=== PATIENT | male | born 1935 | race Caucasian/White ===

== ENCOUNTER 2016-11-14 22:14 | Emergency (ER) | payer BC, MEDICARE ==
[~2016-11-14] VITALS: Ht 172.7 cm; Wt 88.6 kg
[~2016-11-14 22:14] MED LIST: ACET-704 PO; AMLO5TAB2 PO; AMOX1TAB61 PO; ASCO-72 PO; ASCO10002 PO; ASPI-482 PO; CALC-157 PO; CALC600T4 PO; DIGO0.12 PO; FENO145T2 PO; FENO145T32 PO; FLAX100017 PO; FURO20TA3 PO; LISI10TA2 PO; LORA10TA3 PO; METF500T4 PO; METO200T3 PO; NIAC1000 PO; OMEG1CAP54 PO; POTA10CA PO; POTA15TA2 PO; PRED-220 PO; SILO8CAP PO; SPIR25TA3 PO; VALS320T2 PO; VIT1TABL2 PO; VITA150T PO; VITA400C37 PO; WARF1TAB7 PO; WARF2TAB7 PO
--- NOTE | 2016-11-14 22:46 | PHYS DOC ---
General Chief Complaint: MECHANICAL FALL Stated Complaint: head injury Time Seen by MD: 22:16 Source: patient, family, old records Exam Limitations: no limitations Problems: History of Present Illness Initial Comments Patient is an 81-year-old male who comes in the ED with his spouse with complaint of fall with head injury. Patient states that earlier this evening he was walking at home and stumbled/ rolled his right foot causing him to fall forward. He states that he landed on his right shoulder and forehead. Denies headache loss of consciousness photophobia and phonophobia and nausea vomiting focal weakness or neck pain. Patient takes Coumadin checked his INR at home prior to coming into the ED which resulted 2.6. Spouse states that after the patient fell she tried to get him up but he seemed more frustrated and exasperated that he has in the past with other falls. He initially complained of right shoulder pain but as I interview him he refuses evaluation stating that his shoulder no longer hurts. Pt states other than the abrasion on his forehead he is fine. Denies new or progressive symptoms. Spouse concerned for bleed due to coumadin, says they have been advised to come to ED with any fall that includes head trauma. Occurred: just prior to arrival Severity: moderate Injuries/Pain Location: head Context: tripped Loss of Consciousness: no loss of consciousness Modifying Factors: improves with other Associated Symptoms: denies symptoms Allergies: Coded Allergies: adhesive tape (Verified Allergy, Severe, Rash, 08/23/15) Past Medical History Medical History: other (CHF, hypertension, atrial fibrillation, hyperlipidemia , BPH, osteoarthritis, diabetes) Surgical History: other (cataracts, hernia, right ankle fusion, right elbow fracture) Social History Smoker: non-smoker Alcohol: none Drugs: none Review of Systems Constitutional: denies chills, denies diaphoresis, denies fever, denies malaise Eyes: denies blindness, denies blurred vision, denies photophobia Ears, Nose, Mouth, Throat: denies ear pain, denies ear discharge, denies nose pain, denies nose discharge, denies epistaxis, denies mouth pain, denies loose teeth, denies throat pain Respiratory: denies cough, denies shortness of breath, denies wheezing Cardiovascular: denies chest pain, denies palpitations, denies syncope Gastrointestinal: denies abdominal pain, denies diarrhea, denies nausea, denies vomiting Musculoskeletal: see HPI Skin: see HPI Psychiatric/Neurological: see HPI Physical Exam General Appearance: WD/WN, no apparent distress Head: no evidence of injury (small area of abrasion at the crown no swelling or palpable bony deformity. Otherwise head is normocephalic atraumatic negative Lees sign and negative raccoon eyes) Eyes: bilateral eye normal inspection, bilateral eye EOMI Ears, Nose, Mouth, Throat: hearing grossly normal, no evidence of ENT injury ( no ear or nose discharge no fluid behind TMs bilaterally), no dental injury Neck: non-tender, full range of motion, normal alignment Cardiovascular/Respiratory: normal peripheral pulses, no respiratory distress Back: no CVA tenderness, no vertebral tenderness Extremities: no evidence of injury, non-tender, pelvis stable Neurologic/Psychiatric: credit administration officer II-XII nml as tested, no motor/sensory deficits, alert, normal mood/affect, oriented x 3 Skin: normal color, warm/dry (small abrasion superior to forehead no bleeding/ fb) Milli Coma Score Best Eye Response: (4) open spontaneously Best Verbal Response: (5) oriented Best Motor Response: (6) obeys commands Milli Total: 15 Orders, Labs, Meds 0034: Time in Department [address] is pending patient will have prolonged ED course due to radiology delays. PATIENT: ALFREDO SHAH ACCOUNT: [id number] : 1935 LOCATION: ER AGE: 81 SEX: M EXAM STATUS: REG ER ORD. PHYSICIAN: DUSTIN GODOY DO REASON: fall/head trauma/coumadin PROCEDURE: CT HEAD AND CERVICAL SPINE WO Examination: CT head and cervical spine without contrast HISTORY: History of fall on Coumadin COMPARISON: None TECHNIQUE: Axial CT images of the head was performed without contrast. Axial images of the cervical spine was performed without contrast. Coronal and sagittal reformats were performed. Exposure: One or more of the following individualized dose reduction techniques were utilized for this examination: 1. Automated exposure control 2. Adjustment of the mA and/or kV according to patient size 3. Use of iterative reconstruction technique FINDINGS: There is no evidence of midline shift. There is no acute intracranial bleed or extra-axial fluid collection identified. The perez-white matter differentiation is maintained. Moderate bilateral periventricular white matter hypodensities likely chronic small vessel ischemic disease. The visualized lateral ventricles, third ventricle, fourth ventricle appropriate for age. The basal cisterns aren't effaced. Severe degenerative changes identified in the cervical spine throughout. Vertebral body heights are maintained. There is anterior cervical bony fusion at C4-C7 vertebral levels. The bilateral facets are well aligned. IMPRESSION: 1. No acute intracranial findings. 2. No acute fracture in cervical spine. Correlate clinically. 3. Severe degenerative changes cervical spine. There is bony fusion from C4 to C5 vertebral levels anteriorly with straightening of cervical lordosis. Electronically signed by: Jonah Garcia MD (11/15/2016 12:42 AM) DICTATED AND SIGNED BY: JONAH GARCIA MD DATE: 11/15/1637 CC: JESSICA BARILLAS MD; DUSTIN GODOY DO ~ I discussed findings with the patient he denies new or progressive symptoms. Patient becoming impatient requesting discharge. I discussed the treatment plan and follow-up patient and spouse expressed agreement and understanding. Departure Time of Disposition: 00:49 Disposition: HOME, SELF-CARE Diagnosis: fall, head injury, abrasion, chronic anticoagulati Condition: STABLE Patient Instructions: Fall Prevention and Home Safety, [id number], Head Injury, Adult, [id number] Additional Instructions: No strenuous activity or exercise until cleared by your doctor. Ice to painful areas 10-15 minutes 4-6 times daily as needed. [id number] Tylenol as needed for discomfort. Continue current medications. Take your time, request assistance or use assistive device as needed when standing and walking if feeling unstable. Follow-up with your doctor on Wednesday for recheck. Return to the ED with new or changing symptoms. DUSTIN GODOY DO Nov 14, 2016 22:46
--- NOTE | 2016-11-15 00:46 | RAD ---
Examination: CT head and cervical spine without contrast HISTORY: History of fall on Coumadin COMPARISON: None TECHNIQUE: Axial CT images of the head was performed without contrast. Axial images of the cervical spine was performed without contrast. Coronal and sagittal reformats were performed. Exposure: One or more of the following individualized dose reduction techniques were utilized for this examination: 1. Automated exposure control 2. Adjustment of the mA and/or kV according to patient size 3. Use of iterative reconstruction technique FINDINGS: There is no evidence of midline shift. There is no acute intracranial bleed or extra-axial fluid collection identified. The perez-white matter differentiation is maintained. Moderate bilateral periventricular white matter hypodensities likely chronic small vessel ischemic disease. The visualized lateral ventricles, third ventricle, fourth ventricle appropriate for age. The basal cisterns aren't effaced. Severe degenerative changes identified in the cervical spine throughout. Vertebral body heights are maintained. There is anterior cervical bony fusion at C4-C7 vertebral levels. The bilateral facets are well aligned. IMPRESSION: 1. No acute intracranial findings. 2. No acute fracture in cervical spine. Correlate clinically. 3. Severe degenerative changes cervical spine. There is bony fusion from C4 to C5 vertebral levels anteriorly with straightening of cervical lordosis. Electronically signed by: Jonah Garcia MD (11/15/2016 12:42 AM)
[2016-11-15 01:00] VITALS: BP 116/75
== END 2016-11-15 01:00 | disposition home or self-care (01) ==
LOC: ER 22:14
DX: S00.81XA Abrasion of other part of head, initial encounter (principal); S09.90XA Unspecified injury of head, initial encounter; I11.0 Hypertensive heart disease with heart failure; I50.9 Heart failure, unspecified; E78.5 Hyperlipidemia, unspecified; I48.91 Unspecified atrial fibrillation; N40.0 Benign prostatic hyperplasia without lower urinary tract symptoms; M19.90 Unspecified osteoarthritis, unspecified site; E11.36 Type 2 diabetes mellitus with diabetic cataract; Z88.8 Allergy status to other drugs, medicaments and biological substances; W19.XXXA Unspecified fall, initial encounter; Y92.89 Other specified places as the place of occurrence of the external cause; Y99.8 Other external cause status; Y93.01 Activity, walking, marching and hiking
CPT/HCPCS: 70450; 72125; 99284-25

== ENCOUNTER 2017-02-21 12:39 | Emergency (ER) | payer BC, MEDICARE ==
[~2017-02-21] VITALS: Ht 172.7 cm; Wt 88.6 kg
[~2017-02-21 12:39] MED LIST changes: -METO200T3 PO; +METO200T5 PO
[2017-02-21] MEDS ORDERED: cefTRIAXone IM 1 GM VIAL IM ONE (14:10)
--- NOTE | 2017-02-21 15:28 | RAD ---
CT orbits without contrast 02/21/2017 at 1348 hours Indication: Status post abscess removal of the inferior left eye. Comparison: CT orbits 11/14/2016 Technique: Multiple axial CT images of the orbits were obtained without intravenous contrast. Coronal and sagittal reformats are provided. Findings: There is low-attenuation in the periventricular white matter compatible with chronic small vessel ischemic changes. Mild prominence the ventricles, sulci and basal cisterns is compatible with mild generalized cerebral volume loss. Paranasal sinuses are well aerated. Bilateral lens replacement noted. There is left orbital preseptal soft tissue thickening. No post septal fat stranding is identified. Intraconal and extra coronal fat is preserved. Extraocular muscles are intact. Optic nerves appear normal. Impression: Findings are compatible with left preseptal cellulitis without orbital extension. No subperiosteal abscess. PQRS Compliance Statement: One or more of the following individualized dose reduction techniques were utilized for this examination: 1. Automated exposure control 2. Adjustment of the mA and/or kV according to patient size 3. Use of iterative reconstruction technique
[2017-02-21] MEDS ORDERED: CLIN300C8 PO (15:35)
--- NOTE | 2017-02-21 15:35 | PHYS DOC ---
General Chief Complaint: SKIN PROBLEM Stated Complaint: SKIN PROBLEM Time Seen by MD: 13:31 Source: patient Exam Limitations: no limitations Problems: History of Present Illness Initial Comments Patient is an 82-year-old male sent to the ED by his stock unloader for antibiotic prescription. Patient states that he had an abscess removed from his left eyelid earlier this week with Dr. Carrasco. The past 2 days she's had increased swelling and tenderness at the inferolateral and supraorbital regions. He denies any vision change and states he has discomfort rated 3 out of 10 sharp and throbbing. He has warmth at the red and tender areas on his face and has painless extraocular movements. He called Dr. Carrasco earlier today called in cephalexin to the pharmacy. The pharmacist states that the prescription recording was cut off and he was unable to fill any prescriptions. The patient tried to contact Dr. Carrasco again who was unable to reach pharmacist and directed the patient to come to the ED for a cephalexin prescription. Dr. Carrasco has not seen the patient since he developed a swelling patient is afebrile and no tachycardia on ED arrival. I discussed needed with the patient to check a CT to rule out orbital involvement he and his spouse are agreeable. Timing/Duration: last week Severity: moderate Location: eye (L) Prearrival Treatment: over the counter meds Modifying Factors: improves with other Associated Symptoms: other Allergies: Coded Allergies: adhesive tape (Verified Allergy, Severe, Rash, 08/23/15) amiodarone (Verified Allergy, Mild, 02/22/17) HAIR FALLS OUT Past Medical History Medical History: other (atrial fibrillation, arthritis, hyperlipidemia, hypertension) Surgical History: noncontributory Social History Smoker: non-smoker Alcohol: rarely Drugs: none Constitutional: denies chills, denies diaphoresis, denies fever, denies malaise Eyes: see HPI, denies blindness, denies blurred vision, denies drainage, denies decreased acuity Ears: denies dizziness, denies pain, denies tinnitus Nose: denies clots, denies congestion, denies epistaxis Throat: denies pain, denies swelling, denies neck stiffness, denies painful swallowing Respiratory: denies cough, denies shortness of breath Cardiovascular: denies chest pain, denies palpitations Gastrointestinal: denies nausea, denies vomiting Skin: see HPI Neurological: denies headache, denies numbness, denies paresthesia Physical Exam General Appearance: WD/WN, no apparent distress Eyes: left eye other (erythema and tenderness and warmth noted at the supra and infraorbital regions of the left face. No fluctuance or purulence no eye drainage), bilateral eye normal inspection, bilateral eye PERRL, bilateral eye EOMI Nose: normal inspection Mouth/Throat: normal mouth inspection, pharynx normal Neck: non-tender, supple Cardiovascular/Respiratory: normal peripheral pulses, normal breath sounds, no respiratory distress Neurologic/Psychiatric: failure analysis engineer II-XII nml as tested, no motor/sensory deficits, alert, normal mood/affect, oriented x 3 Skin: warm/dry (left face as above) Orders, Labs, Meds PATIENT: ALFREDO SHAH ACCOUNT: [id number] : 1935 LOCATION: ER AGE: 82 SEX: M EXAM STATUS: REG ER ORD. PHYSICIAN: DUSTIN GODOY DO REASON: s/p abscess removal inferior left eye, r/o orbital cellulitis PROCEDURE: CT ORBITS WO CONTRAST CT orbits without contrast 02/21/2017 at 1348 hours Indication: Status post abscess removal of the inferior left eye. Comparison: CT orbits 11/14/2016 Technique: Multiple axial CT images of the orbits were obtained without intravenous contrast. Coronal and sagittal reformats are provided. Findings: There is low-attenuation in the periventricular white matter compatible with chronic small vessel ischemic changes. Mild prominence the ventricles, sulci and basal cisterns is compatible with mild generalized cerebral volume loss. Paranasal sinuses are well aerated. Bilateral lens replacement noted. There is left orbital preseptal soft tissue thickening. No post septal fat stranding is identified. Intraconal and extra coronal fat is preserved. Extraocular muscles are intact. Optic nerves appear normal. Impression: Findings are compatible with left preseptal cellulitis without orbital extension. No subperiosteal abscess. PQRS Compliance Statement: One or more of the following individualized dose reduction techniques were utilized for this examination: 1. Automated exposure control 2. Adjustment of the mA and/or kV according to patient size 3. Use of iterative reconstruction technique DICTATED AND SIGNED BY: ALLISON VERMA MD DATE: 02/21/17 1523 CC: JESSICA BARILLAS MD; DUSTIN GODOY DO ~ I discussed prescription medications and prescribed clindamycin for MRSA coverage and no interactions with Coumadin. I discussed signs and symptoms to monitor and indications to return the patient will follow-up closely with Dr. Carrasco. Departure Time of Disposition: 15:33 Disposition: 01 HOME, SELF-CARE Diagnosis: postoperative left facial cellulitis Condition: GOOD Patient Instructions: Cellulitis, Ylsu-sj-Tyor Additional Instructions: Pufx-pou-yaoenyp Tylenol as needed for discomfort. Prescription: Clindamycin, take as directed (no interaction with Coumadin and will cover MRSA) Follow-up with Dr. Carrasco in 1-2 days for recheck. Return to ED with new or changing symptoms. DUSTIN GODOY DO Feb 21, 2017 15:35
[2017-02-21 15:52] VITALS: BP 126/65
[2017-02-22] MEDS ORDERED: WARF1TAB74 PO (15:14)
[2017-02-25] MEDS ORDERED: AMOX1TAB61 PO (07:32)
== END 2017-02-21 15:53 | disposition home or self-care (01) ==
LOC: ER 12:39
DX: L76.82 Other postprocedural complications of skin and subcutaneous tissue (principal); L03.211 Cellulitis of face; I48.91 Unspecified atrial fibrillation; I10 Essential (primary) hypertension; E78.5 Hyperlipidemia, unspecified; Z88.8 Allergy status to other drugs, medicaments and biological substances; Z91.048 Other nonmedicinal substance allergy status; Y83.8 Other surgical procedures as the cause of abnormal reaction of the patient, or of later complication, without mention of misadventure at the time of the procedure; Y92.89 Other specified places as the place of occurrence of the external cause
CPT/HCPCS: 70480; 96372; 99284; J0696

== ENCOUNTER 2017-02-22 13:36 | Inpatient (IN) | payer BC, MEDICARE ==
[~2017-02-22] VITALS: Ht 172.7 cm; Wt 83.1 kg
[~2017-02-22 13:36] MED LIST changes: +CLIN300C8 PO
[2017-02-22 13:50] VITALS: BP 121/68
[2017-02-22 14:11] VITALS: BP 121/68
[2017-02-22] MEDS ORDERED: HYDROcodone/APAP 5/325MG 1 TAB TABLET PO PRN (14:30)
[2017-02-22] MEDS ORDERED: ONDANSETRON ODT 4 MG TAB.RAPDIS PO PRN (14:30)
[2017-02-22] MEDS ORDERED: ACETAMINOPHEN 325 MG TABLET PO PRN (14:30)
[2017-02-22 14:46] LABS: COLOR,URINE YELLOW
[2017-02-22 14:47] LABS: BACTERIA,URINE FEW /HPF (0-FEW); BILIRUBIN,URINE NEG (NEG); CLARITY,URINE CLEAR; GLUCOSE,URINE NEG (NEG); HYALINE CASTS, URINE FEW /HPF; NITRITE,URINE NEG (NEG); SQUAMOUS EPITHELIAL CELL,UR OCC /LPF; UROBILINOGEN,URINE 0.2 mg/dL (0.2 mg/dL)
[2017-02-22] MEDS ORDERED: VANCOMYCIN 2 GM in IV NORMAL SALINE 500ML 500 ML IV ONE (15:00)
[2017-02-22 15:14] LABS: BASO # 0.1 x10^3/uL (0.0-0.2); BASO % 1 % (0-3); EOS # 0.3 x10^3/uL (0.0-0.7); EOS % 7 % (0-3); HEMATOCRIT 38.9 % (39.0-53.0); HEMOGLOBIN 13.3 g/dL (13.0-17.5); LYMPH # 1.1 x10^3/uL (1.0-4.8); LYMPH % 24 % (24-48); MEAN CORPUSCULAR HEMOGLOBIN 33 pg (25-35); MEAN CORPUSCULAR HGB CONC 34 g/dL (31-37); MEAN CORPUSCULAR VOLUME 95 fL (79-100); MONO # 0.6 x10^3/uL (0.0-1.1); MONO % 14 % (0-9); NEUT # 2.4 x10^3uL (1.8-7.7); NEUT % 54 % (31-73); PLATELET COUNT 150 x10^3/uL (140-400); RED BLOOD COUNT 4.08 x10^6/uL (4.30-5.70); WHITE BLOOD COUNT 4.4 x10^3/uL (4.0-11.0)
[2017-02-22] MEDS ORDERED: WARF1TAB74 PO (15:14)
[2017-02-22 15:24] LABS: ALBUMIN/GLOBULIN RATIO 0.9 (1.0-1.7); CALCIUM 9.1 mg/dL (8.5-10.1); CREATININE 1.4 mg/dL (0.7-1.3); GFR 48.6; MAGNESIUM 1.8 mg/dL (1.8-2.4); POTASSIUM 3.8 mmol/L (3.5-5.1); TOTAL BILIRUBIN 0.8 mg/dL (0.2-1.0); TOTAL PROTEIN 6.4 g/dL (6.4-8.2)
[2017-02-22] MEDS ORDERED: IV NORMAL SALINE 250ML 250 ML ONE (16:32)
[2017-02-22] MEDS: WARFARIN 1 MG TABLET. PO SCH (16:57)
[2017-02-22] MEDS: VANCOMYCIN PER PHARMACY MC PRN (17:15)
--- NOTE | 2017-02-22 17:16 | NUR ---
Pharmacy Vancomycin Dosing Note S:Consulted to monitor and dose vancomycin started 02/22/17. O:ALFREDO SHAH is a 82 year old M with Cellulitis . Height: 5 feet, 8 inches Weight: 87.865389 kg [place] Body Weight: Adjusted Body Weight: Dosing Weight: Actual Other Antibiotics: ZOSYN 4.5GRAM Q8HRS LABS: Last BUN: 30 Last Creatinine: 1.4 Creatinine Clearance: Last WBC: 4.4 Last Platelets: 150 Tmax (past 24 hours): Microbiology: I/O: Drug Levels: Last level: on at Last dose given 02/22/17 at 1658 Vancomycin Dosing: Loading Dose: 2000 mg x1 Dosing Weight: Actual Target Trough: 10-20 A: Based on: P: 1. Start Vancomycin 1500 mg IV q24h 2. Follow up Trough level on 02/24/17 at 1630 3. Pharmacy will continue to monitor, follow and adjust therapy as needed. CATY MEYER [facility], 02/22/17 2700
--- NOTE | 2017-02-22 18:47 | NUR ---
NSG NOTE; ADMISSION DIRECT ADMIT FROM DR GUZMAN OFFICE VIA W/C ACCOMP BY PT C/O CELLULITIS LEFT FACE DEVELOPING SINCE CYST REMOVAL ON 02-08-17.
[2017-02-22 19:00] VITALS: BP 144/86
--- NOTE | 2017-02-22 19:14 | NUR ---
Wound Care Wound care consult for cellulitis in L face and wraps on legs. Pt has dark red area from left eye to chin but has no open areas for wound care. He stated it was draining yesterday but it had stopped. Told pt if it started again he can let us know and we will reassess. Pt had unna boots on BLE that were placed last Wednesday by HHRN. Removed them, cleansed legs and rewrapped with calazime, medigrip-G, kerlix and coban. Pt stated if they are not wrapped they will swell and blister. Pt BLE have no open areas or edema at this time. Educated pt that these wraps will work as replacement until he can have HH rewrap them. Discussed circaid wraps with pt and , they will discuss with HH how to obtain these wraps so he can remove them to shower, etc. Pt is known to [facility] from previous BLE wounds, he will follow up outpatient if he develops any new wounds in the future. Will continue to monitor cellulitis and legs while inpatient. Next visit will be 03/02 if still here.
[2017-02-22] MEDS: PIPERACILLIN/TAZOBACTAM 4.5 GM in IV NORMAL SALINE 50ML 50 ML IV SCH (19:26)
--- NOTE | 2017-02-22 20:27 | HP ---
ADMIT DATE: 02/22/2017 REASON FOR ADMISSION: Cellulitis of the face. HISTORY OF PRESENT ILLNESS: This is an 82-year-old gentleman who had a skin lesion removed under his left eye on Wednesday02/16/2017. The left side of his face became progressively swollen and red and he went to the Emergency Room on 02/21/2017. A CAT scan was done in the Emergency Room, which showed the cellulitis, but not involving the orbits. No blood work at that time, but he did receive a shot of Rocephin and clindamycin prescription for 300 mg 3 times a day. PAST MEDICAL HISTORY: Atrial fibrillation, hypertension, BPH, chronic pain and diet-controlled type 2 diabetes. Also he has chronic lower extremity swelling and is under treatment with Wound Care for weeping and swelling in the lower extremities and he has weakly wrapping and treatment of the legs by Wound Care at home. ALLERGIES: ADHESIVE TAPE AND AMIODARONE. MEDICATIONS: Reviewed and verified with the patient. PAST SURGICAL HISTORY: Cataract removal, hernia repair, recent small lesion removed under his left eye. Right ankle fusion. Growth removed from left thigh. FAMILY HISTORY: Hyperlipidemia in his mother, dementia in his father. HABITS: Never smoked. Does drink caffeine. Occasional alcohol. IMMUNIZATIONS: Pneumococcal PCV13 on 09/07/2016. Flu shot 2014, and vari-zoster immunization February 2016. REVIEW OF SYSTEMS: As per HPI. OBJECTIVE: VITAL SIGNS: Blood pressure 121/68, pulse 65, respirations 18, temperature 97.7, pulse ox is 93% on room air. Height 68 inches, weight 192.13 pounds. GENERAL: An 82-year-old in no acute distress. HEENT: Ear canals are normal. Face is swollen and erythematous. No drainage from the nose. He has swelling on the left side of his face. Suture line is intact. There is 1 running suture outside of the skin. There is some mild drainage. The eye is open, it is not injected. Vision is normal. His throat was clear. NECK: Supple. LUNGS: Clear to auscultation. CARDIOVASCULAR: Regular rhythm and rate. ABDOMEN: Soft, nontender. EXTREMITIES: Were wrapped and did not appear to have edema. LABORATORY DATA: White count is 4.4, hemoglobin 13.3, hematocrit 38.9. Chemistry: CO2 is 36, BUN is 30, creatinine is 1.4, albumin 3.0. INR is 1.8. Urinalysis has 1-4 white cells and a few red cells. ASSESSMENT: 1. Periorbital cellulitis. 2. Facial cellulitis with extension to the right cheek. 3. Chronic lower extremity swelling and weeping. 4. Chronic kidney disease stage 3. 5. Mild protein calorie malnutrition. 6. Long-term use of anticoagulants. Coumadin just slightly below therapeutic range. PLAN: IV antibiotics. Wound consult also for the lower extremities. She is due for a change tomorrow. Consult to Dr. Ti Martini. DOMINGO REDMAN DO DR: KRISHNA/rodolfo JOB#: [id number] / [id number] JESSICA Larose MD
--- NOTE | 2017-02-22 20:55 | NUR ---
Post void bladder scan 153ml.
[2017-02-22] MEDS ORDERED: Influenza vaccine per PROTOCOL. MC PRN (21:00)
[2017-02-22] MEDS: ASPIRIN ENTERIC COATED 81 MG TABLET.DR. PO SCH (21:24)
[2017-02-22] MEDS: FENOFIBRATE NANOCRYSTALLIZED 145 MG TABLET PO SCH (21:25)
[2017-02-22] MEDS: TAMSULOSIN 0.4 MG CAP.ER.24H. PO SCH (21:25)
[2017-02-22 23:00] VITALS: BP 97/52
[2017-02-23] MEDS: PIPERACILLIN/TAZOBACTAM 4.5 GM in IV NORMAL SALINE 50ML 50 ML IV SCH ×4 (00:25→22:54)
[2017-02-23 03:00] VITALS: BP 118/64
[2017-02-23 05:47] VITALS: BP 130/75
[2017-02-23 06:29] LABS: BASO % 1 % (0-3); EOS # 0.4 x10^3/uL (0.0-0.7); EOS % 8 % (0-3); HEMATOCRIT 39.9 % (39.0-53.0); HEMOGLOBIN 13.9 g/dL (13.0-17.5); LYMPH # 1.4 x10^3/uL (1.0-4.8); LYMPH % 29 % (24-48); MEAN CORPUSCULAR HEMOGLOBIN 33 pg (25-35); MEAN CORPUSCULAR HGB CONC 35 g/dL (31-37); MEAN CORPUSCULAR VOLUME 95 fL (79-100); MONO # 0.5 x10^3/uL (0.0-1.1); MONO % 11 % (0-9); NEUT # 2.4 x10^3uL (1.8-7.7); NEUT % 50 % (31-73); PLATELET COUNT 144 x10^3/uL (140-400); RED CELL DISTRIBUTION WIDTH 15.7 % (11.5-14.5); WHITE BLOOD COUNT 4.8 x10^3/uL (4.0-11.0)
[2017-02-23 06:42] LABS: ALBUMIN/GLOBULIN RATIO 0.9 (1.0-1.7); CREATININE 1.4 mg/dL (0.7-1.3); GFR 48.6; MAGNESIUM 1.8 mg/dL (1.8-2.4); TOTAL BILIRUBIN 1.1 mg/dL (0.2-1.0); TOTAL PROTEIN 6.5 g/dL (6.4-8.2)
--- NOTE | 2017-02-23 06:59 | CONS ---
DATE OF CONSULTATION: 02/22/2017 TIME: 17:30 hours. PHYSICIAN REQUESTING CONSULTATION: Dixie Longo DO. CHIEF COMPLAINT: Swollen left side of face. HISTORY OF PRESENT ILLNESS: This 82-year-old male underwent an excisional biopsy of the lesion involving the left lower lid and upper cheek 1 week ago. This weekend, 3 days ago, the patient's called me via answering service complaining of some swelling on the side of the face around the site of the incision. She states her has frequent cellulitis and she was concerned about this. A prescription for Keflex 500 mg b.i.d. was called into the pharmacy, but by the next day, the patient called and stated that they did not get the medication as the pharmacy did not have it. At this point, she said the swelling was worse, therefore, she was instructed to go to the Emergency Room for treatment. The patient was then placed on clindamycin and sent home. This morning, the patient's felt that he was worse, therefore, he was taken into Dr. Luna's office. Dr. Luna discussed the case with me by phone. He felt that the skin looked bad enough that he should be admitted for IV therapy. The patient states that since this morning, the swelling has gotten significantly better. He denies pain or change in vision. He does state he had a slightly discolored discharge from the wound yesterday. The patient has had a CT scan and per Dr. Luna, all the swelling was preseptal. The patient is now on Zosyn and vancomycin IV. ALLERGIES: INCLUDE ADHESIVE TAPE AND AMIODARONE. PAST MEDICAL HISTORY: Includes recurrent cellulitis of the leg, pneumonia, atrial fibrillation, congestive heart failure, myocardial infarction, increased cholesterol, sleep apnea. PAST SURGICAL HISTORY: Includes an open reduction and fixation of the right ankle, hernia repair. FAMILY HISTORY: Significant for hypertension, diabetes, cardiovascular disease. SOCIAL HISTORY: The patient lives at home with his . REVIEW OF SYSTEMS: Please see admitting physician history and physical. MEDICATIONS: Please see . PHYSICAL EXAMINATION: Done at bedside. GENERAL: He is a well-developed, well-nourished male in no acute distress. He is alert and oriented x 3. External evaluation reveals significant erythema and ecchymosis involving the upper lid, infraorbital cheek and to the mandible over to the nose on the left side. It is nontender to touch. There is no discharge and there is no tenderness to palpation. No swelling is actually noted at the present time. The conjunctiva is quiet. Pupils are equal, round, reactive to light. The globe was intact. There is no evidence of restricted motility and the surgical wound is intact. No discharge. The wound edges were opposed well. IMPRESSION: 1. Preseptal cellulitis, apparently resolving, responding well to intravenous antibiotics. 2. Ecchymosis secondary to anticoagulation. PLAN: Agree with present treatment. I will see the patient in the office to remove his sutures later this week. Thank you for consulting me in this case. Please let me know if there is more that I can do. JANE ROME DO DR: José Miguel JOB#: [id number] / [id number]
[2017-02-23] MEDS ORDERED: NON FORMULARY ITEM (Flaxseed Oil (Flax Seed Oil) 1,000 MG) PO SCH (09:00)
[2017-02-23] MEDS: VITAMIN E. 400 UNIT CAPSULE. PO SCH (09:04)
[2017-02-23] MEDS: OMEGA-3 FATTY ACIDS/FISH OIL 1,000 MG CAPSULE. PO SCH (09:05)
[2017-02-23] MEDS: LOSARTAN 50 MG TABLET. PO SCH (09:06)
[2017-02-23] MEDS: CETIRIZINE HCL 10 MG TABLET PO SCH (09:06)
[2017-02-23] MEDS: CALCIUM CARB/VIT D3 500/200 TABLET PO SCH (09:06)
[2017-02-23] MEDS: FUROSEMIDE 40 MG TABLET PO SCH (09:06)
[2017-02-23] MEDS: METOPROLOL SUCC 24HR ER 50 MG TAB.ER.24H. PO SCH (09:06)
[2017-02-23] MEDS: POTASSIUM CHLORIDE 10 MEQ TABLET.ER. PO SCH (09:07)
[2017-02-23 11:26] VITALS: BP 133/69
--- NOTE | 2017-02-23 14:17 | NUR ---
Pharmacy Warfarin Dosing Note S:Pharmacy consulted to assist with anticoagulation therapy started 02/22/17 with target INR: 2 -3 O:ALFREDO SHAH is a 82 year old M with Atrial Fibrillation LABS: Last INR: 1.9 Last HGB: 13.9 Last HCT: 39.9 Last PLT: 144 Last dose of 1 mg given on 02/22/17 at 1600 Previous Regimen: 1MG/ 1.5MG DAILY ALTERNATING Vitamin K given: N Drug Interaction Changes: Same Interacting Drug Ongoing Drug Interactions: A:INR Below desired Range. Target Range for this patient is: 2 -3 P: Warfarin dose: 1.5MG HOME DOSE Today at 1600 Bridge Therapy: None Next INR due 02/24/17 @ 0600 Pharmacy anticoagulation service will continue to follow. CATY MEYER [facility], 02/23/17 6912
[2017-02-23 15:00] VITALS: BP 135/73
[2017-02-23] MEDS ORDERED: WARFARIN 1 MG TABLET. PO SCH (16:00)
[2017-02-23] MEDS: VANCOMYCIN 1.5 GM in IV NORMAL SALINE 500ML 500 ML IV SCH (17:05)
[2017-02-23 19:00] VITALS: BP 154/95
[2017-02-23] MEDS: ASPIRIN ENTERIC COATED 81 MG TABLET.DR. PO SCH (20:56)
[2017-02-23] MEDS: FENOFIBRATE NANOCRYSTALLIZED 145 MG TABLET PO SCH (20:56)
[2017-02-23] MEDS: TAMSULOSIN 0.4 MG CAP.ER.24H. PO SCH (20:56)
[2017-02-23 23:00] VITALS: BP 148/89
--- NOTE | 2017-02-24 01:51 | PN ---
DATE: PROBLEMS: 1. Periorbital cellulitis. 2. Facial cellulitis. 3. Status post lesion removal of the left lower lid and cheek. 4. Chronic kidney disease, stage III. 5. Chronic lower extremity swelling and weeping. 6. Long-term use of anticoagulants, INR 1.9. 7. Mild protein malnutrition. SUBJECTIVE: He is doing a little bit better this morning. Facial swelling has decreased. He is sitting up, eating his breakfast. He was seen by Dr. Carrasco, network operations center engineer, yesterday in consultation. He is afebrile. OBJECTIVE: VITAL SIGNS: Blood pressure 130/75, pulse 80, respirations 18, pulse ox 94% on room air, temperature 97.6, alert and oriented. HEENT: Tongue was moist. NECK: Supple. LUNGS: Clear. CARDIOVASCULAR: Slightly irregular rhythm and rate. ABDOMEN: Soft, nontender. EXTREMITIES: Without edema as they are wrapped. His face swelling and erythema has decreased considerably, but still has erythema, no drainage noted. LABORATORY DATA: Today, BUN is 28 and creatinine is 1.4. Alkaline phosphatase 157, decreased from 182. Albumin is 3. INR is 1.9. PLAN: Continue IV antibiotics. He also has mild protein malnutrition with an albumin of 3.0. We will go ahead and in Boost daily. DOMINGO REDMAN DO DR: KRISHNA/rodolfo JOB#: [id number] / [id number]
[2017-02-24 03:59] VITALS: BP 133/85
[2017-02-24] MEDS: PIPERACILLIN/TAZOBACTAM 4.5 GM in IV NORMAL SALINE 50ML 50 ML IV SCH ×3 (05:45→22:26)
[2017-02-24 06:22] LABS: BASO # 0.1 x10^3/uL (0.0-0.2); BASO % 1 % (0-3); EOS # 0.4 x10^3/uL (0.0-0.7); EOS % 7 % (0-3); HEMATOCRIT 38.7 % (39.0-53.0); HEMOGLOBIN 13.4 g/dL (13.0-17.5); LYMPH % 20 % (24-48); MEAN CORPUSCULAR HEMOGLOBIN 33 pg (25-35); MEAN CORPUSCULAR HGB CONC 35 g/dL (31-37); MEAN CORPUSCULAR VOLUME 95 fL (79-100); MONO # 0.5 x10^3/uL (0.0-1.1); MONO % 10 % (0-9); NEUT # 3.1 x10^3uL (1.8-7.7); NEUT % 62 % (31-73); PLATELET COUNT 133 x10^3/uL (140-400); RED BLOOD COUNT 4.07 x10^6/uL (4.30-5.70); RED CELL DISTRIBUTION WIDTH 15.3 % (11.5-14.5); WHITE BLOOD COUNT 5.1 x10^3/uL (4.0-11.0)
[2017-02-24 06:30] LABS: ALBUMIN 2.9 g/dL (3.4-5.0); ALBUMIN/GLOBULIN RATIO 0.8 (1.0-1.7); CALCIUM 8.7 mg/dL (8.5-10.1); CREATININE 1.4 mg/dL (0.7-1.3); GFR 48.6; MAGNESIUM 1.8 mg/dL (1.8-2.4); POTASSIUM 3.7 mmol/L (3.5-5.1); TOTAL BILIRUBIN 1.1 mg/dL (0.2-1.0); TOTAL PROTEIN 6.6 g/dL (6.4-8.2)
[2017-02-24 08:20] VITALS: BP 153/53
[2017-02-24] MEDS: CETIRIZINE HCL 10 MG TABLET PO SCH (08:22)
[2017-02-24] MEDS: FUROSEMIDE 40 MG TABLET PO SCH (08:23)
[2017-02-24] MEDS: LOSARTAN 50 MG TABLET. PO SCH (08:23)
[2017-02-24] MEDS: VITAMIN E. 400 UNIT CAPSULE. PO SCH (08:23)
[2017-02-24] MEDS: POTASSIUM CHLORIDE 10 MEQ TABLET.ER. PO SCH (08:24)
[2017-02-24] MEDS: CALCIUM CARB/VIT D3 500/200 TABLET PO SCH (08:24)
[2017-02-24] MEDS: OMEGA-3 FATTY ACIDS/FISH OIL 1,000 MG CAPSULE. PO SCH (08:24)
[2017-02-24] MEDS: METOPROLOL SUCC 24HR ER 50 MG TAB.ER.24H. PO SCH (08:25)
--- NOTE | 2017-02-24 08:43 | NUR ---
Pt is sitting up on bedside, just finished with breakfast, ate well. Has O2 on at 2L/NC as pt has increasingly became SOA through the night. SpO2 had dropped to 87%, with O2 on he was at 98% so decreased to 1L at this time. Pt denies any pain. IV site in LAC flushed and capped. Urinal emptied 100cc of clear yellow urine. Assessment completed. Pt A/O x4/. Bilateral lower extremities have uniboots on. Denies further needs at this time, call light within reach.
[2017-02-24] MEDS ORDERED: Influenza vaccine per PROTOCOL. MC PRN (09:00)
[2017-02-24] MEDS ORDERED: FLU VACC QS2017-18 (36MOS+)/PF 0.5 ML SYRINGE. VAX IM ONE (09:00)
--- NOTE | 2017-02-24 09:04 | RAD ---
Indication shortness of air. A single view of the chest was obtained and is compared to an examination 07/29/2016. There are chronic pleural-parenchymal changes. Heart and pulmonary vessels are similar. A significant change in the appearance of the chest is not seen. There is no significant pleural fluid. There is no pneumothorax. IMPRESSION: Chronic changes. No definite acute finding or significant change relative to the previous exam is seen
[2017-02-24 10:50] VITALS: BP 111/62
--- NOTE | 2017-02-24 13:34 | NUR ---
Pharmacy Warfarin Dosing Note S:Pharmacy consulted to assist with anticoagulation therapy started 02/22/17 with target INR: 2 -3 O:ALFREDO SHAH is a 82 year old M with Atrial Fibrillation LABS: Last INR: 2.2 Last HGB: 13.4 Last HCT: 38.7 Last PLT: 133 Last dose of 1.5MG given on 02/23/17 at 1600 Previous Regimen: 1MG/ 1.5MG DAILY ALTERNATING Vitamin K given: N Drug Interaction Changes: Same Interacting Drug A:INR is within the desired range. Target range for this patient is: 2 -3 P: Warfarin dose: Coumadin 1mg po today at 1600 Bridge Therapy: None Next INR due 02/25/17. Pharmacy anticoagulation service will continue to follow. MARISA DALAL [facility] 02/24/17 [id number]
--- NOTE | 2017-02-24 14:20 | CARD ---
APPROVED REPORT EXAM: Two-dimensional and M-mode echocardiogram with Doppler and color Doppler. Other Information Quality : Fair Rhythm : Atrial Flutter INDICATION Elevated BNP, hypoxia 2D DIMENSIONS RVDd3.3 (2.9-3.5cm)Left Atrium(2D)3.3 (1.6-4.0cm) IVSd1.1 (0.7-1.1cm)Aortic Root(2D)2.9 (2.0-3.7cm) LVDd4.4 (3.9-5.9cm)LVOT Diameter2.2 (1.8-2.4cm) PWd1.1 (0.7-1.1cm)LVDs2.7 (2.5-4.0cm) FS (%) 30.1 %SV58.2 ml LVEF(%)60.3 (>50%) Aortic Valve AoV Peak Arnaldo.203.4cm/sAoV VTI40.3cm AO Peak GR.16.5mmHgLVOT Peak Arnaldo.80.2cm/s LVOT VTI 16.09cmAO Mean GR.9mmHg KEN (VMAX)1.68zx1WML (VTI)1.49cm2 Mitral Valve MV E Zgpcowvi349.4cm/sMV E Peak Gr.4mmHg MV DECEL HAIZ192iwDE A Velocity0.4cm/s MV E Mean Gr.2mmHgMV LNI45mc E/A Mvbph596.5MVA (PHT)4.51cm2 Tricuspid Valve TR P. Ewrsexap162jt/sRAP VDLBWEPJ1bwZh TR Peak Gr.47ghCpPIEF39kxPb LEFT VENTRICLE The left ventricle is normal size. There is normal left ventricular wall thickness. Left ventricle sy stolic function is normal. The Ejection Fraction is 55-60%. There is normal LV segmental wall motion. There is no ventricular septal defect visualized. RIGHT VENTRICLE The right ventricle is normal size. The right ventricular systolic function is normal. ATRIA The left atrium size is normal. The right atrium size is normal. The interatrial septum is intact wit h no evidence for an atrial septal defect or patent foramen ovale as noted on 2-D or Doppler imaging. AORTIC VALVE The aortic valve is moderately calcified. The aortic valve is trileaflet. Doppler and Color Flow reve aled no significant aortic regurgitation. Mild aortic stenosis with a calculated aortic valve area is 1.5 cm2 with maximum pressure gradient of 17 mmHg and mean pressure gradient of 9 mmHg. MITRAL VALVE Mitral annular calcification is borderline. There is no mitral valve stenosis. Doppler and Color Flow revealed mild mitral regurgitation. TRICUSPID VALVE The tricuspid valve is normal in structure and function. Doppler and Color Flow revealed mild tricusp id regurgitation. The PA pressure was estimated at 50 mmHg. There is no tricuspid valve stenosis. PULMONIC VALVE The pulmonic valve is not well visualized. Doppler and Color Flow revealed no pulmonic valvular regur gitation. There is no pulmonic valvular stenosis. GREAT VESSELS The aortic root is normal in size. Due to poor image quality, the IVC could not be assessed. PERICARDIAL EFFUSION There is no evidence of significant pericardial effusion. Critical Notification Critical Value: No <Conclusion> The left ventricle is normal size. Left ventricle systolic function is normal. The Ejection Fraction is 55-60%. Mild aortic stenosis with a calculated aortic valve area is 1.5 cm2 with maximum pressure gradient of 17 mmHg and mean pressure gradient of 9 mmHg. Doppler and Color Flow revealed no significant aortic regurgitation. Doppler and Color Flow revealed mild mitral regurgitation. Doppler and Color Flow revealed mild tricuspid regurgitation. The PA pressure was estimated at 50 mmHg.
[2017-02-24 15:39] VITALS: BP 102/64
[2017-02-24] MEDS: WARFARIN 1 MG TABLET. PO SCH (16:19)
[2017-02-24 17:29] LABS: VANC TR 16.3 mcg/mL (10.0-20.0)
[2017-02-24] MEDS: VANCOMYCIN 1.5 GM in IV NORMAL SALINE 500ML 500 ML IV SCH (18:18)
[2017-02-24 18:46] VITALS: BP 117/69
[2017-02-24] MEDS: TAMSULOSIN 0.4 MG CAP.ER.24H. PO SCH (20:28)
[2017-02-24] MEDS: ASPIRIN ENTERIC COATED 81 MG TABLET.DR. PO SCH (20:28)
[2017-02-24] MEDS: FENOFIBRATE NANOCRYSTALLIZED 145 MG TABLET PO SCH (20:28)
[2017-02-24 23:00] VITALS: BP 126/72
--- NOTE | 2017-02-25 00:09 | PN ---
DATE: 02/24/2017 CURRENT PROBLEMS: 1. Periorbital cellulitis. 2. Facial cellulitis. 3. Status post lesion removal of left lower lid. 4. Chronic kidney disease stage 3. 5. Chronic lower extremity swelling and weeping. 6. Long-term use of anticoagulants. 7. Mild protein malnutrition. 8. Mild hypoxia. SUBJECTIVE: Noted, the patient is requiring a little bit of oxygen, he is not on oxygen at home. He has received a lot of IV fluids and IV antibiotics, and this may be more fluid than he used to be getting. He himself has no particular complaints and is feeling reasonably well. OBJECTIVE: VITAL SIGNS: Blood pressure 111/62, pulse 63, respirations 20, temperature 97.6, pulse ox is 92% on 1 liter. HEENT: Facial cellulitis is improved significantly with diminished swelling and diminished erythema, diminished tenderness. Tongue is moist. NECK: Supple. LUNGS: Clear with a few scattered crackles. CARDIOVASCULAR: Irregular rhythm and rate. EXTREMITIES: Without edema. DIAGNOSTIC DATA: Chest x-ray done last night showed chronic changes, no evidence of CHF. LABORATORY DATA: However, his BNP is 4890, creatinine is 1.4 and his BUN has normalized. Urine culture is negative and blood cultures negative. PLAN: Get an echocardiogram and give him a small dose of Lasix and will check his weight. DOMINGO REDMAN DO DR: KRISHNA/rodolfo JOB#: [id number] / [id number]
[2017-02-25 05:09] VITALS: BP 112/68
[2017-02-25] MEDS: PIPERACILLIN/TAZOBACTAM 4.5 GM in IV NORMAL SALINE 50ML 50 ML IV SCH (05:59)
[2017-02-25 06:44] LABS: BASO # 0.1 x10^3/uL (0.0-0.2); BASO % 1 % (0-3); EOS # 0.3 x10^3/uL (0.0-0.7); EOS % 7 % (0-3); HEMATOCRIT 38.5 % (39.0-53.0); HEMOGLOBIN 13.1 g/dL (13.0-17.5); LYMPH # 1.2 x10^3/uL (1.0-4.8); LYMPH % 25 % (24-48); MEAN CORPUSCULAR HEMOGLOBIN 33 pg (25-35); MEAN CORPUSCULAR HGB CONC 34 g/dL (31-37); MEAN CORPUSCULAR VOLUME 96 fL (79-100); MONO # 0.5 x10^3/uL (0.0-1.1); MONO % 11 % (0-9); NEUT # 2.8 x10^3uL (1.8-7.7); NEUT % 57 % (31-73); PLATELET COUNT 138 x10^3/uL (140-400); RED BLOOD COUNT 4.02 x10^6/uL (4.30-5.70); RED CELL DISTRIBUTION WIDTH 15.9 % (11.5-14.5)
[2017-02-25 06:53] LABS: ALBUMIN 2.9 g/dL (3.4-5.0); ALBUMIN/GLOBULIN RATIO 0.9 (1.0-1.7); CALCIUM 8.7 mg/dL (8.5-10.1); CREATININE 1.2 mg/dL (0.7-1.3); GFR 58.1; MAGNESIUM 1.8 mg/dL (1.8-2.4); POTASSIUM 3.9 mmol/L (3.5-5.1); TOTAL BILIRUBIN 0.8 mg/dL (0.2-1.0); TOTAL PROTEIN 6.2 g/dL (6.4-8.2)
[2017-02-25] MEDS: VANCOMYCIN PER PHARMACY MC PRN (07:17)
--- NOTE | 2017-02-25 07:17 | NUR ---
Pharmacy Vancomycin Dosing Note S:Consulted to monitor and dose vancomycin started 02/22/17. O:ALFREDO SHAH is a 82 year old M with Cellulitis . Height: 5 feet, 8 inches Weight: 83.486076 kg [place] Body Weight: 68.40 Adjusted Body Weight: 74.32 Dosing Weight: Actual Other Antibiotics: ZOSYN 4.5GRAM Q8HRS LABS: Last BUN: 24 Last Creatinine: 1.2 Creatinine Clearance: 50.7 Last WBC: 5.0 Last Platelets: 138 Drug Levels: Last Trough level: 16.3 on 02/24/17 at 1700 Last dose given 02/23/17 at 1700 Vancomycin Dosing: Loading Dose: 2000 mg x1 Dosing Weight: Actual Target Trough: 10-20 A: Based on yesterday's trough of 16.3, we will continue the same dosage. P: 1. Continue Vancomycin 1500 mg IV q24h 2. Follow up Trough level in 5-7 days. 3. Pharmacy will continue to monitor, follow and adjust therapy as needed. MARISA DALAL [facility] 02/25/17 0735
[2017-02-25] MEDS ORDERED: FUROSEMIDE 20 MG/2 ML VIAL IVP ONE (07:30)
[2017-02-25] MEDS ORDERED: AMOX1TAB61 PO (07:32)
[2017-02-25] MEDS: CETIRIZINE HCL 10 MG TABLET PO SCH (08:30)
[2017-02-25] MEDS: FUROSEMIDE 40 MG TABLET PO SCH (08:31)
[2017-02-25] MEDS: VITAMIN E. 400 UNIT CAPSULE. PO SCH (08:31)
[2017-02-25] MEDS: POTASSIUM CHLORIDE 10 MEQ TABLET.ER. PO SCH (08:32)
[2017-02-25] MEDS: OMEGA-3 FATTY ACIDS/FISH OIL 1,000 MG CAPSULE. PO SCH (08:33)
[2017-02-25] MEDS: CALCIUM CARB/VIT D3 500/200 TABLET PO SCH (08:34)
[2017-02-25] MEDS: METOPROLOL SUCC 24HR ER 50 MG TAB.ER.24H. PO SCH (08:35)
[2017-02-25 08:58] VITALS: BP 137/80
--- NOTE | 2017-02-25 10:03 | NUR ---
Pharmacy Warfarin Dosing Note S:Pharmacy consulted to assist with anticoagulation therapy started 02/22/17 with target INR: 2 -3 O:ALFREDO SHAH is a 82 year old M with Atrial Fibrillation LABS: Last INR: 2.3 Last HGB: 13.1 Last HCT: 38.5 Last PLT: 138 Last dose of 1 mg given on 02/23/17 at 1600 Previous Regimen: 1MG/ 1.5MG DAILY ALTERNATING Vitamin K given: N Drug Interaction Changes: Same Interacting Drug Ongoing Drug Interactions: A:INR Within desired Range. Continue patient's home dose of 1mg alt w/1.5mg. P: Warfarin dose: Continue home dose of warfarin 1.5mg alternating with 1mg daily. Bridge Therapy: None Next INR due as directed. Pharmacy anticoagulation service will continue to follow. MARISA DALAL [facility] 02/25/17 [id number]
[2017-02-25 11:15] VITALS: BP 110/67
--- NOTE | 2017-02-25 11:47 | NUR ---
Discharge: Teaching verbal and written. Patient and patients verbalized understanding. Reviewed medication, follow-up, diet, weight, wound care, ect. Prescription sent to [facility] by physician. Portable oxygen tank provided by sleep care sent home with patient. IV removed without compilations, catheter tip in-tact. Patient assisted off of unit via wheelchair accompanied by and nurse. All belongings with patient.
--- NOTE | 2017-02-25 12:28 | PDOC3 ---
Discharge Summary Visit Information Date of Admission: Feb 22, 2017 Date of Discharge: Feb 25, 2017 Final Diagnosis : 02/24/2017 CURRENT PROBLEMS: 1. Periorbital cellulitis. 2. Facial cellulitis. 3. Status post lesion removal of left lower lid. 4. Chronic kidney disease stage 3. 5. Chronic lower extremity swelling and weeping. 6. Long-term use of anticoagulants. 7. Mild protein malnutrition. 8. Mild hypoxia.-PULMONARY HYPERTENSION Problems: Brief Hospital Course Allergies Allergies Coded Allergies Type Severity Reaction Last Updated Verified adhesive tape Allergy Severe Rash 08/23/15 Yes amiodarone Allergy Mild 02/22/17 Yes Vital Signs Vital Signs Date Time Temp Pulse Resp B/P (MAP) Pulse Ox O2 Delivery O2 Flow Rate FiO2 02/25/17 11:15 97.8 61 14 110/67 (81) 97 Nasal Cannula 1.0 Lab Results Laboratory Tests Test 02/24/17 05:45 02/24/17 17:05 02/25/17 06:27 White Blood Count 5.1 x10^3/uL (4.0-11.0) 5.0 x10^3/uL (4.0-11.0) Red Blood Count 4.07 x10^6/uL (4.30-5.70) 4.02 x10^6/uL (4.30-5.70) Hemoglobin 13.4 g/dL (13.0-17.5) 13.1 g/dL (13.0-17.5) Hematocrit 38.7 % (39.0-53.0) 38.5 % (39.0-53.0) Mean Corpuscular Volume 95 fL (79-100) 96 fL (79-100) Mean Corpuscular Hemoglobin 33 pg (25-35) 33 pg (25-35) Mean Corpuscular Hemoglobin Concent 35 g/dL (31-37) 34 g/dL (31-37) Red Cell Distribution Width 15.3 % (11.5-14.5) 15.9 % (11.5-14.5) Platelet Count 133 x10^3/uL (140-400) 138 x10^3/uL (140-400) Neutrophils (%) (Auto) 62 % (31-73) 57 % (31-73) Lymphocytes (%) (Auto) 20 % (24-48) 25 % (24-48) Monocytes (%) (Auto) 10 % (0-9) 11 % (0-9) Eosinophils (%) (Auto) 7 % (0-3) 7 % (0-3) Basophils (%) (Auto) 1 % (0-3) 1 % (0-3) Neutrophils # (Auto) 3.1 x10^3uL (1.8-7.7) 2.8 x10^3uL (1.8-7.7) Lymphocytes # (Auto) 1.0 x10^3/uL (1.0-4.8) 1.2 x10^3/uL (1.0-4.8) Monocytes # (Auto) 0.5 x10^3/uL (0.0-1.1) 0.5 x10^3/uL (0.0-1.1) Eosinophils # (Auto) 0.4 x10^3/uL (0.0-0.7) 0.3 x10^3/uL (0.0-0.7) Basophils # (Auto) 0.1 x10^3/uL (0.0-0.2) 0.1 x10^3/uL (0.0-0.2) Prothrombin Time 22.0 SEC (9.4-11.4) 23.3 SEC (9.4-11.4) Prothromb Time International Ratio 2.2 (0.9-1.1) 2.3 (0.9-1.1) Sodium Level 140 mmol/L (136-145) 141 mmol/L (136-145) Potassium Level 3.7 mmol/L (3.5-5.1) 3.9 mmol/L (3.5-5.1) Chloride Level 105 mmol/L (98-107) 107 mmol/L (98-107) Carbon Dioxide Level 31 mmol/L (21-32) 31 mmol/L (21-32) Anion Gap 4 (6-14) 3 (6-14) Blood Urea Nitrogen 25 mg/dL (8-26) 24 mg/dL (8-26) Creatinine 1.4 mg/dL (0.7-1.3) 1.2 mg/dL (0.7-1.3) Estimated GFR (Cockcroft-Gault) 48.6 58.1 BUN/Creatinine Ratio 18 (6-20) 20 (6-20) Glucose Level 99 mg/dL (70-99) 92 mg/dL (70-99) Calcium Level 8.7 mg/dL (8.5-10.1) 8.7 mg/dL (8.5-10.1) Magnesium Level 1.8 mg/dL (1.8-2.4) 1.8 mg/dL (1.8-2.4) Total Bilirubin 1.1 mg/dL (0.2-1.0) 0.8 mg/dL (0.2-1.0) Aspartate Amino Transf (AST/SGOT) 38 U/L (15-37) 39 U/L (15-37) Alanine Aminotransferase (ALT/SGPT) 24 U/L (16-63) 26 U/L (16-63) Alkaline Phosphatase 137 U/L (46-116) 144 U/L (46-116) IH-Qtu-B-Type Natriuretic Peptide 4890 pg/mL (0-449) Total Protein 6.6 g/dL (6.4-8.2) 6.2 g/dL (6.4-8.2) Albumin 2.9 g/dL (3.4-5.0) 2.9 g/dL (3.4-5.0) Albumin/Globulin Ratio 0.8 (1.0-1.7) 0.9 (1.0-1.7) Vancomycin Level Trough 16.3 mcg/mL (10.0-20.0) Vancomycin Last Dose Date 02/23/17 Vancomycin Last Dose Time 1700 Brief Hospital Course Mr. Lopez is a 82 old MALE WHO WAS ADMITTED FROM DR. BARILLAS'S OFFICE WITH PERIORBITAL CELLULITIS AND FACILAL, CELLULITIS . HE HAD HAD A LESION REMOVED ON HIS CHEEK AND LEFTLOWER LID, THE AREA BECAME INFECTED AND HE FAILED OUTPATIENT TREATMENT. HE WAS ADMITTED AND RESPONDLY VERY WELL TO IV ZOSYN AND VANCOMYCIN. THE AREA OF CELLULITIS WAS MARKEDLY IMPROVED AT THE TIME OF DISCHARGE. HE WAS NOTED TO BE A LITTLE DYSPNEIC AND A ECHO WAS DONE SHOWING A PA PRESSURE OF 50. I INFORMED HIM OF THOSE RESULTS. HE FAILED HIS 6 MINUTE WALK AND WAS SENT HOME ON OXYGEN AND TO SEE DR. BARILLAS FOR FURTHER EVALUATION. . HE WAS DISCHARGED ON ORAL AUGMENTIN AND TO SEE HIS PCP WITHIN THE WEEK. HE RECIEVED A SMALL DOSE OF IV LASIX DUE TO THE INCREASE IN FLUIDS HE RECEIVED IN THE HOSPITAL. Discharge Information Condition at Discharge: Improved Disposition/Orders: D/C to Home w/ HH Dischare Medications Current Medications Vancomycin HCl (Vanco Per Pharmacy) 1 each PRN DAILY PRN MC SEE COMMENTS Last administered on 02/25/17 07:17; Start 02/22/17 at 14:15; Stop 02/25/17 at 11:50 ; Status DC Piperacillin Sod/ Tazobactam Sod 4.5 gm/Sodium Chloride 50 ml @ 100 mls/hr Q8HRS IV Last administered on 02/25/17 05:59; Start 02/22/17 at 16:00; Stop at 11:50; Status DC Ondansetron HCl (Zofran Odt) 4 mg PRN Q8HRS PRN PO NAUSEA/VOMITING; Start 02/22 at 14:30; Stop 02/25/17 at 11:50; Status DC Acetaminophen (Tylenol) 650 mg PRN Q6HRS PRN PO PAIN / TEMP; Start 02/22/17 at 14:30; Stop 02/25/17 at 11:50; Status DC Acetaminophen/ Hydrocodone Bitart (Lortab 5/325) 1 tab PRN Q6HRS PRN PO PAIN; Start 02/22/17 at 14:30; Stop 02/25/17 at 11:50; Status DC Vancomycin HCl 2 gm/Sodium Chloride 500 ml @ 250 mls/hr 1X ONCE IV Last administered on 02/22/17 16:53; Start 02/22/17 at 15:00; Stop 02/22/17 at 17:07 ; Status DC Info (FLU VACCINE per PROTOCOL) 1 ea PRN 1X PRN MC PER PROTOCOL; Start at 21:00; Stop 02/24/17 at 03:03; Status DC Aspirin (Aspirin Enteric Coated) 81 mg HS PO Last administered on 02/24/17 20: 28; Start 02/22/17 at 21:00; Stop 02/25/17 at 11:50; Status DC Calcium/Vitamin D (Oscal D 500mg/ 200uts) 1 tab DAILY PO Last administered on 08:34; Start 02/23/17 at 09:00; Stop 02/25/17 at 11:50; Status DC Fenofibrate (Tricor) 145 mg HS PO Last administered on 02/24/17 20:28; Start 02/22/17 at 21:00; Stop 02/25/17 at 11:50; Status DC Furosemide (Lasix) 40 mg DAILY PO Last administered on 02/25/17 08:31; Start 02/23/17 at 09:00; Stop 02/25/17 at 11:50; Status DC Warfarin Sodium (Coumadin) 1 mg QODAY@1600 PO Last administered on 02/24/17 16 :19; Start 02/22/17 at 16:45; Stop 02/25/17 at 11:50; Status DC Warfarin Sodium (Coumadin) 1.5 mg QODAY@1600 PO Last administered on 02/23/17 16:52; Start 02/23/17 at 16:00; Stop 02/25/17 at 11:50; Status DC Non-Formulary Medication 1,000 mg DAILY PO ; Start 02/23/17 at 09:00; Stop 02/23 at 09:00; Status DC Cetirizine HCl (ZyrTEC) 10 mg DAILY PO Last administered on 02/25/17 08:30; Start 02/23/17 at 09:00; Stop 02/25/17 at 11:50; Status DC Metoprolol Succinate (Toprol Xl) 200 mg DAILY PO Last administered on 08:35; Start 02/23/17 at 09:00; Stop 02/25/17 at 11:50; Status DC Fish Oil (Fish Oil) 2,000 mg DAILY PO Last administered on 02/25/17 08:33; Start 02/23/17 at 09:00; Stop 02/25/17 at 11:50; Status DC Potassium Chloride (Klor-Con) 10 meq DAILYWBKFT PO Last administered on 08:32; Start 02/23/17 at 08:00; Stop 02/25/17 at 11:51; Status DC Tamsulosin HCl (Flomax) 0.4 mg QHS PO Last administered on 02/24/17 20:28; Start 02/22/17 at 21:00; Stop 02/25/17 at 11:51; Status DC Losartan Potassium (Cozaar) 100 mg DAILY PO Last administered on 02/24/17 08: 23; Start 02/23/17 at 09:00; Stop 02/25/17 at 11:51; Status DC Vitamin E 400 unit DAILY PO Last administered on 02/25/17 08:31; Start at 09:00; Stop 02/25/17 at 11:51; Status DC Sodium Chloride 250 ml @ As Directed STK-MED ONCE .ROUTE Last administered on 02/22/17 16:54; Start 02/22/17 at 16:32; Stop 02/22/17 at 16:33; Status DC Vancomycin HCl 1.5 gm/Sodium Chloride 500 ml @ 250 mls/hr Q24H IV Last administered on 02/24/17 18:18; Start 02/23/17 at 17:00; Stop 02/25/17 at 11:51 ; Status DC Vancomycin HCl 1 each 1X ONCE MC Last administered on 02/24/17 16:30; Start 02/24/17 at 16:30; Stop 02/24/17 at 16:31; Status DC Warfarin Sodium (Coumadin Per Pharmacy) 1 each PRN DAILY PRN MC SEE COMMENTS Last administered on 02/25/17 10:02; Start 02/23/17 at 14:15; Stop 02/25/17 at 11:51; Status DC Info (FLU VACCINE per PROTOCOL) 1 ea PRN 1X PRN MC PER PROTOCOL; Start at 09:00; Status UNV Influenza Virus Vaccine Quadrival (Fluarix Quad 3069-6045 Syringe) 0.5 ml ONCE ONCE VAX IM Last administered on 02/25/17 08:49; Start 02/24/17 at 09:00; Stop 02/24/17 at 09:01; Status DC Furosemide (Lasix) 10 mg 1X ONCE IVP Last administered on 02/25/17 08:29; Start 02/25/17 at 07:30; Stop 02/25/17 at 07:31; Status DC Active Scripts Active Augmentin 875-125 Tablet (Amoxicillin/Potassium Clav) 1 Each Tablet 1 Tab PO BID Reported Coumadin (Warfarin Sodium) 1 Mg Tablet 1.5 Tab PO DAILY 1.5 MG DUE 02/23/17 Coumadin (Warfarin Sodium) 1 Mg Tablet 1 Tab PO DAILY 1 MG DUE 02/22/17 Potassium Chloride 10 Meq Capsule.er 1 Cap PO DAILY LAST DOSE GIVEN: DATE: TODAY TIME: AM NEXT DOSE DUE: DATE: TOMORROW TIME: AM Vitamin E (Vitamin E Acetate) 400 Unit Capsule 400 Unit PO DAILY NEXT DOSE DUE: DATE: RESTART TODAY TIME: WHEN YOU GET HOME NEXT DOSE DUE: DATE: RESTART TODAY TIME: WHEN YOU GET HOME Fenofibrate (Fenofibrate Nanocrystallized) 145 Mg Tablet 1 Tab PO HS LAST DOSE GIVEN: DATE: YESTERDAY TIME: AT BEDTIME NEXT DOSE DUE: DATE: TODAY TIME: AT BEDTIME Calcium 500 + Vit D 200 Tablet (Calcium Carbonate/Vitamin D3) 1 Each Tablet 1 Each PO DAILY LAST DOSE GIVEN: DATE: TODAY TIME: AM NEXT DOSE DUE: DATE: ORROW TIME: AM Loratadine 10 Mg Tablet 1 Tab PO DAILY LAST DOSE GIVEN: DATE: TODAY TIME: AM NEXT DOSE DUE: DATE: ORROW TIME: AM Diovan (Valsartan) 320 Mg Tablet 320 Mg PO DAILY LAST DOSE GIVEN: DATE: TODAY TIME: AM NEXT DOSE DUE: DATE: TOMORROW TIME: AM Aspir 81 (Aspirin) 81 Mg Tablet.dr 81 Mg PO HS LAST DOSE GIVEN: DATE: TODAY TIME: AM NEXT DOSE DUE: DATE: TOMORROW TIME: AM Flax Seed Oil (Flaxseed Oil) 1,000 Mg Capsule 1,000 Mg PO DAILY NEXT DOSE DUE: DATE: RESTART TODAY TIME: WHEN YOU GET HOME NEXT DOSE DUE: DATE: RESTART TODAY TIME: WHEN YOU GET HOME Fish Oil Softgel ([place]-3 Fatty Acids/Fish Oil) 1 Each Capsule 2 Each PO DAILY LAST DOSE GIVEN: DATE: TODAY TIME: AM NEXT DOSE DUE: DATE: TODAY TIME: PM Rapaflo (Silodosin) 8 Mg Capsule 8 Mg PO HS LAST DOSE GIVEN: DATE: YESTER TIME: AT BEDTIME NEXT DOSE DUE: DATE: TODAY TIME: AT BEDTIME Furosemide 20 Mg Tablet 40 Mg PO DAILY LAST DOSE GIVEN: DATE: Today TIME: AM NEXT DOSE DUE: DATE: Tomorrow TIME: AM TIME: PM THEN TAKE 40 MG ONCE DAILY STARTING Wednesday Metoprolol Succinate ( Xl ) (Metoprolol Succinate) 200 Mg Tab.er.24h 200 Mg PO DAILY LAST DOSE GIVEN: DATE: YESTERDAY TIME: AT BEDTIME NEXT DOSE DUE: DATE: TODAY TIME: AT BEDTIME Patient Instructions Patient Instuctions SEE DR. BARILLAS WITHIN THE WEEK. TAKE YOUR ANTIBIOTIS UNTIL DONE. SEE DR ROME FOR SUTURE REMOVAL. DOMINGO REDMAN DO Feb 25, 2017 12:28
== END 2017-02-25 11:46 | disposition home health service (06) | DRG 603 ==
LOC: 1 SOUTH 13:36
PROVIDERS: ADMIT Family Medicine; ATTEND Family Medicine
DX: L03.213 Periorbital cellulitis (principal); E11.22 Type 2 diabetes mellitus with diabetic chronic kidney disease; I27.2 Other secondary pulmonary hypertension; E44.1 Mild protein-calorie malnutrition; I13.0 Hypertensive heart and chronic kidney disease with heart failure and stage 1 through stage 4 chronic kidney disease, or unspecified chronic kidney disease; I50.9 Heart failure, unspecified; Z79.4 Long term (current) use of insulin; I48.91 Unspecified atrial fibrillation; L03.211 Cellulitis of face; G47.30 Sleep apnea, unspecified; N18.3 Chronic kidney disease, stage 3 (moderate); N40.0 Benign prostatic hyperplasia without lower urinary tract symptoms; G89.29 Other chronic pain; R58 Hemorrhage, not elsewhere classified; R09.02 Hypoxemia; M79.89 Other specified soft tissue disorders; Z79.01 Long term (current) use of anticoagulants; Z79.899 Other long term (current) drug therapy; Z82.49 Family history of ischemic heart disease and other diseases of the circulatory system; Z87.01 Personal history of pneumonia (recurrent); Z83.3 Family history of diabetes mellitus; Z68.27 Body mass index [BMI] 27.0-27.9, adult; Z88.8 Allergy status to other drugs, medicaments and biological substances; I25.2 Old myocardial infarction; Z91.048 Other nonmedicinal substance allergy status; Z98.49 Cataract extraction status, unspecified eye; T45.515A Adverse effect of anticoagulants, initial encounter; Y92.89 Other specified places as the place of occurrence of the external cause
CPT/HCPCS: 36415; 71010; 80053; 80202; 81001; 83605; 83735; 83880; 85025; 85610; 87040; 87086; 90686; 93306; 94620; J2543; J3370; J7040; J7050

== ENCOUNTER 2017-02-26 16:38 | Inpatient (IN) | payer BC, MEDICARE ==
[~2017-02-26] VITALS: Ht 172.7 cm; Wt 88.0 kg
[~2017-02-26 16:38] MED LIST changes: +WARF1TAB74 PO
--- NOTE | 2017-02-26 17:06 | PHYS DOC ---
General Chief Complaint: ALTERED MENTAL STATUS Stated Complaint: ALTERED MENTAL STATUS Time Seen by MD: 16:43 Source: patient, family Exam Limitations: no limitations Problems: (DUSTIN GODOY DO) Time Seen by MD: 18:14 Problems: (SALVADOR STILL MD) History of Present Illness Initial Comments Patient is an 82-year-old male brought to the ED by his spouse for increased confusion change of mental status. Patient underwent an abscess removal in his left eyelid on February [address] Carrasco. During his recovery from the procedure she developed left sided face redness and tenderness and on February [address] Carrasco by phone. At that time Dr. Carrasco tried to call in a prescription for cephalexin however there were technical issues related to the recording device at the pharmacy and ultimately Dr. Carrasco directed that the patient come to the ED to get a cephalexin prescription. On that day I had the pleasure of seeing the patient in the emergency department. His vital signs were stable he was afebrile with tachycardia and had no other systemic signs of illness however I felt further evaluation was needed. The patient was resistant however his convinced him to stay long enough for CT evaluation to rule out orbital cellulitis. CT report revealed periorbital cellulitis changes only and the patient was discharged home on clindamycin. On February 22, the next day the patient was direct admitted as the redness and tenderness had increased through the night and the patient was agreeable for admission with IV and bacterial therapy. He responded quickly to intravenous vancomycin and Zosyn and the swelling and redness have nearly resolved completely. He had an episode of dyspnea while in the hospital and an echocardiogram was performed and the patient was ultimately discharged home yesterday on Augmentin. He had home O2 delivered today and his home health nurse delivered home care today as well. The patient states that he fell asleep in the recliner this afternoon and awoke with lower abdominal pressure and severe need to urinate. He says he had more difficulty than normal with some unsteady gait trying to get to the bathroom and while trying to get to the restroom encounters his home health nurse who he did not recognize. He did not make it all the way to the restroom but did get symptomatic relief of the pressure and urinary urge by emptying his bladder. He denies any dysuria or flank pain but says his urine has been dark the last few days he does take Lasix. Patient's spouse states that since he's been home all he does is sleep. She says he's been more confused than normal and denies a prior history of dementia. She also feels he's hearing voices as at one point she walked into the room and he said "by whatever the kids or selling on the TV." She looked around and saw no children and says that the TV was on a home building show. The patient does admit that something is different because he is aware that he did not recognize making his home health nurse. He denies any focal neurologic deficits or chest pain and complains that the nasal cannula is difficult to get used to. ED vitals: 98.6, 69, 96, 111/72 Timing/Duration: intermittent (today) Severity: moderate Modifying Factors: improves with other Associated Symptoms: malaise, other (DUSTIN GODOY DO) Allergies: Coded Allergies: adhesive tape (Verified Allergy, Severe, Rash, 08/23/15) amiodarone (Verified Allergy, Mild, 02/22/17) HAIR FALLS OUT Past Medical History Medical History: congestive heart failure, hypertension, other (atrial fibrillation, BPH, chronic pain, diabetes, chronic lower extremity swelling PVCs wound care, chronic anticoagulation, periorbital cellulitis) Surgical History: other (left eyelid abscess removal, cataracts, hernia, right ankle fusion) (DUSTIN GODOY DO) Social History Smoker: non-smoker Alcohol: none Drugs: none (DUSTIN GODOY DO) Review of Systems Constitutional: denies chills, denies diaphoresis, denies fever, malaise EENTM: denies eye pain, denies tearing, denies ear pain, denies nose pain, denies throat pain, denies throat swelling, denies mouth pain Respiratory: see HPI, denies cough, orthopnea, denies wheezing Cardiovascular: denies chest pain, denies palpitations, denies syncope Gastrointestinal: denies abdominal pain, diarrhea, denies nausea, denies vomiting Genitourinary: see HPI Musculoskeletal: denies back pain, denies joint swelling, denies neck pain Psychiatric/Neurological: see HPI, denies headache, denies numbness, denies paresthesia, denies pre-existing deficit Hematologic/Lymphatic: see HPI (DUSTIN GODOY DO) Physical Exam General Appearance: WD/WN, no apparent distress Eyes: bilateral eye normal inspection, bilateral eye PERRL, bilateral eye EOMI Ear, Nose, Throat: hearing grossly normal, normal ENT inspection (dry mucus membranes), normal pharynx Neck: non-tender, supple Respiratory: chest non-tender, normal breath sounds, no respiratory distress Cardiovascular: normal peripheral pulses, irregularly irregular Gastrointestinal: normal bowel sounds, non tender, soft Back: no CVA tenderness, no vertebral tenderness Extremities: non-tender, other (LE wrapped b/l per wound care) 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 See his documentation for results/disposition. (DUSTIN GODOY DO) Orders, Labs, Meds Elijah was found to have signs and symptoms of acute on chronic congestive heart failure. He has moderate swelling proximal to his lower leg wrappings, crackles in his lungs and his had a new requirement of oxygen over the past 3 days. He was admitted in stable condition after receiving Lasix 40 mg IV and Augmentin 875/125mg tab 1 for treatment of his cellulitis. (SALVADOR STILL MD) DUSTIN GODOY DO Feb 26, 2017 17:06 SALVADOR STILL MD Feb 26, 2017 22:16
[2017-02-26] MEDS ORDERED: IV NORMAL SALINE 1,000ML 500 ML IV SCH (17:15)
--- NOTE | 2017-02-26 17:21 | EKG ---
[address] [address] Test Date: 2017-02-26 Test Time: 17:00:49 Pat Name: ALFREDO SHAH Department: Room: Gender: M [employer]: : [id number] Requested By: DUSTIN GODOY Order Number: [id number] Reading MD: Measurements Intervals [place] Rate: 59 P: CA: QRS: -77 QRSD: 144 T: 6 QT: 384 QTc: 384 Interpretive Statements IRREGULAR RHYTHM, NO P-WAVE FOUND ABNORMAL LEFT AXIS DEVIATION NON SPECIFIC INTRAVENTRICULAR BLOCK RVH WITH REPOLARIZATION ABNORMALITY QRS(T) CONTOUR ABNORMALITY CONSIDER ANTEROSEPTAL MYOCARDIAL DAMAGE CONSISTENT WITH INFERIOR INFARCT AGE UNDETERMINED ABNORMAL ECG RI6.01 No previous ECG available for comparison
[2017-02-26 17:46] LABS: BASO % 0 % (0-3); EOS # 0.3 x10^3/uL (0.0-0.7); EOS % 5 % (0-3); HEMATOCRIT 40.6 % (39.0-53.0); HEMOGLOBIN 13.8 g/dL (13.0-17.5); LYMPH # 1.3 x10^3/uL (1.0-4.8); LYMPH % 21 % (24-48); MEAN CORPUSCULAR HEMOGLOBIN 33 pg (25-35); MEAN CORPUSCULAR HGB CONC 34 g/dL (31-37); MEAN CORPUSCULAR VOLUME 97 fL (79-100); MONO # 0.7 x10^3/uL (0.0-1.1); MONO % 11 % (0-9); NEUT # 3.7 x10^3uL (1.8-7.7); NEUT % 62 % (31-73); PLATELET COUNT 202 x10^3/uL (140-400); RED CELL DISTRIBUTION WIDTH 16.4 % (11.5-14.5)
--- NOTE | 2017-02-26 17:58 | RAD ---
CT HEAD without CONTRAST Clinical indications: ALTERED MENTAL STATUS COMPARISON: November 14, 2016. Technique: Noncontrast axial cross sectional scanning of the head was performed. PQRS compliance Statement One or more of the following individualized dose reduction techniques were utilized for this study: 1. Automated exposure control 2. Adjustment of the mA and/or kV according to patient size 3. Use of iterative reconstruction technique Findings: No acute intracranial hemorrhage or midline shift or mass-effect or hydrocephalus or extra-axial fluid collection is seen. Again seen is moderate bilateral periventricular white matter hypodensity consistent chronic small vessel ischemic disease. This is stable. No new focal hypodense area or sulci effacement is seen to indicate an acute infarct or edema radiographically. No skull fracture or pneumocephalus is seen. No opacification of the mastoid sinuses or the paranasal sinuses is seen. The maxillary sinuses are not completely seen in this study. Impression: No new intracranial abnormality is seen. Moderate chronic small vessel ischemic disease of the white matter. Electronically signed by: eKnny Alvares MD (02/26/2017 5:55 PM) [facility]
[2017-02-26 18:39] LABS: BILIRUBIN,URINE NEG (NEG); CLARITY,URINE CLEAR; COLOR,URINE YELLOW; GLUCOSE,URINE NEG (NEG)
[2017-02-26 18:40] LABS: BACTERIA,URINE 0 /HPF (0-FEW); HYALINE CASTS, URINE OCC /HPF; NITRITE,URINE NEG (NEG); RBC,URINE 0 /HPF (0-2); SQUAMOUS EPITHELIAL CELL,UR OCC /LPF; UROBILINOGEN,URINE 0.2 mg/dL (0.2 mg/dL); WBC,URINE OCC /HPF (0-4)
[2017-02-26 18:49] LABS: CALCIUM 9.3 mg/dL (8.5-10.1); CREATININE 1.2 mg/dL (0.7-1.3); DIRECT BILIRUBIN 0.4 mg/dL (0.0-0.2); GFR 58.1; MAGNESIUM 1.8 mg/dL (1.8-2.4); TOTAL BILIRUBIN 0.7 mg/dL (0.2-1.0); TOTAL PROTEIN 6.7 g/dL (6.4-8.2)
[2017-02-26] MEDS ORDERED: FUROSEMIDE 40 MG/4 ML VIAL IVP ONE (20:15)
[2017-02-26] MEDS ORDERED: AMOXICILLIN/K CLAV 875/125MG TABLET. PO ONE (20:45)
--- NOTE | 2017-02-26 21:02 | NUR ---
The patient, ALFREDO SHAH, 82 y/o, M admitted by JESSICA BARILLAS MD, was given written information regarding hospital policies, unit procedures and contact persons.
[2017-02-26] MEDS: TAMSULOSIN 0.4 MG CAP.ER.24H. PO SCH (22:00)
[2017-02-26 22:11] VITALS: BP 125/67
[2017-02-27 05:02] VITALS: BP 136/81
[2017-02-27 06:05] LABS: ALBUMIN 2.9 g/dL (3.4-5.0); ALBUMIN/GLOBULIN RATIO 0.8 (1.0-1.7); CALCIUM 8.9 mg/dL (8.5-10.1); CREATININE 1.3 mg/dL (0.7-1.3); POTASSIUM 3.8 mmol/L (3.5-5.1); TOTAL BILIRUBIN 0.6 mg/dL (0.2-1.0); TOTAL PROTEIN 6.4 g/dL (6.4-8.2)
[2017-02-27] MEDS: VITAMIN E. 400 UNIT CAPSULE. PO SCH (08:26)
[2017-02-27] MEDS: OMEGA-3 FATTY ACIDS/FISH OIL 1,000 MG CAPSULE. PO SCH (08:26)
[2017-02-27] MEDS: CETIRIZINE HCL 10 MG TABLET PO SCH (08:27)
[2017-02-27] MEDS: AMOXICILLIN/K CLAV 875/125MG TABLET. PO SCH ×2 (08:27→20:44)
[2017-02-27] MEDS: FUROSEMIDE 40 MG TABLET PO SCH (08:27)
[2017-02-27] MEDS: CALCIUM CARB/VIT D3 500/200 TABLET PO SCH (08:27)
[2017-02-27] MEDS: LOSARTAN 50 MG TABLET. PO SCH (08:27)
[2017-02-27] MEDS: METOPROLOL SUCC 24HR ER 50 MG TAB.ER.24H. PO SCH (08:28)
[2017-02-27] MEDS: POTASSIUM CHLORIDE 10 MEQ TABLET.ER. PO SCH (08:28)
[2017-02-27] MEDS ORDERED: NON FORMULARY ITEM (Flaxseed Oil (Flax Seed Oil) 1,000 MG) PO SCH (09:00)
--- NOTE | 2017-02-27 09:22 | RAD ---
AP portable chest radiograph 02/26/2017 Clinical History: Shortness of breath. An AP portable erect digital radiograph of the chest was obtained. Comparison study is dated 02/24/2017. The cardiac silhouette is mildly enlarged. The thoracic aorta is tortuous. Atherosclerotic calcification of the thoracic aorta is seen. Mild prominence of the pulmonary vasculature is seen suggesting mild CHF. No area of consolidation is noted. No pneumothorax or pleural effusion is seen. The osseous structures are unchanged. Impression: Findings suggesting mild CHF.
[2017-02-27 11:20] VITALS: BP 99/66
--- NOTE | 2017-02-27 15:14 | PDOC1 ---
History of Present Illness Reason for Visit: AMS History of Present Illness Pt was just discharged from [facility] after being treated for facial cellulitis. That has improved. He was seen by HH yesterday and had just woken up. He was confused and disoriented, so he was sent back to the ER for evaluation and admission. Pt states that he did not wear the O2 he was given at discharge. Denies any new symptoms. No new SOA, no increase in weight, no increase in swelling, no fever. He did have a large BM this morning, denies regular watery diarrhea. Denies fever or n/v. No abd pain. No chest pain or palpitations. States he is feeling "ok." His reports that he was very weak the last day in the hospital. Chief Complaint: ALTERED MENTAL STATUS Allergies: Coded Allergies: adhesive tape (Verified Allergy, Severe, Rash, 08/23/15) amiodarone (Verified Allergy, Mild, 02/22/17) HAIR FALLS OUT Past Medical History Cardiac: AFIB, CAD, HTN, hyperipidemia Past Surgical History: No pertinent history Family History: No pertinent hx Past Social History Smoke: No Alcohol: none Drugs: None Lives: with Family Review of Systems Review Of Systems Fourteen system , review of systems has been reviewed. See HPI for pertinent positives and negative responses, other tony all other systems are negative, non pertinent or non contributory Allergies: Coded Allergies: adhesive tape (Verified Allergy, Severe, Rash, 08/23/15) amiodarone (Verified Allergy, Mild, 02/22/17) HAIR FALLS OUT Medications Current Medications Sodium Chloride 500 ml @ 1,000 mls/hr Q30M IV Last administered on 02/26/17 17:15; Start 02/26/17 at 17:15; Stop 02/26/17 at 17:44; Status DC Furosemide (Lasix) 40 mg 1X ONCE IVP Last administered on 02/26/17 20:15; Start 02/26/17 at 20:15; Stop 02/26/17 at 20:17; Status DC Amoxicillin/ Clavulanate Potassium (Augmentin 875/ 125mg) 1 tab 1X ONCE PO Last administered on 02/26/17 20:45; Start 02/26/17 at 20:45; Stop 02/26/17 at 20:46; Status DC Amoxicillin/ Clavulanate Potassium (Augmentin 875/ 125mg) 1 tab BID PO Last administered on 02/27/17 08:27; Start 02/27/17 at 09:00 Aspirin (Aspirin Enteric Coated) 81 mg HS PO ; Start 02/27/17 at 22:00 Calcium/Vitamin D (Oscal D 500mg/ 200uts) 1 tab DAILY PO Last administered on 08:27; Start 02/27/17 at 09:00 Fenofibrate (Tricor) 145 mg HS PO ; Start 02/27/17 at 23:00 Furosemide (Lasix) 40 mg DAILY PO Last administered on 02/27/17 08:27; Start 02/27/17 at 09:00 Warfarin Sodium (Coumadin) 1 mg QODAY@1600 PO ; Start 02/28/17 at 16:00 Warfarin Sodium (Coumadin) 1.5 mg QODAY@1600 PO ; Start 02/27/17 at 16:00 Non-Formulary Medication 1,000 mg DAILY PO ; Start 02/27/17 at 09:00; Stop 02/27 at 09:00; Status DC Cetirizine HCl (ZyrTEC) 10 mg DAILY PO Last administered on 02/27/17 08:27; Start 02/27/17 at 09:00 Metoprolol Succinate (Toprol Xl) 200 mg DAILY PO Last administered on 08:28; Start 02/27/17 at 09:00 Fish Oil (Fish Oil) 2,000 mg DAILY PO Last administered on 02/27/17 08:26; Start 02/27/17 at 09:00 Potassium Chloride (Klor-Con) 10 meq DAILYWBKFT PO Last administered on 08:28; Start 02/27/17 at 08:00 Tamsulosin HCl (Flomax) 0.4 mg QHS PO ; Start 02/26/17 at 22:00 Losartan Potassium (Cozaar) 100 mg DAILY PO Last administered on 02/27/17 08: 27; Start 02/27/17 at 09:00 Vitamin E 400 unit DAILY PO Last administered on 02/27/17 08:26; Start at 09:00 Warfarin Sodium (Coumadin Per Physician) 1 each PRN DAILY PRN MC SEE COMMENTS; Start 02/27/17 at 07:30 Active Scripts Active Augmentin 875-125 Tablet (Amoxicillin/Potassium Clav) 1 Each Tablet 1 Tab PO BID Reported Coumadin (Warfarin Sodium) 1 Mg Tablet 1.5 Tab PO DAILY 1.5 MG DUE 02/23/17 Coumadin (Warfarin Sodium) 1 Mg Tablet 1 Tab PO DAILY 1 MG DUE 02/22/17 Potassium Chloride 10 Meq Capsule.er 1 Cap PO DAILY LAST DOSE GIVEN: DATE: TODAY TIME: AM NEXT DOSE DUE: DATE: TOMORROW TIME: AM Vitamin E (Vitamin E Acetate) 400 Unit Capsule 400 Unit PO DAILY NEXT DOSE DUE: DATE: RESTART TODAY TIME: WHEN YOU GET HOME NEXT DOSE DUE: DATE: RESTART TODAY TIME: WHEN YOU GET HOME Fenofibrate (Fenofibrate Nanocrystallized) 145 Mg Tablet 1 Tab PO HS LAST DOSE GIVEN: DATE: YESTERDAY TIME: AT BEDTIME NEXT DOSE DUE: DATE: TODAY TIME: AT BEDTIME Calcium 500 + Vit D 200 Tablet (Calcium Carbonate/Vitamin D3) 1 Each Tablet 1 Each PO DAILY LAST DOSE GIVEN: DATE: TODAY TIME: AM NEXT DOSE DUE: DATE: TOMORROW TIME: AM Loratadine 10 Mg Tablet 1 Tab PO DAILY LAST DOSE GIVEN: DATE: TODAY TIME: AM NEXT DOSE DUE: DATE: TOMORROW TIME: AM Diovan (Valsartan) 320 Mg Tablet 320 Mg PO DAILY LAST DOSE GIVEN: DATE: TODAY TIME: AM NEXT DOSE DUE: DATE: TOMORROW TIME: AM Aspir 81 (Aspirin) 81 Mg Tablet.dr 81 Mg PO HS LAST DOSE GIVEN: DATE: TIME: AM NEXT DOSE DUE: DATE: TOMORROW TIME: AM Flax Seed Oil (Flaxseed Oil) 1,000 Mg Capsule 1,000 Mg PO DAILY NEXT DOSE DUE: DATE: RESTART TODAY TIME: WHEN YOU GET HOME NEXT DOSE DUE: DATE: RESTART TODAY TIME: WHEN YOU GET HOME Fish Oil Softgel (Swain-3 Fatty Acids/Fish Oil) 1 Each Capsule 2 Each PO DAILY LAST DOSE GIVEN: DATE: TODAY TIME: AM NEXT DOSE DUE: DATE: TODAY TIME: PM Rapaflo (Silodosin) 8 Mg Capsule 8 Mg PO HS LAST DOSE GIVEN: DATE: YESTERDAY TIME: AT BEDTIME NEXT DOSE DUE: DATE: TODAY TIME: AT BEDTIME Furosemide 20 Mg Tablet 40 Mg PO DAILY LAST DOSE GIVEN: DATE: Today TIME: AM NEXT DOSE DUE: DATE: Tomorrow TIME: AM TIME: PM THEN TAKE 40 MG ONCE DAILY STARTING Wednesday Metoprolol Succinate ( Xl ) (Metoprolol Succinate) 200 Mg Tab.er.24h 200 Mg PO DAILY LAST DOSE GIVEN: DATE: YESTERDAY TIME: AT BEDTIME NEXT DOSE DUE: DATE: TODAY TIME: AT BEDTIME Exam Vital Signs Vital Signs Date Time Temp Pulse Resp B/P (MAP) Pulse Ox O2 Delivery O2 Flow Rate FiO2 02/27/17 11:20 98.3 81 16 99/66 (77) 95 Nasal Cannula 2.0 General Appearance: Alert, Oriented X3, Cooperative, No acute distress HEENT: Atraumatic, PERRLA, EOMI, Mucous membr. moist/pink, Other (Facial cellulitis dramatically improved. Neck supple, no JVD, no LAD) Respiratory: Normal air movement, Other (Bibasilar crackles, normal resp effort ) Heart: Regular rate, Normal S1, Normal S2, No murmurs Abdominal: Normal bowel sounds, Soft, No tenderness, No hepatospenomegaly, No masses Extremities: Other (Legs wrapped w/ UNNA boots, but appear markedly less swollen than the last time I saw him. ) Skin: No rashes (Right forearm w/ maculopapular excoriated rash) Psych/Mental Status: Mental status NL, Mood NL Assessment/Plan Assessment/Plan 1. Acute on chronic diastolic heart failure: Echo done a few days ago was unremarkable except for elevated PA pressure. Pt has findings of CHF on CXR and BNP is elevated. He will be given one more dose IV Lasix, and hopefully d/ c in AM. Check CXR in AM as well. 2. Facial cellulitis: Cont Augmentin. 3. Diarrhea: Check C Dif, though unlikely given normal WBC, neg abd pain, non- watery stools. 4. Chronic anticoagulation: INR 2.5 yesterday, repeat in AM. 5. DVT proph: Pt on warfarin. COURSE Allergies Coded Allergies Type Severity Reaction Last Updated Verified adhesive tape Allergy Severe Rash 08/23/15 Yes amiodarone Allergy Mild 02/22/17 Yes Laboratory Tests Test 02/26/17 17:05 02/26/17 18:00 02/26/17 18:15 02/27/17 05:37 White Blood Count 6.0 x10^3/uL (4.0-11.0) Red Blood Count 4.20 x10^6/uL (4.30-5.70) Hemoglobin 13.8 g/dL (13.0-17.5) Hematocrit 40.6 % (39.0-53.0) Mean Corpuscular Volume 97 fL (79-100) Mean Corpuscular Hemoglobin 33 pg (25-35) Mean Corpuscular Hemoglobin Concent 34 g/dL (31-37) Red Cell Distribution Width 16.4 % (11.5-14.5) Platelet Count 202 x10^3/uL (140-400) Neutrophils (%) (Auto) 62 % (31-73) Lymphocytes (%) (Auto) 21 % (24-48) Monocytes (%) (Auto) 11 % (0-9) Eosinophils (%) (Auto) 5 % (0-3) Basophils (%) (Auto) 0 % (0-3) Neutrophils # (Auto) 3.7 x10^3uL (1.8-7.7) Lymphocytes # (Auto) 1.3 x10^3/uL (1.0-4.8) Monocytes # (Auto) 0.7 x10^3/uL (0.0-1.1) Eosinophils # (Auto) 0.3 x10^3/uL (0.0-0.7) Basophils # (Auto) 0.0 x10^3/uL (0.0-0.2) Urine Collection Type Unknown Urine Color Yellow Urine Clarity Clear Urine pH 5.0 Urine Specific Gilman 1.010 Urine Protein Neg (NEG-TRACE) Urine Glucose (UA) Neg mg/dL (NEG) Urine Ketones (Stick) Neg mg/dL (NEG) Urine Blood Neg (NEG) Urine Nitrite Neg (NEG) Urine Bilirubin Neg (NEG) Urine Urobilinogen Dipstick 0.2 mg/dL (0.2 mg/dL) Urine Leukocyte Esterase Small (NEG) Urine RBC 0 /HPF (0-2) Urine WBC Occ /HPF (0-4) Urine Squamous Epithelial Cells Occ /LPF Urine Bacteria 0 /HPF (0-FEW) Urine Hyaline Casts Occ /HPF Urine Mucus Slight /LPF Prothrombin Time 25.0 SEC (9.4-11.4) Prothromb Time International Ratio 2.5 (0.9-1.1) Activated Partial Thromboplast Time 28 SEC (23-33) Sodium Level 142 mmol/L (136-145) 146 mmol/L (136-145) Potassium Level 4.0 mmol/L (3.5-5.1) 3.8 mmol/L (3.5-5.1) Chloride Level 106 mmol/L (98-107) 105 mmol/L (98-107) Carbon Dioxide Level 34 mmol/L (21-32) 37 mmol/L (21-32) Anion Gap 2 (6-14) 4 (6-14) Blood Urea Nitrogen 24 mg/dL (8-26) 26 mg/dL (8-26) Creatinine 1.2 mg/dL (0.7-1.3) 1.3 mg/dL (0.7-1.3) Estimated GFR (Cockcroft-Gault) 58.1 53.0 Glucose Level 93 mg/dL (70-99) 95 mg/dL (70-99) Lactic Acid Level 0.7 mmol/L (0.4-2.0) Calcium Level 9.3 mg/dL (8.5-10.1) 8.9 mg/dL (8.5-10.1) Magnesium Level 1.8 mg/dL (1.8-2.4) Total Bilirubin 0.7 mg/dL (0.2-1.0) 0.6 mg/dL (0.2-1.0) Direct Bilirubin 0.4 mg/dL (0.0-0.2) Aspartate Amino Transf (AST/SGOT) 38 U/L (15-37) 36 U/L (15-37) Alanine Aminotransferase (ALT/SGPT) 28 U/L (16-63) 23 U/L (16-63) Alkaline Phosphatase 164 U/L (46-116) 172 U/L (46-116) Ammonia 34 mcmol/L (11-34) Troponin I Quantitative 0.035 ng/mL (0-0.055) GK-Jeu-L-Type Natriuretic Peptide 5508 pg/mL (0-449) Total Protein 6.7 g/dL (6.4-8.2) 6.4 g/dL (6.4-8.2) Albumin 3.0 g/dL (3.4-5.0) 2.9 g/dL (3.4-5.0) BUN/Creatinine Ratio 20 (6-20) Albumin/Globulin Ratio 0.8 (1.0-1.7) Current Medications Medications (Trade) Dose Ordered Sig/Ita Route PRN Reason Start Time Stop Time Status Last Admin Dose Admin Sodium Chloride 500 ml @ 1,000 mls/hr Q30M IV 02/26/17 17:15 02/26/17 17:44 DC 02/26/17 17:15 Furosemide (Lasix) 40 mg 1X ONCE IVP 02/26/17 20:15 02/26/17 20:17 DC 02/26/17 20:15 Amoxicillin/ Clavulanate Potassium (Augmentin 875/ 125mg) 1 tab 1X ONCE PO 02/26/17 20:45 02/26/17 20:46 DC 02/26/17 20:45 Amoxicillin/ Clavulanate Potassium (Augmentin 875/ 125mg) 1 tab BID PO 02/27/17 09:00 02/27/17 08:27 Aspirin (Aspirin Enteric Coated) 81 mg HS PO 02/27/17 22:00 Calcium/Vitamin D (Oscal D 500mg/ 200uts) 1 tab DAILY PO 02/27/17 09:00 02/27/17 08:27 Fenofibrate (Tricor) 145 mg HS PO 02/27/17 23:00 Furosemide (Lasix) 40 mg DAILY PO 02/27/17 09:00 02/27/17 08:27 Warfarin Sodium (Coumadin) 1 mg QODAY@1600 PO 02/28/17 16:00 Warfarin Sodium (Coumadin) 1.5 mg QODAY@1600 PO 02/27/17 16:00 Non-Formulary Medication 1,000 mg DAILY PO 02/27/17 09:00 02/27/17 09:00 DC Cetirizine HCl (ZyrTEC) 10 mg DAILY PO 02/27/17 09:00 02/27/17 08:27 Metoprolol Succinate (Toprol Xl) 200 mg DAILY PO 02/27/17 09:00 02/27/17 08:28 Fish Oil (Fish Oil) 2,000 mg DAILY PO 02/27/17 09:00 02/27/17 08:26 Potassium Chloride (Klor-Con) 10 meq DAILYWBKFT PO 02/27/17 08:00 02/27/17 08:28 Tamsulosin HCl (Flomax) 0.4 mg QHS PO 02/26/17 22:00 Losartan Potassium (Cozaar) 100 mg DAILY PO 02/27/17 09:00 02/27/17 08:27 Vitamin E 400 unit DAILY PO 02/27/17 09:00 02/27/17 08:26 Warfarin Sodium (Coumadin Per Physician) 1 each PRN DAILY PRN MC SEE COMMENTS 02/27/17 07:30 I & O 02/28/17 00:00 Intake Total 300 ml Balance 300 ml Vital Signs Date Time Temp Pulse Resp B/P (MAP) Pulse Ox O2 Delivery O2 Flow Rate FiO2 02/27/17 11:20 98.3 81 16 99/66 (77) [address] head: No acute intracranial abnormality CXR: AP portable chest radiograph 02/26/2017 Clinical History: Shortness of breath. An AP portable erect digital radiograph of the chest was obtained. Comparison study is dated 02/24/2017. The cardiac silhouette is mildly enlarged. The thoracic aorta is tortuous. Atherosclerotic calcification of the thoracic aorta is seen. Mild prominence of the pulmonary vasculature is seen suggesting mild CHF. No area of consolidation is noted. No pneumothorax or pleural effusion is seen. The osseous structures are unchanged. Impression: Findings suggesting mild CHF. JESSICA BARILLAS MD Feb 27, 2017 15:14
[2017-02-27] MEDS ORDERED: WARFARIN 1 MG TABLET. PO SCH (16:00)
[2017-02-27] MEDS ORDERED: FUROSEMIDE 20 MG/2 ML VIAL IVP ONE (16:15)
[2017-02-27 17:37] VITALS: BP 95/53
[2017-02-27 19:38] VITALS: BP 107/63
[2017-02-27] MEDS: TAMSULOSIN 0.4 MG CAP.ER.24H. PO SCH (20:44)
[2017-02-27] MEDS: ASPIRIN ENTERIC COATED 81 MG TABLET.DR. PO SCH (20:44)
[2017-02-27] MEDS: FENOFIBRATE NANOCRYSTALLIZED 145 MG TABLET PO SCH (22:43)
[2017-02-28 00:12] VITALS: BP 107/67
[2017-02-28 05:45] VITALS: BP 95/54
[2017-02-28 07:15] LABS: CREATININE 1.2 mg/dL (0.7-1.3); GFR 58.1
[2017-02-28] MEDS: POTASSIUM CHLORIDE 10 MEQ TABLET.ER. PO SCH (08:11)
[2017-02-28] MEDS: OMEGA-3 FATTY ACIDS/FISH OIL 1,000 MG CAPSULE. PO SCH (08:58)
[2017-02-28] MEDS: FUROSEMIDE 40 MG TABLET PO SCH (09:00)
[2017-02-28] MEDS: CALCIUM CARB/VIT D3 500/200 TABLET PO SCH (09:02)
[2017-02-28] MEDS: VITAMIN E. 400 UNIT CAPSULE. PO SCH (09:02)
[2017-02-28] MEDS: CETIRIZINE HCL 10 MG TABLET PO SCH (09:02)
[2017-02-28] MEDS: AMOXICILLIN/K CLAV 875/125MG TABLET. PO SCH ×2 (09:03→21:00)
[2017-02-28 11:00] VITALS: BP 103/46
--- NOTE | 2017-02-28 11:15 | RAD ---
PA and lateral chest radiographs 02/28/2017 Clinical history: CHF. PA and lateral digital radiographs of the chest were obtained. Comparison study is dated 02/26/2017. The cardiac silhouette is mildly enlarged. The thoracic aorta is tortuous. A atherosclerotic calcification of the thoracic aorta is seen. Improving congestive changes are seen involving both lungs. No pneumothorax or definite pleural effusion is noted. The osseous structures are unchanged. Impression: Improving CHF.
--- NOTE | 2017-02-28 12:44 | PDOC ---
PROGRESS NOTES Assessment 1. Acute on chronic diastolic heart failure: Echo done a few days ago was unremarkable except for elevated PA pressure. Pt's CXR looks better today, still requiring O2. BP on low side recently, BP meds and Lasix held this morning. I will continue to hold them today. Consult cardiology in AM, they saw him during last admission. 2. Facial cellulitis: Cont Augmentin, still improving. 3. Diarrhea: C Dif pending, pt in isolation. BM this morning was partially formed, more likely due to Abx than C Dif. 4. Chronic anticoagulation: INR 2.1. Continue warfarin. 5. DVT proph: Pt on warfarin. 6. Altered mental status: reports pt w/ confusion on waking, every time. We will do noc-ox tonight to r/o nocturnal hypoxemia. If negative, may need to look at medications and early dementia. 7. Generalized debility: Pt is nearly full assist at this point w/ transfers, pt's is only caregiver. I recommend evaluation for swing bed or SNF at discharge to improve ADL's prior to sending home. Problems: Plan of Care: see other orders Subjective Pt feeling ok. One BM this morning, no blood, was "partially formed." Denies fever, chest pain, headache, dizziness. Pt's reports he is confused every time he wakes up from sleeping. Not confused at other times, however. Also, pt is nearly max assist w/ transfers. Pt's does not see how she could care for him at home at this point. Objective Vital Signs Date Time Temp Pulse Resp B/P (MAP) Pulse Ox O2 Delivery O2 Flow Rate FiO2 02/28/17 11:00 97.9 92 14 103/46 (65) 94 Nasal Cannula 2.0 Abdomen: Soft, No tenderness, No hepatospenomegaly, No masses Heart: Regular rate, Normal S1, Normal S2, No murmurs Extremities: Normal pulses, Other (BLE wrapped, minimal edema) General: Alert, Oriented X3, Cooperative, No acute distress HEENT: Atraumatic, PERRLA, EOMI, Mucous membr. moist/pink, Other (Left cheek w / improving cellulitis) Lungs: Clear to auscultation, Normal air movement Neck: No JVD, No LAD Neuro: Normal speech, Normal tone, Cranial nerves 3-12 NL Psych/Mental Status: Mental status NL, Mood NL Skin: No breakdown Review of Relevant I have reviewed the following items constantin (where applicable) has been applied. Labs Laboratory Tests Test 02/26/17 17:05 02/26/17 18:00 02/26/17 18:15 02/27/17 05:37 White Blood Count 6.0 x10^3/uL (4.0-11.0) Red Blood Count 4.20 x10^6/uL (4.30-5.70) Hemoglobin 13.8 g/dL (13.0-17.5) Hematocrit 40.6 % (39.0-53.0) Mean Corpuscular Volume 97 fL (79-100) Mean Corpuscular Hemoglobin 33 pg (25-35) Mean Corpuscular Hemoglobin Concent 34 g/dL (31-37) Red Cell Distribution Width 16.4 % (11.5-14.5) Platelet Count 202 x10^3/uL (140-400) Neutrophils (%) (Auto) 62 % (31-73) Lymphocytes (%) (Auto) 21 % (24-48) Monocytes (%) (Auto) 11 % (0-9) Eosinophils (%) (Auto) 5 % (0-3) Basophils (%) (Auto) 0 % (0-3) Neutrophils # (Auto) 3.7 x10^3uL (1.8-7.7) Lymphocytes # (Auto) 1.3 x10^3/uL (1.0-4.8) Monocytes # (Auto) 0.7 x10^3/uL (0.0-1.1) Eosinophils # (Auto) 0.3 x10^3/uL (0.0-0.7) Basophils # (Auto) 0.0 x10^3/uL (0.0-0.2) Urine Collection Type Unknown Urine Color Yellow Urine Clarity Clear Urine pH 5.0 Urine Specific [place] 1.010 Urine Protein Neg (NEG-TRACE) Urine Glucose (UA) Neg mg/dL (NEG) Urine Ketones (Stick) Neg mg/dL (NEG) Urine Blood Neg (NEG) Urine Nitrite Neg (NEG) Urine Bilirubin Neg (NEG) Urine Urobilinogen Dipstick 0.2 mg/dL (0.2 mg/dL) Urine Leukocyte Esterase Small (NEG) Urine RBC 0 /HPF (0-2) Urine WBC Occ /HPF (0-4) Urine Squamous Epithelial Cells Occ /LPF Urine Bacteria 0 /HPF (0-FEW) Urine Hyaline Casts Occ /HPF Urine Mucus Slight /LPF Prothrombin Time 25.0 SEC (9.4-11.4) Prothromb Time International Ratio 2.5 (0.9-1.1) Activated Partial Thromboplast Time 28 SEC (23-33) Sodium Level 142 mmol/L (136-145) 146 mmol/L (136-145) Potassium Level 4.0 mmol/L (3.5-5.1) 3.8 mmol/L (3.5-5.1) Chloride Level 106 mmol/L (98-107) 105 mmol/L (98-107) Carbon Dioxide Level 34 mmol/L (21-32) 37 mmol/L (21-32) Anion Gap 2 (6-14) 4 (6-14) Blood Urea Nitrogen 24 mg/dL (8-26) 26 mg/dL (8-26) Creatinine 1.2 mg/dL (0.7-1.3) 1.3 mg/dL (0.7-1.3) Estimated GFR (Cockcroft-Gault) 58.1 53.0 Glucose Level 93 mg/dL (70-99) 95 mg/dL (70-99) Lactic Acid Level 0.7 mmol/L (0.4-2.0) Calcium Level 9.3 mg/dL (8.5-10.1) 8.9 mg/dL (8.5-10.1) Magnesium Level 1.8 mg/dL (1.8-2.4) Total Bilirubin 0.7 mg/dL (0.2-1.0) 0.6 mg/dL (0.2-1.0) Direct Bilirubin 0.4 mg/dL (0.0-0.2) Aspartate Amino Transf (AST/SGOT) 38 U/L (15-37) 36 U/L (15-37) Alanine Aminotransferase (ALT/SGPT) 28 U/L (16-63) 23 U/L (16-63) Alkaline Phosphatase 164 U/L (46-116) 172 U/L (46-116) Ammonia 34 mcmol/L (11-34) Troponin I Quantitative 0.035 ng/mL (0-0.055) IH-Pgx-M-Type Natriuretic Peptide 5508 pg/mL (0-449) Total Protein 6.7 g/dL (6.4-8.2) 6.4 g/dL (6.4-8.2) Albumin 3.0 g/dL (3.4-5.0) 2.9 g/dL (3.4-5.0) BUN/Creatinine Ratio 20 (6-20) Albumin/Globulin Ratio 0.8 (1.0-1.7) Test 02/28/17 06:13 Prothrombin Time 21.7 SEC (9.4-11.4) Prothromb Time International Ratio 2.1 (0.9-1.1) Sodium Level 143 mmol/L (136-145) Potassium Level 4.0 mmol/L (3.5-5.1) Chloride Level 104 mmol/L (98-107) Carbon Dioxide Level 37 mmol/L (21-32) Anion Gap 2 (6-14) Blood Urea Nitrogen 28 mg/dL (8-26) Creatinine 1.2 mg/dL (0.7-1.3) Estimated GFR (Cockcroft-Gault) 58.1 Glucose Level 83 mg/dL (70-99) Calcium Level 9.0 mg/dL (8.5-10.1) Microbiology 02/26/17 Blood Culture - Preliminary, Resulted NO GROWTH AFTER 1 DAY 02/26/17 Urine Culture - Preliminary, Resulted 02/26/17 Urine Culture Result 1 (ROSALIO) - Preliminary, Resulted Medications Current Medications Sodium Chloride 500 ml @ 1,000 mls/hr Q30M IV Last administered on 02/26/17 17:15; Start 02/26/17 at 17:15; Stop 02/26/17 at 17:44; Status DC Furosemide (Lasix) 40 mg 1X ONCE IVP Last administered on 02/26/17 20:15; Start 02/26/17 at 20:15; Stop 02/26/17 at 20:17; Status DC Amoxicillin/ Clavulanate Potassium (Augmentin 875/ 125mg) 1 tab 1X ONCE PO Last administered on 02/26/17 20:45; Start 02/26/17 at 20:45; Stop 02/26/17 at 20:46; Status DC Amoxicillin/ Clavulanate Potassium (Augmentin 875/ 125mg) 1 tab BID PO Last administered on 02/28/17 09:03; Start 02/27/17 at 09:00 Aspirin (Aspirin Enteric Coated) 81 mg HS PO Last administered on 02/27/17 20: 44; Start 02/27/17 at 22:00 Calcium/Vitamin D (Oscal D 500mg/ 200uts) 1 tab DAILY PO Last administered on 09:02; Start 02/27/17 at 09:00 Fenofibrate (Tricor) 145 mg HS PO Last administered on 02/27/17 22:43; Start 02/27/17 at 23:00 Furosemide (Lasix) 40 mg DAILY PO Last administered on 02/27/17 08:27; Start 02/27/17 at 09:00 Warfarin Sodium (Coumadin) 1 mg QODAY@1600 PO ; Start 02/28/17 at 16:00 Warfarin Sodium (Coumadin) 1.5 mg QODAY@1600 PO Last administered on 02/27/17 17:29; Start 02/27/17 at 16:00 Non-Formulary Medication 1,000 mg DAILY PO ; Start 02/27/17 at 09:00; Stop 02/27 at 09:00; Status DC Cetirizine HCl (ZyrTEC) 10 mg DAILY PO Last administered on 02/28/17 09:02; Start 02/27/17 at 09:00 Metoprolol Succinate (Toprol Xl) 200 mg DAILY PO Last administered on 08:28; Start 02/27/17 at 09:00 Fish Oil (Fish Oil) 2,000 mg DAILY PO Last administered on 02/28/17 08:58; Start 02/27/17 at 09:00 Potassium Chloride (Klor-Con) 10 meq DAILYWBKFT PO Last administered on 08:11; Start 02/27/17 at 08:00 Tamsulosin HCl (Flomax) 0.4 mg QHS PO Last administered on 02/27/17 20:44; Start 02/26/17 at 22:00 Losartan Potassium (Cozaar) 100 mg DAILY PO Last administered on 02/27/17 08: 27; Start 02/27/17 at 09:00 Vitamin E 400 unit DAILY PO Last administered on 02/28/17 09:02; Start at 09:00 Warfarin Sodium (Coumadin Per Physician) 1 each PRN DAILY PRN MC SEE COMMENTS; Start 02/27/17 at 07:30 Furosemide (Lasix) 20 mg 1X ONCE IVP Last administered on 02/27/17 17:29; Start 02/27/17 at 16:15; Stop 02/27/17 at 16:16; Status DC Active Scripts Active Augmentin 875125 Tablet (Amoxicillin/Potassium Clav) 1 Each Tablet 1 Tab PO BID Reported Coumadin (Warfarin Sodium) 1 Mg Tablet 1.5 Tab PO DAILY 1.5 MG DUE 02/23/17 Coumadin (Warfarin Sodium) 1 Mg Tablet 1 Tab PO DAILY 1 MG DUE 02/22/17 Potassium Chloride 10 Meq Capsule.er 1 Cap PO DAILY LAST DOSE GIVEN: DATE: TODAY TIME: AM NEXT DOSE DUE: DATE: TOMORROW TIME: AM Vitamin E (Vitamin E Acetate) 400 Unit Capsule 400 Unit PO DAILY NEXT DOSE DUE: DATE: RESTART TODAY TIME: WHEN YOU GET HOME NEXT DOSE DUE: DATE: RESTART TODAY TIME: WHEN YOU GET HOME Fenofibrate (Fenofibrate Nanocrystallized) 145 Mg Tablet 1 Tab PO HS LAST DOSE GIVEN: DATE: YESTER TIME: AT BEDTIME NEXT DOSE DUE: DATE: TODAY TIME: AT BEDTIME Calcium 500 + Vit D 200 Tablet (Calcium Carbonate/Vitamin D3) 1 Each Tablet 1 Each PO DAILY LAST DOSE GIVEN: DATE: TODAY TIME: AM NEXT DOSE DUE: DATE: TOMORROW TIME: AM Loratadine 10 Mg Tablet 1 Tab PO DAILY LAST DOSE GIVEN: DATE: TODAY TIME: AM NEXT DOSE DUE: DATE: TOMORROW TIME: AM Diovan (Valsartan) 320 Mg Tablet 320 Mg PO DAILY LAST DOSE GIVEN: DATE: TODAY TIME: AM NEXT DOSE DUE: DATE: TOMORROW TIME: AM Aspir 81 (Aspirin) 81 Mg Tablet.dr 81 Mg PO HS LAST DOSE GIVEN: DATE: TODAY TIME: AM NEXT DOSE DUE: DATE: TOMORROW TIME: AM Flax Seed Oil (Flaxseed Oil) 1,000 Mg Capsule 1,000 Mg PO DAILY NEXT DOSE DUE: DATE: RESTART TODAY TIME: WHEN YOU GET HOME NEXT DOSE DUE: DATE: RESTART TODAY TIME: WHEN YOU GET HOME Fish Oil Softgel (Street-3 Fatty Acids/Fish Oil) 1 Each Capsule 2 Each PO DAILY LAST DOSE GIVEN: DATE: TODAY TIME: AM NEXT DOSE DUE: DATE: TODAY TIME: PM Rapaflo (Silodosin) 8 Mg Capsule 8 Mg PO HS LAST DOSE GIVEN: DATE: YESTERDAY TIME: AT BEDTIME NEXT DOSE DUE: DATE: TODAY TIME: AT BEDTIME Furosemide 20 Mg Tablet 40 Mg PO DAILY LAST DOSE GIVEN: DATE: Today TIME: AM NEXT DOSE DUE: DATE: Tomorrow TIME: AM TIME: PM THEN TAKE 40 MG ONCE DAILY STARTING Wednesday Metoprolol Succinate ( Xl ) (Metoprolol Succinate) 200 Mg Tab.er.24h 200 Mg PO DAILY LAST DOSE GIVEN: DATE: YESTERDAY TIME: AT BEDTIME NEXT DOSE DUE: DATE: TODAY TIME: AT BEDTIME Vitals/I & O Vital Sign - Last 24 Hours 02/27/17 02/27/17 02/27/17 02/28/17 17:37 19:38 20:02 00:12 Temp 98.2 Pulse 72 53 81 Resp 16 18 B/P (MAP) 95/53 (67) 107/63 (78) 107/67 (80) Pulse Ox 98 96 95 O2 Delivery Nasal Cannula Nasal Cannula O2 Flow Rate 2.0 2.0 02/28/17 02/28/17 02/28/17 05:45 08:00 11:00 Temp 97.9 Pulse 75 92 Resp 18 14 B/P (MAP) 95/54 (68) 103/46 (65) Pulse Ox 96 94 O2 Delivery Nasal Cannula Nasal Cannula O2 Flow Rate 2.0 2.0 Images PA and lateral chest radiographs 02/28/2017 Clinical history: CHF. PA and lateral digital radiographs of the chest were obtained. Comparison study is dated 02/26/2017. The cardiac silhouette is mildly enlarged. The thoracic aorta is tortuous. A atherosclerotic calcification of the thoracic aorta is seen. Improving congestive changes are seen involving both lungs. No pneumothorax or definite pleural effusion is noted. The osseous structures are unchanged. Impression: Improving CHF. JESSICA BARILLAS MD Feb 28, 2017 12:44
[2017-02-28] MEDS: METOPROLOL SUCC 24HR ER 50 MG TAB.ER.24H. PO SCH (14:58)
[2017-02-28] MEDS: LOSARTAN 50 MG TABLET. PO SCH (14:59)
[2017-02-28 15:00] VITALS: BP 183/62
[2017-02-28] MEDS ORDERED: WARFARIN 1 MG TABLET. PO SCH (16:00)
[2017-02-28 19:00] VITALS: BP 121/66
[2017-02-28] MEDS: FENOFIBRATE NANOCRYSTALLIZED 145 MG TABLET PO SCH (21:00)
[2017-02-28] MEDS: TAMSULOSIN 0.4 MG CAP.ER.24H. PO SCH (21:00)
[2017-02-28] MEDS: ASPIRIN ENTERIC COATED 81 MG TABLET.DR. PO SCH (21:00)
[2017-02-28 23:10] VITALS: BP 123/70
[2017-03-01 04:50] VITALS: BP 107/61
--- NOTE | 2017-03-01 07:58 | NUR ---
Consult: Spoke with Sydney with the [facility] cardio answering service. Dr. Johnson paged for routine consult.
[2017-03-01] MEDS: CALCIUM CARB/VIT D3 500/200 TABLET PO SCH (08:48)
[2017-03-01] MEDS: OMEGA-3 FATTY ACIDS/FISH OIL 1,000 MG CAPSULE. PO SCH (08:48)
[2017-03-01] MEDS: VITAMIN E. 400 UNIT CAPSULE. PO SCH (08:48)
[2017-03-01] MEDS: FUROSEMIDE 40 MG TABLET PO SCH (08:48)
[2017-03-01] MEDS: CETIRIZINE HCL 10 MG TABLET PO SCH (08:49)
[2017-03-01] MEDS: AMOXICILLIN/K CLAV 875/125MG TABLET. PO SCH (08:49)
[2017-03-01] MEDS: POTASSIUM CHLORIDE 10 MEQ TABLET.ER. PO SCH (08:54)
[2017-03-01 08:55] VITALS: BP 105/60
--- NOTE | 2017-03-01 09:06 | PDOC2 ---
CONSULT Date of Admission DATE: 03/01/17 TIME: 09:02 Reason for Consult: chf Problem List Problems Medical Problems: (1) CHF (congestive heart failure) Status: Acute History of Present Illness Mr Lopez is an 82 year old male with history of chronic atrial fibrillation, CAD, hypertension who presents with complaints of confusion. He was recently discharged from the hospital after an admission and treatment for cellulitis. After being home a day his home health nurse visited and found him to be confused so he was sent back for evaluation. He was found to be in mild heart failure and consult was called. Today he reports his breathing is improved. He does report some chronic orthopnea and normally sleeps at 45 degrees. He reports chronic lower extremity swelling. He denies chest discomfort. He denies significant palpitations. He denies lightheadedness or syncope. He previously followed with a forging press operator [place] [facility] [place] has seen no one since that physician left the practice. Past Medical History Echo 02/24/17 The left ventricle is normal size. Left ventricle systolic function is normal. The Ejection Fraction is 55-60%. Mild aortic stenosis with a calculated aortic valve area is 1.5 cm2 with maximum pressure gradient of 17 mmHg and mean pressure gradient of 9 mmHg. Doppler and Color Flow revealed no significant aortic regurgitation. Doppler and Color Flow revealed mild mitral regurgitation. Doppler and Color Flow revealed mild tricuspid regurgitation. The PA pressure was estimated at 50 mmHg. PAST MEDICAL HISTORY: 1. Atrial fibrillation, permanent. 2. Hypertension. 3. Dyslipidemia. 4. Mild coronary artery disease per the patient according to an old heart catheterization. 5. diastolic heart failure 6. recent admission for facial cellulitis 7. CKD stage III 8. protein malnutrition 9. diabetes mellitus Past Surgical History Cataract Removal, Hernia Repair, Other (Right ankle fusion, Broken right elbow, growth removed from left thigh.) Family History FAMILY HISTORY: Noncontributory. Social History SOCIAL HISTORY: The patient denies any alcohol, tobacco or illicit drug use. He is retired and he lives at home with his . Current Medications Current Medications Sodium Chloride 500 ml @ 1,000 mls/hr Q30M IV Last administered on 02/26/17 17:15; Start 02/26/17 at 17:15; Stop 02/26/17 at 17:44; Status DC Furosemide (Lasix) 40 mg 1X ONCE IVP Last administered on 02/26/17 20:15; Start 02/26/17 at 20:15; Stop 02/26/17 at 20:17; Status DC Amoxicillin/ Clavulanate Potassium (Augmentin 875/ 125mg) 1 tab 1X ONCE PO Last administered on 02/26/17 20:45; Start 02/26/17 at 20:45; Stop 02/26/17 at 20:46; Status DC Amoxicillin/ Clavulanate Potassium (Augmentin 875/ 125mg) 1 tab BID PO Last administered on 03/01/17 08:49; Start 02/27/17 at 09:00 Aspirin (Aspirin Enteric Coated) 81 mg HS PO Last administered on 02/28/17 21: 00; Start 02/27/17 at 22:00 Calcium/Vitamin D (Oscal D 500mg/ 200uts) 1 tab DAILY PO Last administered on 08:48; Start 02/27/17 at 09:00 Fenofibrate (Tricor) 145 mg HS PO Last administered on 02/28/17 21:00; Start 02/27/17 at 23:00 Furosemide (Lasix) 40 mg DAILY PO Last administered on 03/01/17 08:48; Start 02/27/17 at 09:00 Warfarin Sodium (Coumadin) 1 mg QODAY@1600 PO Last administered on 02/28/17 16 :34; Start 02/28/17 at 16:00 Warfarin Sodium (Coumadin) 1.5 mg QODAY@1600 PO Last administered on 02/27/17 17:29; Start 02/27/17 at 16:00 Non-Formulary Medication 1,000 mg DAILY PO ; Start 02/27/17 at 09:00; Stop 02/27 at 09:00; Status DC Cetirizine HCl (ZyrTEC) 10 mg DAILY PO Last administered on 03/01/17 08:49; Start 02/27/17 at 09:00 Metoprolol Succinate (Toprol Xl) 200 mg DAILY PO Last administered on 14:58; Start 02/27/17 at 09:00 Fish Oil (Fish Oil) 2,000 mg DAILY PO Last administered on 03/01/17 08:48; Start 02/27/17 at 09:00 Potassium Chloride (Klor-Con) 10 meq DAILYWBKFT PO Last administered on 08:54; Start 02/27/17 at 08:00 Tamsulosin HCl (Flomax) 0.4 mg QHS PO Last administered on 02/28/17 21:00; Start 02/26/17 at 22:00 Losartan Potassium (Cozaar) 100 mg DAILY PO Last administered on 02/28/17 14: 59; Start 02/27/17 at 09:00 Vitamin E 400 unit DAILY PO Last administered on 03/01/17 08:48; Start at 09:00 Warfarin Sodium (Coumadin Per Physician) 1 each PRN DAILY PRN MC SEE COMMENTS; Start 02/27/17 at 07:30 Furosemide (Lasix) 20 mg 1X ONCE IVP Last administered on 02/27/17 17:29; Start 02/27/17 at 16:15; Stop 02/27/17 at 16:16; Status DC Active Scripts Active Augmentin 875-125 Tablet (Amoxicillin/Potassium Clav) 1 Each Tablet 1 Tab PO BID Reported Coumadin (Warfarin Sodium) 1 Mg Tablet 1.5 Tab PO DAILY 1.5 MG DUE 02/23/17 Coumadin (Warfarin Sodium) 1 Mg Tablet 1 Tab PO DAILY 1 MG DUE 02/22/17 Potassium Chloride 10 Meq Capsule.er 1 Cap PO DAILY LAST DOSE GIVEN: DATE: TODAY TIME: AM NEXT DOSE DUE: DATE: TOMORROW TIME: AM Vitamin E (Vitamin E Acetate) 400 Unit Capsule 400 Unit PO DAILY NEXT DOSE DUE: DATE: RESTART TODAY TIME: WHEN YOU GET HOME NEXT DOSE DUE: DATE: RESTART TODAY TIME: WHEN YOU GET HOME Fenofibrate (Fenofibrate Nanocrystallized) 145 Mg Tablet 1 Tab PO HS LAST DOSE GIVEN: DATE: YESTERDAY TIME: AT BEDTIME NEXT DOSE DUE: DATE: TODAY TIME: AT BEDTIME Calcium 500 + Vit D 200 Tablet (Calcium Carbonate/Vitamin D3) 1 Each Tablet 1 Each PO DAILY LAST DOSE GIVEN: DATE: TODAY TIME: AM NEXT DOSE DUE: DATE: TOMORROW TIME: AM Loratadine 10 Mg Tablet 1 Tab PO DAILY LAST DOSE GIVEN: DATE: TODAY TIME: AM NEXT DOSE DUE: DATE: TOMORROW TIME: AM Diovan (Valsartan) 320 Mg Tablet 320 Mg PO DAILY LAST DOSE GIVEN: DATE: TODAY TIME: AM NEXT DOSE DUE: DATE: TOMORROW TIME: AM Aspir 81 (Aspirin) 81 Mg Tablet.dr 81 Mg PO HS LAST DOSE GIVEN: DATE: TODAY TIME: AM NEXT DOSE DUE: DATE: TOMORROW TIME: AM Flax Seed Oil (Flaxseed Oil) 1,000 Mg Capsule 1,000 Mg PO DAILY NEXT DOSE DUE: DATE: RESTART TODAY TIME: WHEN YOU GET HOME NEXT DOSE DUE: DATE: RESTART TODAY TIME: WHEN YOU GET HOME Fish Oil Softgel ([place]-3 Fatty Acids/Fish Oil) 1 Each Capsule 2 Each PO DAILY LAST DOSE GIVEN: DATE: TODAY TIME: AM NEXT DOSE DUE: DATE: TODAY TIME: PM Rapaflo (Silodosin) 8 Mg Capsule 8 Mg PO HS LAST DOSE GIVEN: DATE: YESTER TIME: AT BEDTIME NEXT DOSE DUE: DATE: TODAY TIME: AT BEDTIME Furosemide 20 Mg Tablet 40 Mg PO DAILY LAST DOSE GIVEN: DATE: TIME: AM NEXT DOSE DUE: DATE: [place] TIME: AM TIME: PM THEN TAKE 40 MG ONCE DAILY STARTING Wednesday Metoprolol Succinate ( Xl ) (Metoprolol Succinate) 200 Mg Tab.er.24h 200 Mg PO DAILY LAST DOSE GIVEN: DATE: YESTERDAY TIME: AT BEDTIME NEXT DOSE DUE: DATE: TODAY TIME: AT BEDTIME Allergies: Coded Allergies: adhesive tape (Verified Allergy, Severe, Rash, 08/23/15) amiodarone (Verified Allergy, Mild, 02/22/17) HAIR FALLS OUT Review of System as per HPI General: Alert, Oriented X3, Cooperative, No acute distress HEENT: Atraumatic, EOMI, Mucous membr. moist/pink Lungs: Other (few left basilar crackles, otherwise clear) Heart: Normal S1, Normal S2, Other (IRR, no gallops, clicks or rubs, soft systolic murmur) Abdomen: Normal bowel sounds, Soft Extremities: Other (+edema, bilateral dressing dry and intact. right radial pulse palpable, left radial 2+, palpable bilateral DP pulses) Neuro: Normal speech, Strength at 5/5 X4 ext Psych/Mental Status: Mental status NL, Mood NL VITALS Vital Signs Date Time Temp Pulse Resp B/P (MAP) Pulse Ox O2 Delivery O2 Flow Rate FiO2 03/01/17 08:55 98.0 71 18 105/60 (75) 93 Nasal Cannula 2.0 Labs Laboratory Tests Test 02/27/17 16:00 02/28/17 06:13 03/01/17 08:21 Clostridium difficile Toxin (PCR) Negative (Negative) Prothrombin Time 21.7 SEC (9.4-11.4) Prothromb Time International Ratio 2.1 (0.9-1.1) Sodium Level 143 mmol/L (136-145) Potassium Level 4.0 mmol/L (3.5-5.1) Chloride Level 104 mmol/L (98-107) Carbon Dioxide Level 37 mmol/L (21-32) Anion Gap 2 (6-14) Blood Urea Nitrogen 28 mg/dL (8-26) Creatinine 1.2 mg/dL (0.7-1.3) Estimated GFR (Cockcroft-Gault) 58.1 Glucose Level 83 mg/dL (70-99) Calcium Level 9.0 mg/dL (8.5-10.1) Glucose (Fingerstick) 106 mg/dL (70-99) Images CXR - improving heart failure 02/28/17 Assessment/Plan 1. Acute on chronic diastolic heart failure - continue diuresis, repeat cxr 2. prob subclavian stenosis - await sono 3. chronic atrial fibrillation - rate controlled, on warfarin for stroke prophylaxis, INR therapeutic 4. hypertension - meds held yesterday until afternoon due to lower blood pressures. decrease doses (metoprolol am and losartan pm) and monitor. 5. PHTN - OP sleep study 6. CAD - mild by report. request cath report and last stress test [place] [facility] [place] 2:30 sam Mar [address] Lebron Problems: KRISTIE DAVIS APRN Mar 01, 2017 09:06
[2017-03-01 11:28] VITALS: BP 101/61
--- NOTE | 2017-03-01 14:17 | RAD ---
Examination: 2 views of the chest History: History of congestive heart failure Comparison: 02/08/2017 Findings: Low lung volumes and technique accentuates heart size and pulmonary vascularity. Mild prominent appearing bilateral interstitial lung markings likely mild congestive changes similar to prior exam. Mild left lung base airspace opacities likely atelectasis or infiltrates with trace pleural effusion. Impression 1. Unchanged congestive changes. 2. Mild left lung base airspace opacity likely atelectasis or infiltrate with trace left pleural effusion..
--- NOTE | 2017-03-01 14:29 | RAD ---
Examination: Ultrasound right upper extremity arterial duplex History: History of decreased pressure in the right arm Comparison: None available Technique: Grayscale, color Doppler 2-D, spectral waveform analysis of the right upper extremity arterial system was performed. Findings: The velocity in the right subclavian artery is 54 cm/s, axillary artery 49 cm/s, mid brachial artery 43 cm/s, radial artery 26 cm/s, ulnar artery 17 cm/s. No evidence of focal elevated velocities identified. Impression: Unremarkable visualized exam.
[2017-03-01] MEDS ORDERED: LOSARTAN 50 MG TABLET. PO SCH (21:00)
[2017-03-02] MEDS ORDERED: METOPROLOL SUCC 24HR ER 50 MG TAB.ER.24H. PO SCH (09:00)
== END 2017-03-01 15:13 | DRG 291 ==
LOC: EEVIPCON 16:38 → ER 16:38 → 1 SOUTH 20:45
PROVIDERS: ADMIT Family Medicine; ATTEND Family Medicine
DX: I13.0 Hypertensive heart and chronic kidney disease with heart failure and stage 1 through stage 4 chronic kidney disease, or unspecified chronic kidney disease (principal); I50.33 Acute on chronic diastolic (congestive) heart failure; E11.22 Type 2 diabetes mellitus with diabetic chronic kidney disease; I48.2 Chronic atrial fibrillation; L03.211 Cellulitis of face; N18.3 Chronic kidney disease, stage 3 (moderate); E78.5 Hyperlipidemia, unspecified; I25.10 Atherosclerotic heart disease of native coronary artery without angina pectoris; N40.0 Benign prostatic hyperplasia without lower urinary tract symptoms; G89.29 Other chronic pain; M79.89 Other specified soft tissue disorders; R19.7 Diarrhea, unspecified; Z88.8 Allergy status to other drugs, medicaments and biological substances; Z91.048 Other nonmedicinal substance allergy status; Z79.01 Long term (current) use of anticoagulants; Z98.61 Coronary angioplasty status; Z98.49 Cataract extraction status, unspecified eye
CPT/HCPCS: 36415; 70450; 71010; 71020; 80048; 80053; 80076; 81001; 82140; 82947; 83605; 83735; 83880; 84484; 85025; 85610; 85730; 87040; 87086; 87324; 93005; 93931; 94799; 96374; J1940; 99285-25; J7030

== ENCOUNTER → 2017-03-17 | Outpatient (CLI) | payer BC, MEDICARE ==
[2017-03-01 11:28] VITALS: BP 101/61
--- NOTE | 2017-03-17 10:18 | RAD ---
Indication abnormal liver function tests. Grayscale imaging was performed. The examination was targeted to the right upper quadrant. Examination is limited. There was a considerable amount of abdominal gas limiting visualization with ultrasound. Only the head and most proximal body of the pancreas were seen. Most of the body and tail were obscured. A gross abnormality is not seen in that portion of the pancreas which was visualized. Only a small amount of the IVC was visualized which appeared grossly normal. The gallbladder appeared unremarkable. No stones were seen. The common bile duct diameter of approximately 4 mm is normal. In the visualized liver no focal mass lesion was seen. Imaging of the right kidney appeared essentially unremarkable. An 11 mm cyst was noted associated with the kidney. Moderate right pleural effusion was noted during the exam IMPRESSION: Right pleural effusion. No abnormality seen in the right upper quadrant of the abdomen. Limited study secondary to gas. Right renal cyst
== END | disposition home or self-care (01) ==
LOC: US 08:42
PROVIDERS: ATTEND Family Medicine
DX: N28.1 Cyst of kidney, acquired (principal); J90 Pleural effusion, not elsewhere classified; R94.5 Abnormal results of liver function studies
CPT/HCPCS: 76705

== ENCOUNTER 2017-03-22 10:03 | Inpatient (IN) | payer BC, MEDICARE ==
[~2017-03-22] VITALS: Ht 172.7 cm; Wt 89.9 kg
[2017-03-22 11:42] VITALS: BP 143/67
--- NOTE | 2017-03-22 12:55 | RAD ---
Indication shortness of breath. Congestive heart failure. Frontal and lateral views of the chest were obtained. Comparison is made to an examination 03/01/2017. There is mild unchanged cardiomegaly. There are background changes suggesting mild pulmonary vascular congestion. There is volume loss at the lung bases slightly worse than on the previous exam most compatible with increasing pleural effusions with associated atelectasis. Underlying pneumonia at either lung base cannot be entirely excluded. IMPRESSION: Mild pulmonary vascular congestion. Increasing bilateral pleural effusions. Associated volume loss at the lung bases likely reflects atelectasis. Underlying pneumonia is not entirely excluded
[2017-03-22 13:25] LABS: BASO # 0.1 x10^3/uL (0.0-0.2); BASO % 1 % (0-3); EOS # 0.2 x10^3/uL (0.0-0.7); EOS % 3 % (0-3); HEMATOCRIT 39.5 % (39.0-53.0); HEMOGLOBIN 13.7 g/dL (13.0-17.5); LYMPH # 1.1 x10^3/uL (1.0-4.8); LYMPH % 20 % (24-48); MEAN CORPUSCULAR HEMOGLOBIN 33 pg (25-35); MEAN CORPUSCULAR HGB CONC 35 g/dL (31-37); MEAN CORPUSCULAR VOLUME 95 fL (79-100); MONO # 0.5 x10^3/uL (0.0-1.1); MONO % 9 % (0-9); NEUT # 3.8 x10^3uL (1.8-7.7); NEUT % 67 % (31-73); PLATELET COUNT 199 x10^3/uL (140-400); RED BLOOD COUNT 4.17 x10^6/uL (4.30-5.70); RED CELL DISTRIBUTION WIDTH 14.9 % (11.5-14.5); WHITE BLOOD COUNT 5.8 x10^3/uL (4.0-11.0)
[2017-03-22 13:34] LABS: BILIRUBIN,URINE NEG (NEG); CLARITY,URINE CLEAR; COLOR,URINE YELLOW; GLUCOSE,URINE NEG (NEG); NITRITE,URINE NEG (NEG); UROBILINOGEN,URINE 0.2 mg/dL (0.2 mg/dL)
[2017-03-22 13:35] LABS: BACTERIA,URINE 0 /HPF (0-FEW); SQUAMOUS EPITHELIAL CELL,UR OCC /LPF
[2017-03-22] MEDS ORDERED: ACET325T9 PO (13:38)
[2017-03-22] MEDS ORDERED: SERT25TA PO (13:38)
[2017-03-22] MEDS ORDERED: LOSA100T2 PO (13:38)
[2017-03-22] MEDS ORDERED: TAMS0.4C2 PO (13:39)
[2017-03-22] MEDS ORDERED: TRIA15CR50 TP (13:42)
[2017-03-22 13:48] LABS: ALBUMIN/GLOBULIN RATIO 0.7 (1.0-1.7); CALCIUM 9.5 mg/dL (8.5-10.1); CREATININE 1.1 mg/dL (0.7-1.3); GFR 64.2; MAGNESIUM 1.9 mg/dL (1.8-2.4); TOTAL BILIRUBIN 0.9 mg/dL (0.2-1.0); TOTAL PROTEIN 7.1 g/dL (6.4-8.2)
[2017-03-22] MEDS: FUROSEMIDE 40 MG/4 ML VIAL IVP SCH (13:49)
[2017-03-22 15:21] VITALS: BP 119/76
[2017-03-22] MEDS ORDERED: FUROSEMIDE 20 MG/2 ML VIAL IVP ONE (15:45)
[2017-03-22] MEDS ORDERED: ACETAMINOPHEN 325 MG TABLET PO PRN (16:15)
[2017-03-22 19:16] VITALS: BP 120/69
[2017-03-22] MEDS: ASPIRIN ENTERIC COATED 81 MG TABLET.DR. PO SCH (19:57)
[2017-03-22] MEDS: TAMSULOSIN 0.4 MG CAP.ER.24H. PO SCH (19:57)
[2017-03-22] MEDS: TRIAMCINOLONE ACETONIDE 0.5% TOPICAL CREAM 15GM TUBE. TP SCH (19:57)
[2017-03-22] MEDS: FENOFIBRATE NANOCRYSTALLIZED 145 MG TABLET PO SCH (19:57)
[2017-03-22] MEDS: SERTRALINE 25 MG TABLET. PO SCH (19:57)
--- NOTE | 2017-03-22 20:30 | HP ---
ADMIT DATE: 03/22/2017 REASON FOR ADMISSION: Congestive heart failure. HISTORY OF PRESENT ILLNESS: This is an 82-year-old gentleman who was treated by Dr. Luna over the weekend at his nursing facility for a 13-pound weight gain. His Lasix was increased to 80 mg on Wednesday and 80 mg on Wednesday. He did not have much diuresis, but today, he is having a significant amount of diuresis, but because he was also having some intermittent short of breath, was directly admitted for more IV diuresis. He reports edema in the arms as well as up past the knee. PAST MEDICAL HISTORY: He had an admission on 02/21 for congestive heart failure after he had an admission for facial cellulitis. Other medical problems include chronic AFib, coronary artery disease, hypertension, hyperlipidemia. He has chronic lower extremity edema. SOCIAL HISTORY: Nonsmoker, no alcohol, lives at home with his family. Daughter is a nurse at the nursing facility where he is. ALLERGIES: ADHESIVE TAPE and AMIODARONE, makes his hair fall out. CURRENT MEDICATIONS: Reviewed and as stated, he had been on Lasix 80 mg Wednesday and Wednesday. REVIEW OF SYSTEMS: With the increasing edema, weight gain, and shortness of breath with moderate exertion. No fever, no sore throat, no chest pain. Positive lower extremity swelling. OBJECTIVE: VITAL SIGNS: Blood pressure 143/67, pulse 63, respirations 20, pulse ox 97% on room air. Height is 68 inches, weight is 209.25 pounds, which is significantly up from previous admission. HEENT: His hearing is slightly hard of hearing. Eyes are clear. Nose is patent. Tongue is moist. NECK: Supple. LUNGS: With some coarse breath sounds. CARDIOVASCULAR: Irregularly irregular, some bradycardia noted. ABDOMEN: Mildly distended. EXTREMITIES: With pitting edema up past his knee and he has edema of the right arm. NEUROLOGIC: He is alert and oriented. LABORATORY DATA: CBC unremarkable. BUN 27, creatinine 1.1. BNP 6348 and his BNP in February was 5508. IMAGING: Chest x-ray shows mild pulmonary vascular congestion, increasing bilateral pleural effusions, pneumonia is not excluded except that he has no symptoms. ASSESSMENT: 1. [id number] diastolic heart failure. 2. Pulmonary hypertension. 3. Chronic atrial fibrillation. 4. Chronic long-term use of anticoagulation, on Coumadin. 5. Coronary artery disease. 6. Hypertension. 7. Hyperlipidemia. 8. Chronic lymphedema and requires compression hose. PLAN: Compression therapy, IV Lasix, diuresis, and strict I and O, Cardiology. DOMINGO REDMAN DO DR: KRISHNA/rodolfo JOB#: [id number] / [id number]
[2017-03-22 23:18] VITALS: BP 95/43
[2017-03-22 23:40] VITALS: BP 114/56
--- NOTE | 2017-03-23 01:54 | PDOC ---
PROVIDER NOTE PROVIDER NOTE PROVIDER NOTE Late entry for 03/22/2017 Reason for consultation: heart failure HPI: 82 y.o man recently sent to [facility] from [facility] returns with significant anasarca. He has had progressive 20 lb weight gain over the last 3 weeks. Etiology is unclear but appears to be dietary. Nonetheless, he also has a history of diastolic heart failure with known pulmonary HTN, most likely secondary due to many comorbidities as noted below. He reports weeping legs, orthopnea and PND. Denies any chest pain but does have exertional dyspnea. No syncope or palpitations. PAST MEDICAL HISTORY: 1. Atrial fibrillation, permanent. 2. Hypertension. 3. Dyslipidemia. 4. Mild coronary artery disease per the patient according to an old heart catheterization. SOCIAL HISTORY: The patient denies any alcohol, tobacco or illicit drug use. He is retired and he lives at home with his . FAMILY HISTORY: Noncontributory. ALLERGIES: ADHESIVE TAPE. CURRENT CARDIOVASCULAR MEDICATIONS: 1. Metoprolol 200 mg p.o. q.h.s. 2. Fenofibrate 145 mg p.o. q.h.s. 3. Warfarin as directed. 4. Losartan 100 mg daily. 5. Fish oil. 6. Lasix 40 mg IV daily. REVIEW OF SYSTEMS: Negative for 03/20 systems reviewed, unless otherwise mentioned above in HPI. PHYSICAL EXAMINATION: VITAL SIGNS: Afebrile, 51, 122/76, 18, 97% on 2L GENERAL: He is alert and oriented, no acute distress. HEAD AND NECK: Unremarkable. HEART: Irregularly irregular rhythm without any significant murmurs, rubs, gallops. LUNGS: Bilateral pleural effusions. ABDOMEN: Soft, nontender, nondistended. EXTREMITIES: 3+ pitting edema with chronic venous stasis changes. MUSCULOSKELETAL: No trauma. SKIN: No rashes. NEUROLOGIC: No focal deficits. DIAGNOSTIC TESTING: Labs reviewed. Telemetry/vitals reviewed IMPRESSION: 1. Acute diastolic heart failure. 2. Permanent atrial fibrillation. 3. Dyslipidemia. 4. Hypertension. RECS: Continue aggressive diuresis 2L fluid, 2gm sodium and daily weights. Will repeat limited TTE to assess for pulmonary pressures. May consider holding coumadin as he might ultimately feel better with thoracentesis and fluid removal. Supportive care. May also need RHC and repeat LHC given this is his 3rd hosp in 1 year for heart failure. KEENAN CORADO MD Mar 23, 2017 01:54
[2017-03-23 05:35] VITALS: BP_SYST 111; BP_SYST 137; BP_DIAS 57; BP_DIAS 80
[2017-03-23 06:23] LABS: BASO % 0 % (0-3); EOS # 0.1 x10^3/uL (0.0-0.7); EOS % 3 % (0-3); HEMOGLOBIN 12.5 g/dL (13.0-17.5); LYMPH % 20 % (24-48); MEAN CORPUSCULAR HEMOGLOBIN 33 pg (25-35); MEAN CORPUSCULAR HGB CONC 35 g/dL (31-37); MEAN CORPUSCULAR VOLUME 95 fL (79-100); MONO # 0.5 x10^3/uL (0.0-1.1); MONO % 11 % (0-9); NEUT # 3.1 x10^3uL (1.8-7.7); NEUT % 66 % (31-73); PLATELET COUNT 151 x10^3/uL (140-400); RED BLOOD COUNT 3.78 x10^6/uL (4.30-5.70); RED CELL DISTRIBUTION WIDTH 14.8 % (11.5-14.5); WHITE BLOOD COUNT 4.7 x10^3/uL (4.0-11.0)
[2017-03-23 06:39] LABS: ALBUMIN 2.6 g/dL (3.4-5.0); ALBUMIN/GLOBULIN RATIO 0.7 (1.0-1.7); CALCIUM 8.8 mg/dL (8.5-10.1); CREATININE 1.1 mg/dL (0.7-1.3); GFR 64.2; MAGNESIUM 1.7 mg/dL (1.8-2.4); POTASSIUM 3.6 mmol/L (3.5-5.1); TOTAL BILIRUBIN 0.9 mg/dL (0.2-1.0); TOTAL PROTEIN 6.1 g/dL (6.4-8.2)
[2017-03-23] MEDS: OMEGA-3 FATTY ACIDS/FISH OIL 1,000 MG CAPSULE. PO SCH (08:36)
[2017-03-23] MEDS: POTASSIUM CHLORIDE 10 MEQ TABLET.ER. PO SCH (08:36)
[2017-03-23] MEDS: FUROSEMIDE 40 MG/4 ML VIAL IVP SCH (08:36)
[2017-03-23] MEDS: VITAMIN E. 400 UNIT CAPSULE. PO SCH (08:37)
[2017-03-23] MEDS: CALCIUM CARB/VIT D3 500/200 TABLET PO SCH (08:37)
[2017-03-23] MEDS: CETIRIZINE HCL 10 MG TABLET PO SCH (08:37)
[2017-03-23] MEDS: LOSARTAN 50 MG TABLET. PO SCH (08:39)
[2017-03-23] MEDS: METOPROLOL SUCC 24HR ER 50 MG TAB.ER.24H. PO SCH (08:39)
[2017-03-23] MEDS ORDERED: METOPROLOL SUCC 24HR ER 50 MG TAB.ER.24H. PO SCH (09:00)
[2017-03-23] MEDS ORDERED: NON FORMULARY ITEM (Flaxseed Oil (Flax Seed Oil) 1,000 MG) PO SCH (09:00)
[2017-03-23] MEDS ORDERED: LOSARTAN 50 MG TABLET. PO SCH (09:00)
[2017-03-23] MEDS ORDERED: POTASSIUM CHLORIDE 10 MEQ TABLET.ER. PO ONE (09:30)
[2017-03-23] MEDS: TRIAMCINOLONE ACETONIDE 0.5% TOPICAL CREAM 15GM TUBE. TP SCH (09:40)
--- NOTE | 2017-03-23 10:29 | PDOC ---
PROGRESS NOTES Assessment 1. Acute diastolic heart failure - Continue diuresis. Good output with IV lasix. CXR in am. 2. Permanent atrial fibrillation - rate controlled 3. Dyslipidemia - controlled 4. Hypertension - controlled on current therapy 5. moderate pulmonary hypertension - OP sleep study as suggested 7. protein malnutrition - consider protein supplement Problems: Subjective breathing better, continued edema but weight decreasing, no palpitations, lightheadedness or chest pain Objective Vital Signs Date Time Temp Pulse Resp B/P (MAP) Pulse Ox O2 Delivery O2 Flow Rate FiO2 03/23/17 08:39 68 137/80 03/23/17 08:30 Nasal Cannula 2.0 03/23/17 05:35 97.0 22 92 Intake and Output 03/24/17 07:00 Intake Total 100 ml Output Total 100 ml Balance 0 ml Intake Oral 100 ml Output Urine Total 100 ml Abdomen: Normal bowel sounds, Soft, No tenderness Heart: Normal S1, Normal S2, Other (no gallops) Extremities: Other (+3 edema) General: Alert, Oriented X3, Cooperative, No acute distress Lungs: Other (decreased bilateral bases) Neuro: Normal speech Psych/Mental Status: Mental status NL, Mood NL Review of Relevant I have reviewed the following items constantin (where applicable) has been applied. Labs Laboratory Tests Test 03/22/17 12:16 03/22/17 12:17 03/22/17 13:15 03/22/17 13:19 Nasal Screen MRSA (PCR) Positive (Negative) Urine Collection Type Unknown Urine Color Yellow Urine Clarity Clear Urine pH 7.0 Urine Specific [place] 1.015 Urine Protein Neg (NEG-TRACE) Urine Glucose (UA) Neg mg/dL (NEG) Urine Ketones (Stick) Neg mg/dL (NEG) Urine Blood Neg (NEG) Urine Nitrite Neg (NEG) Urine Bilirubin Neg (NEG) Urine Urobilinogen Dipstick 0.2 mg/dL (0.2 mg/dL) Urine Leukocyte Esterase Trace (NEG) Urine RBC 1-2 /HPF (0-2) Urine WBC 1-4 /HPF (0-4) Urine Squamous Epithelial Cells Occ /LPF Urine Bacteria 0 /HPF (0-FEW) Urine Mucus Slight /LPF Prothrombin Time 38.8 SEC (9.4-11.4) Prothromb Time International Ratio 3.9 (0.9-1.1) White Blood Count 5.8 x10^3/uL (4.0-11.0) Red Blood Count 4.17 x10^6/uL (4.30-5.70) Hemoglobin 13.7 g/dL (13.0-17.5) Hematocrit 39.5 % (39.0-53.0) Mean Corpuscular Volume 95 fL (79-100) Mean Corpuscular Hemoglobin 33 pg (25-35) Mean Corpuscular Hemoglobin Concent 35 g/dL (31-37) Red Cell Distribution Width 14.9 % (11.5-14.5) Platelet Count 199 x10^3/uL (140-400) Neutrophils (%) (Auto) 67 % (31-73) Lymphocytes (%) (Auto) 20 % (24-48) Monocytes (%) (Auto) 9 % (0-9) Eosinophils (%) (Auto) 3 % (0-3) Basophils (%) (Auto) 1 % (0-3) Neutrophils # (Auto) 3.8 x10^3uL (1.8-7.7) Lymphocytes # (Auto) 1.1 x10^3/uL (1.0-4.8) Monocytes # (Auto) 0.5 x10^3/uL (0.0-1.1) Eosinophils # (Auto) 0.2 x10^3/uL (0.0-0.7) Basophils # (Auto) 0.1 x10^3/uL (0.0-0.2) Sodium Level 136 mmol/L (136-145) Potassium Level 4.0 mmol/L (3.5-5.1) Chloride Level 98 mmol/L (98-107) Carbon Dioxide Level 39 mmol/L (21-32) Anion Gap -1 (6-14) Blood Urea Nitrogen 27 mg/dL (8-26) Creatinine 1.1 mg/dL (0.7-1.3) Estimated GFR (Cockcroft-Gault) 64.2 BUN/Creatinine Ratio 25 (6-20) Glucose Level 94 mg/dL (70-99) Calcium Level 9.5 mg/dL (8.5-10.1) Magnesium Level 1.9 mg/dL (1.8-2.4) Total Bilirubin 0.9 mg/dL (0.2-1.0) Aspartate Amino Transf (AST/SGOT) 44 U/L (15-37) Alanine Aminotransferase (ALT/SGPT) 32 U/L (16-63) Alkaline Phosphatase 172 U/L (46-116) OX-Vmp-V-Type Natriuretic Peptide 6348 pg/mL (0-449) Total Protein 7.1 g/dL (6.4-8.2) Albumin 3.0 g/dL (3.4-5.0) Albumin/Globulin Ratio 0.7 (1.0-1.7) Test 03/23/17 05:39 White Blood Count 4.7 x10^3/uL (4.0-11.0) Red Blood Count 3.78 x10^6/uL (4.30-5.70) Hemoglobin 12.5 g/dL (13.0-17.5) Hematocrit 36.0 % (39.0-53.0) Mean Corpuscular Volume 95 fL (79-100) Mean Corpuscular Hemoglobin 33 pg (25-35) Mean Corpuscular Hemoglobin Concent 35 g/dL (31-37) Red Cell Distribution Width 14.8 % (11.5-14.5) Platelet Count 151 x10^3/uL (140-400) Neutrophils (%) (Auto) 66 % (31-73) Lymphocytes (%) (Auto) 20 % (24-48) Monocytes (%) (Auto) 11 % (0-9) Eosinophils (%) (Auto) 3 % (0-3) Basophils (%) (Auto) 0 % (0-3) Neutrophils # (Auto) 3.1 x10^3uL (1.8-7.7) Lymphocytes # (Auto) 1.0 x10^3/uL (1.0-4.8) Monocytes # (Auto) 0.5 x10^3/uL (0.0-1.1) Eosinophils # (Auto) 0.1 x10^3/uL (0.0-0.7) Basophils # (Auto) 0.0 x10^3/uL (0.0-0.2) Prothrombin Time 38.5 SEC (9.4-11.4) Prothromb Time International Ratio 3.8 (0.9-1.1) Sodium Level 137 mmol/L (136-145) Potassium Level 3.6 mmol/L (3.5-5.1) Chloride Level 99 mmol/L (98-107) Carbon Dioxide Level 39 mmol/L (21-32) Anion Gap -1 (6-14) Blood Urea Nitrogen 30 mg/dL (8-26) Creatinine 1.1 mg/dL (0.7-1.3) Estimated GFR (Cockcroft-Gault) 64.2 BUN/Creatinine Ratio 27 (6-20) Glucose Level 90 mg/dL (70-99) Calcium Level 8.8 mg/dL (8.5-10.1) Magnesium Level 1.7 mg/dL (1.8-2.4) Total Bilirubin 0.9 mg/dL (0.2-1.0) Aspartate Amino Transf (AST/SGOT) 38 U/L (15-37) Alanine Aminotransferase (ALT/SGPT) 27 U/L (16-63) Alkaline Phosphatase 149 U/L (46-116) Total Protein 6.1 g/dL (6.4-8.2) Albumin 2.6 g/dL (3.4-5.0) Albumin/Globulin Ratio 0.7 (1.0-1.7) Medications Current Medications Furosemide (Lasix) 40 mg DAILY IVP Last administered on 03/23/17 08:36; Start 03/22/17 at 11:30 Furosemide (Lasix) 20 mg 1X ONCE IVP Last administered on 03/22/17 15:53; Start 03/22/17 at 15:45; Stop 03/22/17 at 15:46; Status DC Triamcinolone Acetonide (Aristocort) 1 jhony DAILY TP Last administered on 09:40; Start 03/22/17 at 16:30 Acetaminophen (Tylenol) 650 mg PRN Q6HRS PRN PO PAIN/TEMP Last administered on 03/22/17 23:45; Start 03/22/17 at 16:15 Aspirin (Aspirin Enteric Coated) 81 mg HS PO Last administered on 03/22/17 19 :57; Start 03/22/17 at 21:00 Calcium/Vitamin D (Oscal D 500mg/ 200uts) 1 tab DAILY PO Last administered on 03/23/17 08:37; Start 03/23/17 at 09:00 Fenofibrate (Tricor) 145 mg HS PO Last administered on 03/22/17 19:57; Start 03/22/17 at 21:00 Sertraline HCl (Zoloft) 25 mg HS PO Last administered on 03/22/17 19:57; Start 03/22/17 at 21:00 Tamsulosin HCl (Flomax) 0.4 mg HS PO Last administered on 03/22/17 19:57; Start 03/22/17 at 21:00 Warfarin Sodium (Coumadin) 1.5 mg QODAY@1600 PO ; Start 03/23/17 at 16:00; Stop 03/23/17 at 16:00; Status DC Warfarin Sodium (Coumadin) 2 mg QODAY@1600 PO ; Start 03/24/17 at 16:00; Stop 03/24/17 at 16:00; Status DC Non-Formulary Medication 1,000 mg DAILY PO ; Start 03/23/17 at 09:00; Stop at 09:00; Status DC Cetirizine HCl (ZyrTEC) 10 mg DAILY PO Last administered on 03/23/17 08:37; Start 03/23/17 at 09:00 Losartan Potassium (Cozaar) 100 mg DAILY PO ; Start 03/23/17 at 09:00; Stop at 09:00; Status DC Metoprolol Succinate (Toprol Xl) 200 mg DAILY PO ; Start 03/23/17 at 09:00; Stop 03/23/17 at 09:00; Status DC Fish Oil (Fish Oil) 2,000 mg DAILY PO Last administered on 03/23/17 08:36; Start 03/23/17 at 09:00 Potassium Chloride (Klor-Con) 10 meq DAILYWBKFT PO Last administered on 08:36; Start 03/23/17 at 08:00 Vitamin E 400 unit DAILY PO Last administered on 03/23/17 08:37; Start 03/23 at 09:00 Warfarin Sodium (Coumadin Per Pharmacy) 1 each PRN DAILY PRN MC SEE COMMENTS Last administered on 03/22/17 17:07; Start 03/22/17 at 16:45 Warfarin Sodium (Coumadin - No Dose Today) 1 each 1X WARF ONCE MC ; Start at 17:15; Stop 03/22/17 at 17:16; Status DC Losartan Potassium (Cozaar) 50 mg DAILY PO Last administered on 03/23/17 08: 39; Start 03/23/17 at 09:00 Metoprolol Succinate (Toprol Xl) 100 mg DAILY PO Last administered on 08:39; Start 03/23/17 at 09:00 Potassium Chloride (Klor-Con) 30 meq 1X ONCE PO Last administered on 09:43; Start 03/23/17 at 09:30; Stop 03/23/17 at 09:34; Status DC Active Scripts Active Reported Triamcinolone Acetonide 15 Gm Cream..g. 1 Jhony TP DAILY apply to LE bilateral TP every day shift. Cleanse, apply cream, xeroform gauze. Then dry dressing, roll gauze. Compression dressing. Tamsulosin Hcl 0.4 Mg Cap.er.24h 1 Cap PO HS Tylenol (Acetaminophen) 325 Mg Tablet 2 Tab PO PRN Q6HRS Zoloft (Sertraline Hcl) 25 Mg Tablet 1 Tab PO HS Cozaar (Losartan Potassium) 100 Mg Tablet 100 Mg PO HS Coumadin (Warfarin Sodium) 1 Mg Tablet 1.5 Tab PO QODAY 1.5 MG Every Wed, Wed, , Wed Coumadin (Warfarin Sodium) 1 Mg Tablet 2 Mg PO QODAY 2mg due Wednesday, Wed, Wed Potassium Chloride 10 Meq Capsule.er 1 Cap PO DAILY LAST DOSE GIVEN: DATE: TODAY TIME: AM NEXT DOSE DUE: DATE: TOMORROW TIME: AM Vitamin E (Vitamin E Acetate) 400 Unit Capsule 400 Unit PO DAILY NEXT DOSE DUE: DATE: RESTART TODAY TIME: WHEN YOU GET HOME NEXT DOSE DUE: DATE: RESTART TODAY TIME: WHEN YOU GET HOME Fenofibrate (Fenofibrate Nanocrystallized) 145 Mg Tablet 1 Tab PO HS LAST DOSE GIVEN: DATE: YESTERDAY TIME: AT BEDTIME NEXT DOSE DUE: DATE: TODAY TIME: AT BEDTIME Calcium 500 + Vit D 200 Tablet (Calcium Carbonate/Vitamin D3) 1 Each Tablet 1 Each PO DAILY LAST DOSE GIVEN: DATE: TODAY TIME: AM NEXT DOSE DUE: DATE: TOMORROW TIME: AM Loratadine 10 Mg Tablet 1 Tab PO DAILY LAST DOSE GIVEN: DATE: TODAY TIME: AM NEXT DOSE DUE: DATE: TOMORROW TIME: AM Aspir 81 (Aspirin) 81 Mg Tablet.dr 81 Mg PO HS LAST DOSE GIVEN: DATE: TODAY TIME: AM NEXT DOSE DUE: DATE: TOMORROW TIME: AM Flax Seed Oil (Flaxseed Oil) 1,000 Mg Capsule 1,000 Mg PO DAILY NEXT DOSE DUE: DATE: RESTART TODAY TIME: WHEN YOU GET HOME NEXT DOSE DUE: DATE: RESTART TODAY TIME: WHEN YOU GET HOME Fish Oil Softgel ([place]-3 Fatty Acids/Fish Oil) 1 Each Capsule 2 Each PO DAILY LAST DOSE GIVEN: DATE: TODAY TIME: AM NEXT DOSE DUE: DATE: TODAY TIME: PM Furosemide 20 Mg Tablet 40 Mg PO DAILY LAST DOSE GIVEN: DATE: Today TIME: AM NEXT DOSE DUE: DATE: Tomorrow TIME: AM TIME: PM THEN TAKE 40 MG ONCE DAILY STARTING Wednesday Metoprolol Succinate ( Xl ) (Metoprolol Succinate) 200 Mg Tab.er.24h 200 Mg PO DAILY LAST DOSE GIVEN: DATE: YESTERDAY TIME: AT BEDTIME NEXT DOSE DUE: DATE: TODAY TIME: AT BEDTIME Vitals/I & O Vital Sign - Last 24 Hours 03/22/17 03/22/17 03/22/17 03/22/17 11:42 13:50 15:21 19:16 Temp 97.3 Pulse 63 60 60 Resp 20 21 21 B/P (MAP) 143/67 (92) 119/76 (90) 120/69 (86) Pulse Ox 97 98 94 O2 Delivery Room Air Nasal Cannula Nasal Cannula Nasal Cannula O2 Flow Rate 2.0 2.0 2.0 03/22/17 03/22/17 03/22/17 03/23/17 19:45 23:18 23:40 05:35 Temp 97.0 Pulse 65 61 68 Resp 19 20 22 B/P (MAP) 95/43 (60) 114/56 (75) 137/80 (99) Pulse Ox 94 92 O2 Delivery Nasal Cannula Room Air Nasal Cannula Nasal Cannula O2 Flow Rate 2.0 2.0 2.0 03/23/17 03/23/17 03/23/17 08:30 08:39 08:39 Pulse 68 68 B/P (MAP) 137/80 137/80 O2 Delivery Nasal Cannula O2 Flow Rate 2.0 Intake and Output 03/23/17 03/23/17 03/24/17 15:00 23:00 07:00 Intake Total 100 ml Output Total 100 ml Balance 0 ml KRISTIE DAVIS APRN Mar 23, 2017 10:28
[2017-03-23 11:15] VITALS: BP 131/81
--- NOTE | 2017-03-23 12:38 | CARD ---
APPROVED REPORT EXAM: Two-dimensional and M-mode echocardiogram with Doppler and color Doppler. Other Information Quality : GoodHR: 67bpm INDICATION RSVP 2D DIMENSIONS IVSd1.0 (0.7-1.1cm)LVDd4.1 (3.9-5.9cm) PWd1.0 (0.7-1.1cm)LVDs2.5 (2.5-4.0cm) FS (%) 39.0 %LVEF(%)70.0 (>50%) Tricuspid Valve TR P. [id number] [id number] TR Peak [id number] LEFT VENTRICLE The left ventricular systolic function is normal. The ejection fraction is estimated at 60%. There is normal LV segmental wall motion. RIGHT VENTRICLE The right ventricular systolic function is normal. MITRAL VALVE Doppler and Color-flow revealed mild mitral regurgitation. TRICUSPID VALVE The tricuspid valve is normal in structure and function. Doppler and Color Flow revealed moderate tri cuspid regurgitation. There is no tricuspid valve prolapse or vegetation. There is no tricuspid valve stenosis. GREAT VESSELS The IVC was not visualized. PERICARDIAL EFFUSION There is no pleural effusion. There is no evidence of significant pericardial effusion. Critical Notification Critical Value: No <Conclusion> Limited and technically difficult study. The left ventricular systolic function is normal. The ejection fraction is estimated at 60%. There is normal LV segmental wall motion. Doppler and Color Flow revealed moderate tricuspid regurgitation. IVC size not assessed. PAP atleast 73 mm Hg based on TR velocity consistent with severe pulmonary hypertension. There is no evidence of significant pericardial effusion.
[2017-03-23] MEDS ORDERED: WARFARIN 1 MG TABLET. PO SCH (16:00)
[2017-03-23 16:21] VITALS: BP 142/69
[2017-03-23 19:20] VITALS: BP 124/72
[2017-03-23] MEDS: FENOFIBRATE NANOCRYSTALLIZED 145 MG TABLET PO SCH (20:32)
[2017-03-23] MEDS: TAMSULOSIN 0.4 MG CAP.ER.24H. PO SCH (20:32)
[2017-03-23] MEDS: SERTRALINE 25 MG TABLET. PO SCH (20:32)
[2017-03-23] MEDS: ASPIRIN ENTERIC COATED 81 MG TABLET.DR. PO SCH (20:32)
[2017-03-23 23:03] VITALS: BP 89/54
--- NOTE | 2017-03-24 02:12 | PN ---
DATE: 03/23/2017 PROBLEMS: 1. Acute diastolic heart failure. 2. Permanent atrial fibrillation. 3. Chronic lower extremity edema. 4. Long-term use of anticoagulants. 5. Supratherapeutic INR. 6. Moderate pulmonary hypertension. 7. Protein malnutrition. 8. MRSA positive. SUBJECTIVE: Doing better. Has lost 9 pounds on IV Lasix. Feels much less puffy. Has supratherapeutic INR and is being monitored by the pharmacy. His Coumadin is being held. OBJECTIVE: VITAL SIGNS: Blood pressure 137/80, pulse 68, temperature 97.0, respirations 22, O2 sat 94% on 2 liters. Weight 201.44 pounds, down approximately 9 pounds. Intake was 470, output 4025, a deficit of -3555. GENERAL: His overall appearance is less puffy. He is sitting over the side of bed, in no distress. Face a little bit of runny. HEENT: Tongue is still moist. NECK: Supple. LUNGS: Clear in all berry. CARDIOVASCULAR: Irregularly irregular. ABDOMEN: Soft, nontender, less tight. EXTREMITIES: With some diminished edema. LABORATORY DATA: CBC fine. CMP: Albumin 2.6, BUN and creatinine are holding steady. His INR was 3.8. PLAN: Continue diuresis. Start planning for discharge. DOMINGO REDMAN DO DR: KRISHNA/rodolfo JOB#: [id number] / [id number]
[2017-03-24 05:15] VITALS: BP 142/74
[2017-03-24 06:28] LABS: HEMATOCRIT 36.9 % (39.0-53.0); HEMOGLOBIN 12.7 g/dL (13.0-17.5); RED BLOOD COUNT 3.87 x10^6/uL (4.30-5.70); WHITE BLOOD COUNT 4.6 x10^3/uL (4.0-11.0)
[2017-03-24 06:44] LABS: ALBUMIN 2.7 g/dL (3.4-5.0); ALBUMIN/GLOBULIN RATIO 0.8 (1.0-1.7); CALCIUM 8.8 mg/dL (8.5-10.1); GFR 71.7; MAGNESIUM 1.8 mg/dL (1.8-2.4); TOTAL BILIRUBIN 0.9 mg/dL (0.2-1.0); TOTAL PROTEIN 6.3 g/dL (6.4-8.2)
[2017-03-24] MEDS: VITAMIN E. 400 UNIT CAPSULE. PO SCH (08:33)
[2017-03-24] MEDS: CALCIUM CARB/VIT D3 500/200 TABLET PO SCH (08:33)
[2017-03-24] MEDS: OMEGA-3 FATTY ACIDS/FISH OIL 1,000 MG CAPSULE. PO SCH (08:33)
[2017-03-24] MEDS: LOSARTAN 50 MG TABLET. PO SCH (08:34)
[2017-03-24] MEDS: CETIRIZINE HCL 10 MG TABLET PO SCH (08:34)
[2017-03-24] MEDS: METOPROLOL SUCC 24HR ER 50 MG TAB.ER.24H. PO SCH (08:34)
[2017-03-24] MEDS: POTASSIUM CHLORIDE 10 MEQ TABLET.ER. PO SCH (08:34)
[2017-03-24] MEDS: FUROSEMIDE 40 MG/4 ML VIAL IVP SCH (08:35)
[2017-03-24] MEDS: TRIAMCINOLONE ACETONIDE 0.5% TOPICAL CREAM 15GM TUBE. TP SCH (09:55)
--- NOTE | 2017-03-24 10:21 | RAD ---
Indication difficulty breathing. A single view of the chest was obtained and is compared to a study 2 days previously. Changes of mild congestive heart failure persist and appear similar to minimally worse. Bilateral pleural effusions are probably slightly larger. Volume loss at the lung bases likely reflects passive atelectasis associated with the pleural fluid. IMPRESSION: Slight interval worsening in the appearance of the chest
--- NOTE | 2017-03-24 11:01 | PDOC ---
KRISTIE DAVIS DIRECTOR OF INSTITUTIONAL GIVING 03/24/17 1101: PROGRESS NOTES Assessment 1. Acute diastolic heart failure - continued good diuresis but effusions slightly increased. Recommend continued diuresis, hold coumadin and plan for thoracentesis. 2. Permanent atrial fibrillation - rate controlled 3. Dyslipidemia - controlled 4. Hypertension - controlled on current therapy 5. moderate pulmonary hypertension - OP sleep study as suggested 7. protein malnutrition - consider protein supplement Suggest transfer to [facility]. Problems: Subjective He reports improved dyspnea, edema remains but improving. no chest pain. Objective Vital Signs Date Time Temp Pulse Resp B/P (MAP) Pulse Ox O2 Delivery O2 Flow Rate FiO2 03/24/17 08:34 67 142/74 03/24/17 08:00 Nasal Cannula 2.0 03/24/17 05:15 97.0 18 93 Intake and Output 03/25/17 07:00 Intake Total 360 ml Balance 360 ml Intake Oral 360 ml Abdomen: Normal bowel sounds, Soft, No tenderness Heart: Other (Irregular rate and rhythm, no gallops) Extremities: Other (+3 edema) General: Alert, Oriented X3, Cooperative, No acute distress Lungs: Other (decreased mid to base bilaterally with occasional crackles on right) Neuro: Normal speech Psych/Mental Status: Mental status NL, Mood NL Review of Relevant I have reviewed the following items constantin (where applicable) has been applied. Labs Laboratory Tests Test 03/22/17 12:16 03/22/17 12:17 03/22/17 13:15 03/22/17 13:19 Nasal Screen MRSA (PCR) Positive (Negative) Urine Collection Type Unknown Urine Color Yellow Urine Clarity Clear Urine pH 7.0 Urine Specific [place] 1.015 Urine Protein Neg (NEG-TRACE) Urine Glucose (UA) Neg mg/dL (NEG) Urine Ketones (Stick) Neg mg/dL (NEG) Urine Blood Neg (NEG) Urine Nitrite Neg (NEG) Urine Bilirubin Neg (NEG) Urine Urobilinogen Dipstick 0.2 mg/dL (0.2 mg/dL) Urine Leukocyte Esterase Trace (NEG) Urine RBC 1-2 /HPF (0-2) Urine WBC 1-4 /HPF (0-4) Urine Squamous Epithelial Cells Occ /LPF Urine Bacteria 0 /HPF (0-FEW) Urine Mucus Slight /LPF Prothrombin Time 38.8 SEC (9.4-11.4) Prothromb Time International Ratio 3.9 (0.9-1.1) White Blood Count 5.8 x10^3/uL (4.0-11.0) Red Blood Count 4.17 x10^6/uL (4.30-5.70) Hemoglobin 13.7 g/dL (13.0-17.5) Hematocrit 39.5 % (39.0-53.0) Mean Corpuscular Volume 95 fL (79-100) Mean Corpuscular Hemoglobin 33 pg (25-35) Mean Corpuscular Hemoglobin Concent 35 g/dL (31-37) Red Cell Distribution Width 14.9 % (11.5-14.5) Platelet Count 199 x10^3/uL (140-400) Neutrophils (%) (Auto) 67 % (31-73) Lymphocytes (%) (Auto) 20 % (24-48) Monocytes (%) (Auto) 9 % (0-9) Eosinophils (%) (Auto) 3 % (0-3) Basophils (%) (Auto) 1 % (0-3) Neutrophils # (Auto) 3.8 x10^3uL (1.8-7.7) Lymphocytes # (Auto) 1.1 x10^3/uL (1.0-4.8) Monocytes # (Auto) 0.5 x10^3/uL (0.0-1.1) Eosinophils # (Auto) 0.2 x10^3/uL (0.0-0.7) Basophils # (Auto) 0.1 x10^3/uL (0.0-0.2) Sodium Level 136 mmol/L (136-145) Potassium Level 4.0 mmol/L (3.5-5.1) Chloride Level 98 mmol/L (98-107) Carbon Dioxide Level 39 mmol/L (21-32) Anion Gap -1 (6-14) Blood Urea Nitrogen 27 mg/dL (8-26) Creatinine 1.1 mg/dL (0.7-1.3) Estimated GFR (Cockcroft-Gault) 64.2 BUN/Creatinine Ratio 25 (6-20) Glucose Level 94 mg/dL (70-99) Calcium Level 9.5 mg/dL (8.5-10.1) Magnesium Level 1.9 mg/dL (1.8-2.4) Total Bilirubin 0.9 mg/dL (0.2-1.0) Aspartate Amino Transf (AST/SGOT) 44 U/L (15-37) Alanine Aminotransferase (ALT/SGPT) 32 U/L (16-63) Alkaline Phosphatase 172 U/L (46-116) UU-Oni-G-Type Natriuretic Peptide 6348 pg/mL (0-449) Total Protein 7.1 g/dL (6.4-8.2) Albumin 3.0 g/dL (3.4-5.0) Albumin/Globulin Ratio 0.7 (1.0-1.7) Test 03/23/17 05:39 03/24/17 05:39 White Blood Count 4.7 x10^3/uL (4.0-11.0) 4.6 x10^3/uL (4.0-11.0) Red Blood Count 3.78 x10^6/uL (4.30-5.70) 3.87 x10^6/uL (4.30-5.70) Hemoglobin 12.5 g/dL (13.0-17.5) 12.7 g/dL (13.0-17.5) Hematocrit 36.0 % (39.0-53.0) 36.9 % (39.0-53.0) Mean Corpuscular Volume 95 fL (79-100) 95 fL (79-100) Mean Corpuscular Hemoglobin 33 pg (25-35) 33 pg (25-35) Mean Corpuscular Hemoglobin Concent 35 g/dL (31-37) 34 g/dL (31-37) Red Cell Distribution Width 14.8 % (11.5-14.5) 15.0 % (11.5-14.5) Platelet Count 151 x10^3/uL (140-400) 154 x10^3/uL (140-400) Neutrophils (%) (Auto) 66 % (31-73) Lymphocytes (%) (Auto) 20 % (24-48) Monocytes (%) (Auto) 11 % (0-9) Eosinophils (%) (Auto) 3 % (0-3) Basophils (%) (Auto) 0 % (0-3) Neutrophils # (Auto) 3.1 x10^3uL (1.8-7.7) Lymphocytes # (Auto) 1.0 x10^3/uL (1.0-4.8) Monocytes # (Auto) 0.5 x10^3/uL (0.0-1.1) Eosinophils # (Auto) 0.1 x10^3/uL (0.0-0.7) Basophils # (Auto) 0.0 x10^3/uL (0.0-0.2) Prothrombin Time 38.5 SEC (9.4-11.4) 29.4 SEC (9.4-11.4) Prothromb Time International Ratio 3.8 (0.9-1.1) 2.9 (0.9-1.1) Sodium Level 137 mmol/L (136-145) 138 mmol/L (136-145) Potassium Level 3.6 mmol/L (3.5-5.1) 4.0 mmol/L (3.5-5.1) Chloride Level 99 mmol/L (98-107) 98 mmol/L (98-107) Carbon Dioxide Level 39 mmol/L (21-32) 40 mmol/L (21-32) Anion Gap -1 (6-14) 0 (6-14) Blood Urea Nitrogen 30 mg/dL (8-26) 28 mg/dL (8-26) Creatinine 1.1 mg/dL (0.7-1.3) 1.0 mg/dL (0.7-1.3) Estimated GFR (Cockcroft-Gault) 64.2 71.7 BUN/Creatinine Ratio 27 (6-20) 28 (6-20) Glucose Level 90 mg/dL (70-99) 90 mg/dL (70-99) Calcium Level 8.8 mg/dL (8.5-10.1) 8.8 mg/dL (8.5-10.1) Magnesium Level 1.7 mg/dL (1.8-2.4) 1.8 mg/dL (1.8-2.4) Total Bilirubin 0.9 mg/dL (0.2-1.0) 0.9 mg/dL (0.2-1.0) Aspartate Amino Transf (AST/SGOT) 38 U/L (15-37) 40 U/L (15-37) Alanine Aminotransferase (ALT/SGPT) 27 U/L (16-63) 29 U/L (16-63) Alkaline Phosphatase 149 U/L (46-116) 135 U/L (46-116) Total Protein 6.1 g/dL (6.4-8.2) 6.3 g/dL (6.4-8.2) Albumin 2.6 g/dL (3.4-5.0) 2.7 g/dL (3.4-5.0) Albumin/Globulin Ratio 0.7 (1.0-1.7) 0.8 (1.0-1.7) Microbiology 03/22/17 Urine Culture - Preliminary, Resulted 03/22/17 Urine Culture Result 1 (ROSALIO) - Preliminary, Resulted Medications Current Medications Furosemide (Lasix) 40 mg DAILY IVP Last administered on 03/24/17 08:35; Start 03/22/17 at 11:30 Furosemide (Lasix) 20 mg 1X ONCE IVP Last administered on 03/22/17 15:53; Start 03/22/17 at 15:45; Stop 03/22/17 at 15:46; Status DC Triamcinolone Acetonide (Aristocort) 1 jhony DAILY TP Last administered on 09:55; Start 03/22/17 at 16:30 Acetaminophen (Tylenol) 650 mg PRN Q6HRS PRN PO PAIN/TEMP Last administered on 03/22/17 23:45; Start 03/22/17 at 16:15 Aspirin (Aspirin Enteric Coated) 81 mg HS PO Last administered on 03/23/17 20 :32; Start 03/22/17 at 21:00 Calcium/Vitamin D (Oscal D 500mg/ 200uts) 1 tab DAILY PO Last administered on 03/24/17 08:33; Start 03/23/17 at 09:00 Fenofibrate (Tricor) 145 mg HS PO Last administered on 03/23/17 20:32; Start 03/22/17 at 21:00 Sertraline HCl (Zoloft) 25 mg HS PO Last administered on 03/23/17 20:32; Start 03/22/17 at 21:00 Tamsulosin HCl (Flomax) 0.4 mg HS PO Last administered on 03/23/17 20:32; Start 03/22/17 at 21:00 Warfarin Sodium (Coumadin) 1.5 mg QODAY@1600 PO ; Start 03/23/17 at 16:00; Stop 03/23/17 at 16:00; Status DC Warfarin Sodium (Coumadin) 2 mg QODAY@1600 PO ; Start 03/24/17 at 16:00; Stop 03/24/17 at 16:00; Status DC Non-Formulary Medication 1,000 mg DAILY PO ; Start 03/23/17 at 09:00; Stop at 09:00; Status DC Cetirizine HCl (ZyrTEC) 10 mg DAILY PO Last administered on 03/24/17 08:34; Start 03/23/17 at 09:00 Losartan Potassium (Cozaar) 100 mg DAILY PO ; Start 03/23/17 at 09:00; Stop at 09:00; Status DC Metoprolol Succinate (Toprol Xl) 200 mg DAILY PO ; Start 03/23/17 at 09:00; Stop 03/23/17 at 09:00; Status DC Fish Oil (Fish Oil) 2,000 mg DAILY PO Last administered on 03/24/17 08:33; Start 03/23/17 at 09:00 Potassium Chloride (Klor-Con) 10 meq DAILYWBKFT PO Last administered on 08:34; Start 03/23/17 at 08:00 Vitamin E 400 unit DAILY PO Last administered on 03/24/17 08:33; Start 03/23 at 09:00 Warfarin Sodium (Coumadin Per Pharmacy) 1 each PRN DAILY PRN MC SEE COMMENTS Last administered on 03/24/17 09:05; Start 03/22/17 at 16:45 Warfarin Sodium (Coumadin - No Dose Today) 1 each 1X WARF ONCE MC ; Start at 17:15; Stop 03/22/17 at 17:16; Status DC Losartan Potassium (Cozaar) 50 mg DAILY PO Last administered on 03/24/17 08: 34; Start 03/23/17 at 09:00 Metoprolol Succinate (Toprol Xl) 100 mg DAILY PO Last administered on 08:34; Start 03/23/17 at 09:00 Potassium Chloride (Klor-Con) 30 meq 1X ONCE PO Last administered on 10/17/ 17at 09:43; Start 03/23/17 at 09:30; Stop 03/23/17 at 09:34; Status DC Warfarin Sodium (Coumadin - No Dose Today) 1 each 1X WARF ONCE MC ; Start at 16:00; Stop 03/23/17 at 16:01; Status DC Warfarin Sodium (Coumadin) 2 mg 1X WARF ONCE PO ; Start 03/24/17 at 16:00; Stop 03/24/17 at 16:01 Active Scripts Active Reported Triamcinolone Acetonide 15 Gm Cream..g. 1 Jhony TP DAILY apply to LE bilateral TP every day shift. Cleanse, apply cream, xeroform gauze. Then dry dressing, roll gauze. Compression dressing. Tamsulosin Hcl 0.4 Mg Cap.er.24h 1 Cap PO HS Tylenol (Acetaminophen) 325 Mg Tablet 2 Tab PO PRN Q6HRS Zoloft (Sertraline Hcl) 25 Mg Tablet 1 Tab PO HS Cozaar (Losartan Potassium) 100 Mg Tablet 100 Mg PO HS Coumadin (Warfarin Sodium) 1 Mg Tablet 1.5 Tab PO QODAY 1.5 MG Every Wed, Wed, , Wed Coumadin (Warfarin Sodium) 1 Mg Tablet 2 Mg PO QODAY 2mg due Wednesday, Wed, Wed Potassium Chloride 10 Meq Capsule.er 1 Cap PO DAILY LAST DOSE GIVEN: DATE: TODAY TIME: AM NEXT DOSE DUE: DATE: TOMORR TIME: AM Vitamin E (Vitamin E Acetate) 400 Unit Capsule 400 Unit PO DAILY NEXT DOSE DUE: DATE: RESTART TODAY TIME: WHEN YOU GET HOME NEXT DOSE DUE: DATE: RESTART TODAY TIME: WHEN YOU GET HOME Fenofibrate (Fenofibrate Nanocrystallized) 145 Mg Tablet 1 Tab PO HS LAST DOSE GIVEN: DATE: YESTERDAY TIME: AT BEDTIME NEXT DOSE DUE: DATE: TODAY TIME: AT BEDTIME Calcium 500 + Vit D 200 Tablet (Calcium Carbonate/Vitamin D3) 1 Each Tablet 1 Each PO DAILY LAST DOSE GIVEN: DATE: TODAY TIME: AM NEXT DOSE DUE: DATE: TOMORROW TIME: AM Loratadine 10 Mg Tablet 1 Tab PO DAILY LAST DOSE GIVEN: DATE: TODAY TIME: AM NEXT DOSE DUE: DATE: TOMORROW TIME: AM Aspir 81 (Aspirin) 81 Mg Tablet.dr 81 Mg PO HS LAST DOSE GIVEN: DATE: TODAY TIME: AM NEXT DOSE DUE: DATE: TOMORROW TIME: AM Flax Seed Oil (Flaxseed Oil) 1,000 Mg Capsule 1,000 Mg PO DAILY NEXT DOSE DUE: DATE: RESTART TODAY TIME: WHEN YOU GET HOME NEXT DOSE DUE: DATE: RESTART TODAY TIME: WHEN YOU GET HOME Fish Oil Softgel ([place]-3 Fatty Acids/Fish Oil) 1 Each Capsule 2 Each PO DAILY LAST DOSE GIVEN: DATE: TODAY TIME: AM NEXT DOSE DUE: DATE: TODAY TIME: PM Furosemide 20 Mg Tablet 40 Mg PO DAILY LAST DOSE GIVEN: DATE: Today TIME: AM NEXT DOSE DUE: DATE: Tomorrow TIME: AM TIME: PM THEN TAKE 40 MG ONCE DAILY STARTING Wednesday Metoprolol Succinate ( Xl ) (Metoprolol Succinate) 200 Mg Tab.er.24h 200 Mg PO DAILY LAST DOSE GIVEN: DATE: YESTERDAY TIME: AT BEDTIME NEXT DOSE DUE: DATE: TODAY TIME: AT BEDTIME Vitals/I & O Vital Sign - Last 24 Hours 03/23/17 03/23/17 03/23/17 03/23/17 11:15 16:21 19:15 19:20 Temp 97.9 Pulse 64 56 66 Resp 23 23 22 B/P (MAP) 131/81 (98) 142/69 (93) 124/72 (89) Pulse Ox 94 97 96 O2 Delivery Nasal Cannula Nasal Cannula Nasal Cannula Nasal Cannula O2 Flow Rate 2.0 2.0 2.0 2.0 03/23/17 03/24/17 03/24/17 03/24/17 23:03 05:15 08:00 08:34 Temp 97.0 Pulse 62 67 67 Resp 16 18 B/P (MAP) 89/54 (66) 142/74 (96) 142/74 Pulse Ox 93 O2 Delivery Room Air Nasal Cannula O2 Flow Rate 2.0 03/24/17 08:34 Pulse 67 B/P (MAP) 142/74 Intake and Output 03/24/17 03/24/17 03/25/17 15:00 23:00 07:00 Intake Total 360 ml Balance 360 ml KEENAN CORADO MD 03/24/17 0315: PROGRESS NOTES Review of Relevant Patient seen and examined. Agree with above nurse practitioner note. Persistent bilateral pleural effusions with improvement in dyspnea and edema with diuresis. Given his significant effusions with concern for early consolidation we will transfer to [place] for consideration of thoracenteses bilaterally. KRISTIE DAVIS APRN Mar 24, 2017 11:01 KEENAN CORADO MD Mar 24, 2017 17:49
[2017-03-24 11:03] VITALS: BP 121/70
--- NOTE | 2017-03-24 13:04 | PDOC3 ---
Discharge Summary Visit Information Final Diagnosis . Acute diastolic heart failure - continued good diuresis but effusions slightly increased. Recommend continued diuresis, hold coumadin and plan for thoracentesis. 2. Permanent atrial fibrillation - rate controlled 3. Dyslipidemia - controlled 4. Hypertension - controlled on current therapy 5. moderate pulmonary hypertension - OP sleep study as suggested 7. protein malnutrition - consider protein supplement Chronic lower extremity edema. 4. Long-term use of anticoagulants. 5. Supratherapeutic INR. 6. Moderate pulmonary hypertension. 7. Protein malnutrition. 8. MRSA positive. 9. BILATERAL pleural effusions. Problems: Brief Hospital Course Allergies Allergies Coded Allergies Type Severity Reaction Last Updated Verified adhesive tape Allergy Severe Rash 08/23/15 Yes amiodarone Allergy Mild 02/22/17 Yes I S O L A T I O N *CONTACT* Allergy Unknown 03/23/17 Yes Vital Signs Vital Signs Date Time Temp Pulse Resp B/P (MAP) Pulse Ox O2 Delivery O2 Flow Rate FiO2 03/24/17 11:03 97.1 56 20 121/70 (87) 94 Nasal Cannula 2.0 Lab Results Laboratory Tests Test 03/22/17 13:15 03/22/17 13:19 03/23/17 05:39 03/24/17 05:39 Prothrombin Time 38.8 SEC (9.4-11.4) 38.5 SEC (9.4-11.4) 29.4 SEC (9.4-11.4) Prothromb Time International Ratio 3.9 (0.9-1.1) 3.8 (0.9-1.1) 2.9 (0.9-1.1) White Blood Count 5.8 x10^3/uL (4.0-11.0) 4.7 x10^3/uL (4.0-11.0) 4.6 x10^3/uL (4.0-11.0) Red Blood Count 4.17 x10^6/uL (4.30-5.70) 3.78 x10^6/uL (4.30-5.70) 3.87 x10^6/uL (4.30-5.70) Hemoglobin 13.7 g/dL (13.0-17.5) 12.5 g/dL (13.0-17.5) 12.7 g/dL (13.0-17.5) Hematocrit 39.5 % (39.0-53.0) 36.0 % (39.0-53.0) 36.9 % (39.0-53.0) Mean Corpuscular Volume 95 fL (79-100) 95 fL (79-100) 95 fL (79-100) Mean Corpuscular Hemoglobin 33 pg (25-35) 33 pg (25-35) 33 pg (25-35) Mean Corpuscular Hemoglobin Concent 35 g/dL (31-37) 35 g/dL (31-37) 34 g/dL (31-37) Red Cell Distribution Width 14.9 % (11.5-14.5) 14.8 % (11.5-14.5) 15.0 % (11.5-14.5) Platelet Count 199 x10^3/uL (140-400) 151 x10^3/uL (140-400) 154 x10^3/uL (140-400) Neutrophils (%) (Auto) 67 % (31-73) 66 % (31-73) Lymphocytes (%) (Auto) 20 % (24-48) 20 % (24-48) Monocytes (%) (Auto) 9 % (0-9) 11 % (0-9) Eosinophils (%) (Auto) 3 % (0-3) 3 % (0-3) Basophils (%) (Auto) 1 % (0-3) 0 % (0-3) Neutrophils # (Auto) 3.8 x10^3uL (1.8-7.7) 3.1 x10^3uL (1.8-7.7) Lymphocytes # (Auto) 1.1 x10^3/uL (1.0-4.8) 1.0 x10^3/uL (1.0-4.8) Monocytes # (Auto) 0.5 x10^3/uL (0.0-1.1) 0.5 x10^3/uL (0.0-1.1) Eosinophils # (Auto) 0.2 x10^3/uL (0.0-0.7) 0.1 x10^3/uL (0.0-0.7) Basophils # (Auto) 0.1 x10^3/uL (0.0-0.2) 0.0 x10^3/uL (0.0-0.2) Sodium Level 136 mmol/L (136-145) 137 mmol/L (136-145) 138 mmol/L (136-145) Potassium Level 4.0 mmol/L (3.5-5.1) 3.6 mmol/L (3.5-5.1) 4.0 mmol/L (3.5-5.1) Chloride Level 98 mmol/L (98-107) 99 mmol/L (98-107) 98 mmol/L (98-107) Carbon Dioxide Level 39 mmol/L (21-32) 39 mmol/L (21-32) 40 mmol/L (21-32) Anion Gap -1 (6-14) -1 (6-14) 0 (6-14) Blood Urea Nitrogen 27 mg/dL (8-26) 30 mg/dL (8-26) 28 mg/dL (8-26) Creatinine 1.1 mg/dL (0.7-1.3) 1.1 mg/dL (0.7-1.3) 1.0 mg/dL (0.7-1.3) Estimated GFR (Cockcroft-Gault) 64.2 64.2 71.7 BUN/Creatinine Ratio 25 (6-20) 27 (6-20) 28 (6-20) Glucose Level 94 mg/dL (70-99) 90 mg/dL (70-99) 90 mg/dL (70-99) Calcium Level 9.5 mg/dL (8.5-10.1) 8.8 mg/dL (8.5-10.1) 8.8 mg/dL (8.5-10.1) Magnesium Level 1.9 mg/dL (1.8-2.4) 1.7 mg/dL (1.8-2.4) 1.8 mg/dL (1.8-2.4) Total Bilirubin 0.9 mg/dL (0.2-1.0) 0.9 mg/dL (0.2-1.0) 0.9 mg/dL (0.2-1.0) Aspartate Amino Transf (AST/SGOT) 44 U/L (15-37) 38 U/L (15-37) 40 U/L (15-37) Alanine Aminotransferase (ALT/SGPT) 32 U/L (16-63) 27 U/L (16-63) 29 U/L (16-63) Alkaline Phosphatase 172 U/L (46-116) 149 U/L (46-116) 135 U/L (46-116) IL-Vna-C-Type Natriuretic Peptide 6348 pg/mL (0-449) Total Protein 7.1 g/dL (6.4-8.2) 6.1 g/dL (6.4-8.2) 6.3 g/dL (6.4-8.2) Albumin 3.0 g/dL (3.4-5.0) 2.6 g/dL (3.4-5.0) 2.7 g/dL (3.4-5.0) Albumin/Globulin Ratio 0.7 (1.0-1.7) 0.7 (1.0-1.7) 0.8 (1.0-1.7) Brief Hospital Course 82 year old gentleman who was treated by Dr. Luna over the weekend at his nursing facility for a 13-pound weight gain. His Lasix was increased to 80 mg on Wednesday and 80 mg on Wednesday. He did not have much diuresis, but today, he is having a significant amount of diuresis, but because he was also having some intermittent short of breath, was directly admitted for more IV diuresis. He reports edema in the arms as well as up past the knee. He was diuresed and had a 13 pound weight loss. His coumadin was held due to high INR. He was seen by PT and OT. However he had worsening pleural effusions that were in need of thoracentesis so he was transferred to [facility] for a higher level of care. He was seen by PT and OT. r. Discharge Information Condition at Discharge: Stable Disposition/Orders: D/C to Another Facility Dischare Medications Current Medications Furosemide (Lasix) 40 mg DAILY IVP Last administered on 03/24/17 08:35; Start 03/22/17 at 11:30; Stop 03/24/17 at 12:32; Status DC Furosemide (Lasix) 20 mg 1X ONCE IVP Last administered on 03/22/17 15:53; Start 03/22/17 at 15:45; Stop 03/22/17 at 15:46; Status DC Triamcinolone Acetonide (Aristocort) 1 jhony DAILY TP Last administered on 09:55; Start 03/22/17 at 16:30; Stop 03/24/17 at 12:32; Status DC Acetaminophen (Tylenol) 650 mg PRN Q6HRS PRN PO PAIN/TEMP Last administered on 03/22/17 23:45; Start 03/22/17 at 16:15; Stop 03/24/17 at 12:32; Status DC Aspirin (Aspirin Enteric Coated) 81 mg HS PO Last administered on 03/23/17 20 :32; Start 03/22/17 at 21:00; Stop 03/24/17 at 12:32; Status DC Calcium/Vitamin D (Oscal D 500mg/ 200uts) 1 tab DAILY PO Last administered on 03/24/17 08:33; Start 03/23/17 at 09:00; Stop 03/24/17 at 12:32; Status DC Fenofibrate (Tricor) 145 mg HS PO Last administered on 03/23/17 20:32; Start 03/22/17 at 21:00; Stop 03/24/17 at 12:32; Status DC Sertraline HCl (Zoloft) 25 mg HS PO Last administered on 03/23/17 20:32; Start 03/22/17 at 21:00; Stop 03/24/17 at 12:32; Status DC Tamsulosin HCl (Flomax) 0.4 mg HS PO Last administered on 03/23/17 20:32; Start 03/22/17 at 21:00; Stop 03/24/17 at 12:32; Status DC Warfarin Sodium (Coumadin) 1.5 mg QODAY@1600 PO ; Start 03/23/17 at 16:00; Stop 03/23/17 at 16:00; Status DC Warfarin Sodium (Coumadin) 2 mg QODAY@1600 PO ; Start 03/24/17 at 16:00; Stop 03/24/17 at 16:00; Status DC Non-Formulary Medication 1,000 mg DAILY PO ; Start 03/23/17 at 09:00; Stop at 09:00; Status DC Cetirizine HCl (ZyrTEC) 10 mg DAILY PO Last administered on 03/24/17 08:34; Start 03/23/17 at 09:00; Stop 03/24/17 at 12:32; Status DC Losartan Potassium (Cozaar) 100 mg DAILY PO ; Start 03/23/17 at 09:00; Stop at 09:00; Status DC Metoprolol Succinate (Toprol Xl) 200 mg DAILY PO ; Start 03/23/17 at 09:00; Stop 03/23/17 at 09:00; Status DC Fish Oil (Fish Oil) 2,000 mg DAILY PO Last administered on 03/24/17 08:33; Start 03/23/17 at 09:00; Stop 03/24/17 at 12:32; Status DC Potassium Chloride (Klor-Con) 10 meq DAILYWBKFT PO Last administered on 08:34; Start 03/23/17 at 08:00; Stop 03/24/17 at 12:32; Status DC Vitamin E 400 unit DAILY PO Last administered on 03/24/17 08:33; Start 03/23 at 09:00; Stop 03/24/17 at 12:32; Status DC Warfarin Sodium (Coumadin Per Pharmacy) 1 each PRN DAILY PRN MC SEE COMMENTS Last administered on 03/24/17 09:05; Start 03/22/17 at 16:45; Stop 03/24/17 at 12:32; Status DC Warfarin Sodium (Coumadin - No Dose Today) 1 each 1X WARF ONCE MC ; Start at 17:15; Stop 03/22/17 at 17:16; Status DC Losartan Potassium (Cozaar) 50 mg DAILY PO Last administered on 03/24/17 08: 34; Start 03/23/17 at 09:00; Stop 03/24/17 at 12:32; Status DC Metoprolol Succinate (Toprol Xl) 100 mg DAILY PO Last administered on 08:34; Start 03/23/17 at 09:00; Stop 03/24/17 at 12:32; Status DC Potassium Chloride (Klor-Con) 30 meq 1X ONCE PO Last administered on 09:43; Start 03/23/17 at 09:30; Stop 03/23/17 at 09:34; Status DC Warfarin Sodium (Coumadin - No Dose Today) 1 each 1X WARF ONCE MC ; Start at 16:00; Stop 03/23/17 at 16:01; Status DC Warfarin Sodium (Coumadin) 2 mg 1X WARF ONCE PO ; Start 03/24/17 at 16:00; Stop 03/24/17 at 16:00; Status DC Active Scripts Active Reported Triamcinolone Acetonide 15 Gm Cream..g. 1 Jhony TP DAILY apply to LE bilateral TP every day shift. Cleanse, apply cream, xeroform gauze. Then dry dressing, roll gauze. Compression dressing. Tamsulosin Hcl 0.4 Mg Cap.er.24h 1 Cap PO HS Tylenol (Acetaminophen) 325 Mg Tablet 2 Tab PO PRN Q6HRS Zoloft (Sertraline Hcl) 25 Mg Tablet 1 Tab PO HS Cozaar (Losartan Potassium) 100 Mg Tablet 100 Mg PO HS Coumadin (Warfarin Sodium) 1 Mg Tablet 1.5 Tab PO QODAY 1.5 MG Every Wed, Wed, , Wed Coumadin (Warfarin Sodium) 1 Mg Tablet 2 Mg PO QODAY 2mg due Wednesday, Wed, Wed Potassium Chloride 10 Meq Capsule.er 1 Cap PO DAILY LAST DOSE GIVEN: DATE: TODAY TIME: AM NEXT DOSE DUE: DATE: TOMORROW TIME: AM Vitamin E (Vitamin E Acetate) 400 Unit Capsule 400 Unit PO DAILY NEXT DOSE DUE: DATE: RESTART TODAY TIME: WHEN YOU GET HOME NEXT DOSE DUE: DATE: RESTART TODAY TIME: WHEN YOU GET HOME Fenofibrate (Fenofibrate Nanocrystallized) 145 Mg Tablet 1 Tab PO HS LAST DOSE GIVEN: DATE: YESTERDAY TIME: AT BEDTIME NEXT DOSE DUE: DATE: TODAY TIME: AT BEDTIME Calcium 500 + Vit D 200 Tablet (Calcium Carbonate/Vitamin D3) 1 Each Tablet 1 Each PO DAILY LAST DOSE GIVEN: DATE: TODAY TIME: AM NEXT DOSE DUE: DATE: TOMORROW TIME: AM Loratadine 10 Mg Tablet 1 Tab PO DAILY LAST DOSE GIVEN: DATE: TODAY TIME: AM NEXT DOSE DUE: DATE: TOMORROW TIME: AM Aspir 81 (Aspirin) 81 Mg Tablet.dr 81 Mg PO HS LAST DOSE GIVEN: DATE: TODAY TIME: AM NEXT DOSE DUE: DATE: TOMORROW TIME: AM Flax Seed Oil (Flaxseed Oil) 1,000 Mg Capsule 1,000 Mg PO DAILY NEXT DOSE DUE: DATE: RESTART TODAY TIME: WHEN YOU GET HOME NEXT DOSE DUE: DATE: RESTART TODAY TIME: WHEN YOU GET HOME Fish Oil Softgel (Venus-3 Fatty Acids/Fish Oil) 1 Each Capsule 2 Each PO DAILY LAST DOSE GIVEN: DATE: TIME: AM NEXT DOSE DUE: DATE: TODAY TIME: PM Furosemide 20 Mg Tablet 40 Mg PO DAILY LAST DOSE GIVEN: DATE: Today TIME: AM NEXT DOSE DUE: DATE: [place] TIME: AM TIME: PM THEN TAKE 40 MG ONCE DAILY STARTING Wednesday Metoprolol Succinate ( Xl ) (Metoprolol Succinate) 200 Mg Tab.er.24h 200 Mg PO DAILY LAST DOSE GIVEN: DATE: YESTER TIME: AT BEDTIME NEXT DOSE DUE: DATE: TODAY TIME: AT BEDTIME Patient Instructions Patient Instuctions Discharge to [facility] for thoracentesis. DOMINGO REDMAN DO Mar 24, 2017 13:04
[2017-03-24] MEDS ORDERED: WARFARIN 2 MG TABLET. PO SCH (16:00)
[2017-03-24] MEDS ORDERED: WARFARIN 2 MG TABLET. PO ONE (16:00)
== END 2017-03-24 12:25 | disposition short-term general hospital (02) | DRG 292 ==
LOC: ICU 10:58
PROVIDERS: ADMIT Family Medicine; ATTEND Family Medicine
DX: I11.0 Hypertensive heart disease with heart failure (principal); J90 Pleural effusion, not elsewhere classified; E46 Unspecified protein-calorie malnutrition; I27.20 Pulmonary hypertension, unspecified; I48.2 Chronic atrial fibrillation; B95.62 Methicillin resistant Staphylococcus aureus infection as the cause of diseases classified elsewhere; E78.5 Hyperlipidemia, unspecified; I25.10 Atherosclerotic heart disease of native coronary artery without angina pectoris; I89.0 Lymphedema, not elsewhere classified; I50.31 Acute diastolic (congestive) heart failure; R60.0 Localized edema; Z68.30 Body mass index [BMI] 30.0-30.9, adult; Z79.01 Long term (current) use of anticoagulants; Z79.899 Other long term (current) drug therapy; Z88.8 Allergy status to other drugs, medicaments and biological substances
CPT/HCPCS: 36415; 71010; 71020; 80053; 81001; 83735; 83880; 85025; 85027; 85610; 87086; 87641; 93308; 93320; 93325; J1940

== ENCOUNTER 2017-10-06 16:16 | Inpatient (IN) | payer BC, MEDICARE ==
[~2017-10-06] VITALS: Ht 172.7 cm; Wt 81.2 kg
[~2017-10-06 16:16] MED LIST changes: +ACET325T9 PO; -FENO145T2 PO; +FENO145T30 PO; +LOSA100T2 PO; -METF500T4 PO; +METF500T5 PO; +METO200T46 PO; -METO200T5 PO; +SERT25TA PO; +TAMS0.4C2 PO; +TRIA15CR50 TP; +WARF1TAB69 PO; -WARF1TAB7 PO; -WARF2TAB7 PO; +WARF2TAB96 PO
--- NOTE | 2017-10-06 17:16 | EKG ---
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
--- NOTE | 2017-10-06 17:23 | RAD ---
PORTABLE CHEST 1V History: SHORT OF BREATH Comparison: March 24, 2017 Findings: Single view of the chest is submitted. Single view chest HISTORY: Shortness of breath COMPARISON: March 24, 2017 FINDINGS: Prominence of the mediastinal silhouette is stable. Pericardial cardiac silhouette is unchanged. There are low lung volumes. There is unchanged mild blunting of the right costophrenic sulcus and also right base opacity similar. There is improved aeration left lung base. There is no pneumothorax or significant left pleural fluid. There is interstitial opacity bilaterally although present previously. There is atherosclerotic calcification greater near aortic arch. Impression: 1. Radiographic findings are similar comparing with March 2017 exam other than improved aeration left lung base. There again may be small chronic right pleural effusion or pleural parenchymal fibrotic change, other opacity at the right lung base present previously. There is mild interstitial opacity as seen previously, component of mild interstitial edema or interstitial infiltrate not excluded. Electronically signed by: Chivo Sherman MD (10/06/2017 5:20 PM) [id number]
--- NOTE | 2017-10-06 17:50 | PHYS DOC ---
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 Patient stated he gained 40 pounds during the last 3 months and had increasing exertional shortness of breath without chest pain and palpitation and recommended hospitalization for IV Lasix. Review of Systems Review of Systems Constitutional: Denies fever or chills [] Eyes: Denies change in visual acuity, redness, or eye pain [] HENT: Denies nasal congestion or sore throat [] Respiratory: Reports exertional shortness of breath [] Cardiovascular: No additional information not addressed in HPI [] GI: Denies abdominal pain, nausea, vomiting, bloody stools or diarrhea [] : Denies dysuria or hematuria [] Musculoskeletal: Denies back pain or joint pain [] Integument: Denies rash or skin lesions [] Neurologic: Denies headache, focal weakness or sensory changes [] Endocrine: Denies polyuria or polydipsia [] All other systems were reviewed and found to be within normal limits, except as documented in this note. Allergies Allergies Allergies Coded Allergies Type Severity Reaction Last Updated Verified adhesive tape Allergy Severe Rash 08/23/15 Yes amiodarone Allergy Mild 02/22/17 Yes I S O L A T I O N *CONTACT* Allergy Unknown 03/23/17 Yes Physical Exam Physical Exam Constitutional: Well developed, well nourished, mild distress, non-toxic appearance. [] HENT: Normocephalic, atraumatic, oropharynx moist, no oral exudates, nose normal. [] Eyes: PERRLA, EOMI, conjunctiva normal, no discharge. [] Neck: Normal range of motion, no tenderness, supple, no stridor. [] Cardiovascular: Irregularly irregular, no murmur [] Lungs & Thorax: Bilateral basilar rales Abdomen: Bowel sounds normal, soft, no tenderness, no masses, no pulsatile masses. [] Skin: Warm, dry, no erythema, no rash. [] Back: No tenderness, no CVA tenderness. [] Extremities: No tenderness, no cyanosis, no clubbing, ROM intact, 1+ lower extremity edema. [] Neurologic: Alert and oriented X 3, normal motor function, normal sensory function, no focal deficits noted. [] Psychologic: Affect normal, judgement normal, mood normal. [] EKG EKG EKG interpreted by me. EKG at 1638 showed atrial fibrillation with rate of 88, RVH with repolarization abnormalities, Q waves in septal Jazmine, no acute ST and T wave abnormalities[] Radiology/Procedures Radiology/Procedures [][address] [place] [id number] IMAGING REPORT Signed PATIENT: ALFREDO SHAH ACCOUNT: [id number] : 1935 LOCATION: ER AGE: 82 SEX: M EXAM STATUS: REG ER ORD. PHYSICIAN: JANAK REHMAN MD REASON: SOB PROCEDURE: PORTABLE CHEST 1V PORTABLE CHEST 1V History: SHORT OF BREATH Comparison: March 24, 2017 Findings: Single view of the chest is submitted. Single view chest HISTORY: Shortness of breath COMPARISON: March 24, 2017 FINDINGS: Prominence of the mediastinal silhouette is stable. Pericardial cardiac silhouette is unchanged. There are low lung volumes. There is unchanged mild blunting of the right costophrenic sulcus and also right base opacity similar. There is improved aeration left lung base. There is no pneumothorax or significant left pleural fluid. There is interstitial opacity bilaterally although present previously. There is atherosclerotic calcification greater near aortic arch. Impression: 1. Radiographic findings are similar comparing with March 2017 exam other than improved aeration left lung base. There again may be small chronic right pleural effusion or pleural parenchymal fibrotic change, other opacity at the right lung base present previously. There is mild interstitial opacity as seen previously, component of mild interstitial edema or interstitial infiltrate not excluded. Electronically signed by: Daisha Sherman MD (10/06/2017 5:20 PM) [id number] DICTATED AND SIGNED BY: DAISHA SHERMAN MD DATE: 10/06/17 5014 CC: JESSICA BARILLAS MD; JANAK REHMAN MD ~ Course & Med Decision Making Course & Med Decision Making Pertinent Labs and Imaging studies reviewed. (See chart for details) []Evaluation of patient in ER showed 82-year-old male patient sent from his commercial drone pilot for CHF exacerbation treatment. Patient had elevation of BNP and INR of 3.9 with history of atrial fibrillation. Patient had indwelling Enriquez catheter. Dr. Cochran informed at 1745 and agreed with plan of admission. Dragon Disclaimer Dragon Disclaimer This electronic medical record was generated, in whole or in part, using a voice recognition dictation system. Departure Departure: Impression: Primary Impression: Acute exacerbation of CHF (congestive heart failure) Additional Impressions: A-fib Chronic renal insufficiency UTI (urinary tract infection) due to urinary indwelling Enriquez catheter Hypercoagulable state Disposition: 09 ADMITTED INPATIENT (At 1743) Admitting Physician: Soheila Cochran Condition: STABLE Referrals: JESSICA BARILLAS MD (PCP) Problem Qualifiers JANAK REHMAN MD October 06, 2017 17:50
[2017-10-06 17:58] LABS: BASO # 0.1 x10^3/uL (0.0-0.2); BASO % 1 % (0-3); EOS # 0.4 x10^3/uL (0.0-0.7); EOS % 4 % (0-3); HEMATOCRIT 39.4 % (39.0-53.0); HEMOGLOBIN 13.3 g/dL (13.0-17.5); LYMPH # 0.9 x10^3/uL (1.0-4.8); LYMPH % 9 % (24-48); MEAN CORPUSCULAR HEMOGLOBIN 32 pg (25-35); MEAN CORPUSCULAR HGB CONC 34 g/dL (31-37); MEAN CORPUSCULAR VOLUME 95 fL (79-100); MONO % 10 % (0-9); NEUT # 7.7 x10^3uL (1.8-7.7); NEUT % 77 % (31-73); PLATELET COUNT 168 x10^3/uL (140-400); RED BLOOD COUNT 4.14 x10^6/uL (4.30-5.70); RED CELL DISTRIBUTION WIDTH 15.4 % (11.5-14.5)
[2017-10-06] MEDS ORDERED: FUROSEMIDE 40 MG/4 ML VIAL IVP ONE (18:15)
[2017-10-06 18:19] LABS: ALBUMIN 2.6 g/dL (3.4-5.0); ALBUMIN/GLOBULIN RATIO 0.6 (1.0-1.7); CALCIUM 8.8 mg/dL (8.5-10.1); CREATININE 0.8 mg/dL (0.7-1.3); GFR 92.8; POTASSIUM 3.7 mmol/L (3.5-5.1); TOTAL BILIRUBIN 0.9 mg/dL (0.2-1.0); TOTAL PROTEIN 6.9 g/dL (6.4-8.2)
[2017-10-06 19:09] LABS: BACTERIA,URINE MOD /HPF (0-FEW); BILIRUBIN,URINE NEG (NEG); CLARITY,URINE HAZY; COLOR,URINE STRAW; GLUCOSE,URINE NEG (NEG); NITRITE,URINE NEG (NEG); SQUAMOUS EPITHELIAL CELL,UR FEW /LPF; UROBILINOGEN,URINE 0.2 mg/dL (0.2 mg/dL)
[2017-10-06 19:28] VITALS: BP 153/91
[2017-10-06] MEDS ORDERED: MORPHINE SULFATE 4 MG/ML DISP.SYRIN. IV PRN (19:30)
[2017-10-06 20:15] VITALS: BP 171/91
[2017-10-06 21:55] VITALS: BP 120/70
[2017-10-06 22:15] VITALS: BP 165/87
[2017-10-06 23:16] VITALS: BP 153/76
[2017-10-07] VITALS (14 sets, daily range): BP systolic 113–155; BP diastolic 68–100
[2017-10-07] MEDS: NITROGLYCERIN OINT 1 GM PACKET. TP SCH ×3 (00:12→12:00)
[2017-10-07 10:47] LABS: CALCIUM 8.5 mg/dL (8.5-10.1); CREATININE 0.9 mg/dL (0.7-1.3); POTASSIUM 3.2 mmol/L (3.5-5.1)
--- NOTE | 2017-10-07 12:11 | PDOC ---
PROGRESS NOTES Diagnosis Problem Problems Medical Problems: (1) A-fib Status: Acute (2) Acute exacerbation of CHF (congestive heart failure) Status: Acute (3) Chronic renal insufficiency Status: Acute Assessment Problems Medical Problems: (1) A-fib Status: Acute (2) Acute exacerbation of CHF (congestive heart failure) Status: Acute (3) Chronic renal insufficiency Status: Acute 1. Acute on chronic diastolic heart failure - diuresing well over night. Renal function remains WNL by am labs. Will replace potassium and add IV lasix again today. Resume home medications 2. persistent afib - on warfarin and metoprolol 3. CKD - Cr stable. Problems: Subjective feeling better but remains still short of breath above baseline. Still having edema. No chest pain, palpitations, lightheadedness. Objective Vital Signs Date Time Temp Pulse Resp B/P (MAP) Pulse Ox O2 Delivery O2 Flow Rate FiO2 10/07/17 08:00 Nasal Cannula 2.0 10/07/17 06:05 97.7 80 32 133/74 (93) 96 Intake and Output 10/07/17 07:00 Intake Total 1760 ml Output Total 2300 ml Balance -540 ml Intake Oral 1760 ml Output Urine Total 2300 ml Stool Total 0 ml Abdomen: Normal bowel sounds, Soft Heart: Normal S1, Normal S2 Extremities: Other (+2-3 edema) General: Alert, Oriented X3, Cooperative, mild distress Lungs: Other (bibasilar crackles) Neuro: Normal speech, Strength at 5/5 X4 ext Psych/Mental Status: Mental status NL, Mood NL Review of Relevant I have reviewed the following items constantin (where applicable) has been applied. Labs Laboratory Tests Test 10/06/17 17:25 10/06/17 18:38 10/06/17 20:17 10/07/17 10:35 White Blood Count 10.0 x10^3/uL (4.0-11.0) Red Blood Count 4.14 x10^6/uL (4.30-5.70) Hemoglobin 13.3 g/dL (13.0-17.5) Hematocrit 39.4 % (39.0-53.0) Mean Corpuscular Volume 95 fL (79-100) Mean Corpuscular Hemoglobin 32 pg (25-35) Mean Corpuscular Hemoglobin Concent 34 g/dL (31-37) Red Cell Distribution Width 15.4 % (11.5-14.5) Platelet Count 168 x10^3/uL (140-400) Neutrophils (%) (Auto) 77 % (31-73) Lymphocytes (%) (Auto) 9 % (24-48) Monocytes (%) (Auto) 10 % (0-9) Eosinophils (%) (Auto) 4 % (0-3) Basophils (%) (Auto) 1 % (0-3) Neutrophils # (Auto) 7.7 x10^3uL (1.8-7.7) Lymphocytes # (Auto) 0.9 x10^3/uL (1.0-4.8) Monocytes # (Auto) 1.0 x10^3/uL (0.0-1.1) Eosinophils # (Auto) 0.4 x10^3/uL (0.0-0.7) Basophils # (Auto) 0.1 x10^3/uL (0.0-0.2) Prothrombin Time 38.7 SEC (9.4-11.4) Prothromb Time International Ratio 3.9 (0.9-1.1) Sodium Level 141 mmol/L (136-145) 141 mmol/L (136-145) Potassium Level 3.7 mmol/L (3.5-5.1) 3.2 mmol/L (3.5-5.1) Chloride Level 102 mmol/L (98-107) 104 mmol/L (98-107) Carbon Dioxide Level 36 mmol/L (21-32) 36 mmol/L (21-32) Anion Gap 3 (6-14) 1 (6-14) Blood Urea Nitrogen 23 mg/dL (8-26) 21 mg/dL (8-26) Creatinine 0.8 mg/dL (0.7-1.3) 0.9 mg/dL (0.7-1.3) Estimated GFR (Cockcroft-Gault) 92.8 81.0 BUN/Creatinine Ratio 29 (6-20) Glucose Level 80 mg/dL (70-99) 122 mg/dL (70-99) Calcium Level 8.8 mg/dL (8.5-10.1) 8.5 mg/dL (8.5-10.1) Total Bilirubin 0.9 mg/dL (0.2-1.0) Aspartate Amino Transf (AST/SGOT) 51 U/L (15-37) Alanine Aminotransferase (ALT/SGPT) 43 U/L (16-63) Alkaline Phosphatase 278 U/L (46-116) Creatine Kinase 52 U/L (39-308) Creatine Kinase MB (Mass) 2.0 ng/mL (0.0-3.6) Creatine Kinase MB Relative Index 3.8 % (0-4) Troponin I Quantitative 0.040 ng/mL (0-0.055) CK-Toi-X-Type Natriuretic Peptide 2010 pg/mL (0-449) Total Protein 6.9 g/dL (6.4-8.2) Albumin 2.6 g/dL (3.4-5.0) Albumin/Globulin Ratio 0.6 (1.0-1.7) Urine Collection Type U cath Urine Color Straw Urine Clarity Hazy Urine pH 6.5 Urine Specific [place] 1.015 Urine Protein Neg (NEG-TRACE) Urine Glucose (UA) Neg mg/dL (NEG) Urine Ketones (Stick) Neg mg/dL (NEG) Urine Blood Small (NEG) Urine Nitrite Neg (NEG) Urine Bilirubin Neg (NEG) Urine Urobilinogen Dipstick 0.2 mg/dL (0.2 mg/dL) Urine Leukocyte Esterase Large (NEG) Urine RBC 6-10 /HPF (0-2) Urine WBC 11-20 /HPF (0-4) Urine Squamous Epithelial Cells Few /LPF Urine Bacteria Mod /HPF (0-FEW) Urine Mucus Slight /LPF Glucose (Fingerstick) 73 mg/dL (70-99) Medications Current Medications Furosemide (Lasix) 40 mg 1X ONCE IVP Last administered on 10/06/17at 18:21; Start 10/06/17 at 18:15; Stop 10/06/17 at 18:16; Status DC Nitroglycerin (Nitro-Bid Oint) 0.25 inch Q6HRS TP Last administered on at 05:56; Start 10/07/17 at 00:00 Morphine Sulfate (Morphine 4mg Syringe) 2 mg PRN Q2HR PRN IV PAIN; Start at 19:30 Potassium Chloride (Klor-Con) 40 meq 1X ONCE PO ; Start 10/07/17 at 12:15; Stop 10/07/17 at 12:16; Status UNV Furosemide (Lasix) 40 mg 1X ONCE IVP ; Start 10/07/17 at 12:15; Stop 10/07/17 at 12:16; Status UNV Aspirin (Aspirin Enteric Coated) 81 mg HS PO ; Start 10/07/17 at 21:00; Status UNV Fenofibrate (Tricor) 145 mg HS PO ; Start 10/07/17 at 21:00; Status UNV Tamsulosin HCl (Flomax) 0.4 mg HS PO ; Start 10/07/17 at 21:00; Status UNV Warfarin Sodium (Coumadin) 1.5 mg QODAY PO ; Start 10/09/17 at 09:00; Status UNV Warfarin Sodium (Coumadin) 2 mg QODAY PO ; Start 10/09/17 at 09:00; Status UNV Non-Formulary Medication (Losartan Potassium (Cozaar)) 100 mg HS PO ; Start 10/07 at 21:00; Status UNV Non-Formulary Medication (Metoprolol Succinate (Metoprolol Succinate ( Xl ))) 200 mg DAILY PO ; Start 10/08/17 at 09:00; Status UNV Active Scripts Active Reported Triamcinolone Acetonide 15 Gm Cream..g. 1 Jhony TP DAILY apply to LE bilateral TP every day shift. Cleanse, apply cream, xeroform gauze. Then dry dressing, roll gauze. Compression dressing. Tamsulosin Hcl 0.4 Mg Cap.er.24h 1 Cap PO HS Tylenol (Acetaminophen) 325 Mg Tablet 2 Tab PO PRN Q6HRS Zoloft (Sertraline Hcl) 25 Mg Tablet 1 Tab PO HS Cozaar (Losartan Potassium) 100 Mg Tablet 100 Mg PO HS Coumadin (Warfarin Sodium) 1 Mg Tablet 1.5 Tab PO QODAY 1.5 MG Every Wed, Wed, , Wed Coumadin (Warfarin Sodium) 1 Mg Tablet 2 Mg PO QODAY 2mg due Wednesday, Wed, Wed Potassium Chloride 10 Meq Capsule.er 1 Cap PO DAILY LAST DOSE GIVEN: DATE: TODAY TIME: AM NEXT DOSE DUE: DATE: TOMORROW TIME: AM Vitamin E (Vitamin E Acetate) 400 Unit Capsule 400 Unit PO DAILY NEXT DOSE DUE: DATE: RESTART TODAY TIME: WHEN YOU GET HOME NEXT DOSE DUE: DATE: RESTART TODAY TIME: WHEN YOU GET HOME Fenofibrate (Fenofibrate Nanocrystallized) 145 Mg Tablet 1 Tab PO HS LAST DOSE GIVEN: DATE: YESTERDAY TIME: AT BEDTIME NEXT DOSE DUE: DATE: TODAY TIME: AT BEDTIME Calcium 500 + Vit D 200 Tablet (Calcium Carbonate/Vitamin D3) 1 Each Tablet 1 Each PO DAILY LAST DOSE GIVEN: DATE: TIME: AM NEXT DOSE DUE: DATE: TOMORROW TIME: AM Loratadine 10 Mg Tablet 1 Tab PO DAILY LAST DOSE GIVEN: DATE: TODAY TIME: AM NEXT DOSE DUE: DATE: TOMORROW TIME: AM Aspir 81 (Aspirin) 81 Mg Tablet.dr 81 Mg PO HS LAST DOSE GIVEN: DATE: TIME: AM NEXT DOSE DUE: DATE: TOMORROW TIME: AM Flax Seed Oil (Flaxseed Oil) 1,000 Mg Capsule 1,000 Mg PO DAILY NEXT DOSE DUE: DATE: RESTART TODAY TIME: WHEN YOU GET HOME NEXT DOSE DUE: DATE: RESTART TODAY TIME: WHEN YOU GET HOME Fish Oil Softgel (Cana-3 Fatty Acids/Fish Oil) 1 Each Capsule 2 Each PO DAILY LAST DOSE GIVEN: DATE: TODAY TIME: AM NEXT DOSE DUE: DATE: TODAY TIME: PM Furosemide 20 Mg Tablet 40 Mg PO DAILY LAST DOSE GIVEN: DATE: Today TIME: AM NEXT DOSE DUE: DATE: Tomorr TIME: AM TIME: PM THEN TAKE 40 MG ONCE DAILY STARTING Wednesday Metoprolol Succinate ( Xl ) (Metoprolol Succinate) 200 Mg Tab.er.24h 200 Mg PO DAILY LAST DOSE GIVEN: DATE: YESTER TIME: AT BEDTIME NEXT DOSE DUE: DATE: TODAY TIME: AT BEDTIME Vitals/I & O Vital Sign - Last 24 Hours 10/06/17 10/06/17 10/06/17 10/06/17 16:16 18:29 19:28 20:00 Temp 98.1 98.2 Pulse 82 100 110 Resp 20 25 26 B/P (MAP) 158/87 (110) 153/91 (111) Pulse Ox 97 97 93 O2 Delivery Nasal Cannula Nasal Cannula Nasal Cannula Nasal Cannula O2 Flow Rate 2.0 2.0 2.0 2.0 10/06/17 10/06/17 10/06/17 10/06/17 20:15 21:55 22:15 23:16 Pulse 117 96 96 93 Resp 8 9 10 30 B/P (MAP) 171/91 (117) 120/70 (87) 165/87 (113) 153/76 (101) Pulse Ox 94 97 96 O2 Delivery Nasal Cannula Nasal Cannula Nasal Cannula Nasal Cannula O2 Flow Rate 2.0 2.0 98.0 2.0 10/06/17 10/07/17 10/07/17 10/07/17 23:59 00:12 00:15 01:15 Pulse 93 112 107 Resp 31 28 B/P (MAP) 153/76 140/72 (94) 136/69 (91) Pulse Ox 94 92 O2 Delivery Nasal Cannula Nasal Cannula Nasal Cannula O2 Flow Rate 2.0 2.0 2.0 10/07/17 10/07/17 10/07/17 10/07/17 02:36 03:15 04:00 04:27 Pulse 89 94 100 Resp 27 30 30 B/P (MAP) 133/70 (91) 140/73 (95) 140/73 (95) Pulse Ox 97 95 93 O2 Delivery Nasal Cannula Nasal Cannula Nasal Cannula Nasal Cannula O2 Flow Rate 2.0 2.0 2.0 2.0 10/07/17 10/07/17 10/07/17 05:56 06:05 08:00 Temp 97.7 Pulse 100 80 Resp 32 B/P (MAP) 140/73 133/74 (93) Pulse Ox 96 O2 Delivery Nasal Cannula Nasal Cannula O2 Flow Rate 2.0 2.0 Intake and Output 10/06/17 10/06/17 10/07/17 15:00 23:00 07:00 Intake Total 980 ml 780 ml Output Total 1000 ml 1300 ml Balance -20 ml -520 ml KRISTIE DAVIS DOPE POURER October 07, 2017 12:11
[2017-10-07] MEDS ORDERED: POTASSIUM CHLORIDE 20 MEQ TABLET.ER. PO ONE (12:15)
[2017-10-07] MEDS ORDERED: FUROSEMIDE 40 MG/4 ML VIAL IVP ONE ×2 (12:15→13:30)
[2017-10-07] MEDS ORDERED: ANTI-COAG MONITOR BY PHARMACY. MC PRN (12:15)
[2017-10-07] MEDS ORDERED: PHENAZOPYRIDINE 100 MG TABLET. PO PRN (13:00)
--- NOTE | 2017-10-07 13:30 | HP ---
ADMIT DATE: 10/07/2017 HISTORY OF PRESENT ILLNESS: The patient is an 82-year-old male patient, who apparently was on hospice and who apparently has been progressively gaining weight despite intermittent treatment with diuretics and apparently has gained about 40 pounds over the last 4 months. He denied any shortness of breath at rest, but stated that he is very short of breath on exertion. He also complained of pain in his knees and shoulders and apparently has been using ibuprofen, which is probably the reason why he is retaining a lot of fluid. However, denied any chest pain. 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 PAST MEDICAL HISTORY: Significant for congestive heart failure, likely due to left ventricular systolic dysfunction, chronic atrial fibrillation, coronary artery disease, hypertension, hyperlipidemia, chronic lower extremity edema, bilateral osteoarthritis both knees and shoulders. FAMILY HISTORY: Noncontributory. SOCIAL HISTORY: He is and lives with his . He denied any alcohol, tobacco or illicit drug use. ALLERGIES: He is allergic to ADHESIVE TAPE. MEDICATIONS: He is currently on following medications: He is on loratadine 10 mg once a day, tamsulosin 0.4 mg extended release 1 capsule at bedtime, Coumadin 2 mg every other day, Coumadin 1-1/2 tablet 1.5 mg on Wednesday, Wednesday, , Wednesday. He is on fenofibrate 145 mg once a day, omega 3 fatty acid 2 capsules daily, metoprolol succinate 200 mg once a day, losartan potassium 100 mg at bedtime, aspirin 81 mg once a day, acetaminophen for Tylenol 650 mg every 6 hours, sertraline for Zoloft 25 mg once a day, calcium carbonate with vitamin D3 one tablet daily. He is on potassium chloride 10 mEq daily, furosemide 40 mg daily and triamcinolone acetonide applied topically daily. He is on vitamin E acetate 400 units daily, flaxseed oil 1000 mg 1 p.o. daily. PHYSICAL EXAMINATION: GENERAL: On arrival to the hospital, the patient was somewhat pale, but no jaundice or cyanosis. No lymphadenopathy, no thyromegaly. No jugular venous distention. Bilateral edema and generalized anasarca. The soft tissue swelling all the way to the sacral area. VITAL SIGNS: His heart rate was 82, blood pressure was 158/87, temperature was 98.1, respiratory 25, and oxygen saturation was 97% on 2 liters of oxygen. HEAD, EYES, EARS, NOSE AND THROAT: Showed normocephalic, atraumatic. NECK: Supple. HEART: Showed normal first and second sounds. No gallop, rub or murmur. CHEST: Clear to auscultation. No crepitation or rhonchi. ABDOMEN: Distended, soft, nontender. No guarding or rigidity. No organomegaly. All hernial orifice intact. Bowel sounds normal. NEUROLOGIC: He is awake, alert, responding appropriately. Cranial nerves intact. EXTREMITIES: He moves extremities without difficulty; however, he is mostly bedbound, chair bound. LABORATORY DATA: Showed a white cell count 10,000, hemoglobin 13, hematocrit 39, MCV 95, and platelet count of 168,000. His chemistry showed a serum sodium 141, potassium 3.7, chloride 102, bicarbonate 36, anion gap of 3, BUN 23, creatinine 0.8, estimated GFR was 93 mL per minute. His glucose was 80, calcium was 8.8. Total bilirubin, AST, ALT were normal. Alkaline phosphatase slightly elevated. His beta natriuretic peptide was 2000. His troponin I was less than 0.040. Total protein was 6.9, albumin was 2.6. His prothrombin time was 38.7, INR 3.9. His urinalysis showed the urine was straw colored, hazy with a pH of 6.5 gravity 1015. The urine was negative for protein, glucose, ketones and there was small amount of blood, negative for nitrite and total bilirubin. There is large amount of leukocyte esterase. There is 6-10 rbc's, 11-20 wbc's, moderate amount of bacteria. Did have a chest x-ray, which showed that there is radiographic finding are similar compared with 03/2017 exam other than improved aeration of left lung base. There again be more chronic right pleural effusion or pleural parenchymal fibrotic changes other opacity at the right lung base present previously. There is mild interstitial opacity is seen previously component of mild edema, interstitial infiltrate not excluded. ASSESSMENT: The patient has a Enriquez catheter and he was continued on all of his medication and was given Lasix 40 mg IV and was continued on his other medication. We added morphine and nitroglycerin patch to the floor, his heart and will follow him closely and decide on further management accordingly. The patient was admitted with acute on chronic diastolic congestive heart failure, likely due to diet indiscretion and also the fact that he has been using ibuprofen for the pain in his shoulders and his knee joints. DICK FORBES MD DR: GRAHAM/rodolfo JOB#: [id number] / [id number]
[2017-10-07] MEDS: POTASSIUM CHLORIDE 20 MEQ TABLET.ER. PO SCH ×2 (13:43→21:29)
[2017-10-07] MEDS ORDERED: LIDOCAINE (700MG/PATCH) PATCH. TD SCH (13:50)
[2017-10-07] MEDS: cefTRIAXone IV Push 1 GM VIAL. IVP SCH (14:01)
[2017-10-07] MEDS: LIDOCAINE (700MG/PATCH) PATCH. TD SCH (14:04)
[2017-10-07] MEDS: WARFARIN 1 MG TABLET. PO SCH (14:58)
[2017-10-07] MEDS: ASPIRIN ENTERIC COATED 81 MG TABLET.DR. PO SCH (21:27)
[2017-10-07] MEDS: LOSARTAN 50 MG TABLET. PO SCH (21:28)
[2017-10-07] MEDS: LACTOBACILLUS RHAMNOSUS GG 1 CAPSULE. PO SCH (21:28)
[2017-10-07] MEDS: TAMSULOSIN 0.4 MG CAP.ER.24H. PO SCH (21:28)
[2017-10-07] MEDS: FENOFIBRATE NANOCRYSTALLIZED 145 MG TABLET PO SCH (21:30)
[2017-10-07] MEDS: METOPROLOL SUCC 24HR ER 50 MG TAB.ER.24H. PO SCH (21:30)
--- NOTE | 2017-10-07 22:19 | PN ---
DATE: 10/07/2017 SUBJECTIVE: The patient is sitting in the edge of the bed comfortably, in no apparent distress. On questioning him, he denied any chest pain or shortness of breath at rest. He did complain of pain in his knees and shoulders. He stated that he has been using ibuprofen for his knees and shoulder pain, obviously probably one of the reasons why he is retaining fluid. He also complained of burning sensation and his urinalysis was consistent with urinary tract infection with moderate amount of bacteria and positive leukocyte esterase. Urine was submitted for culture and sensitivity. OBJECTIVE: GENERAL: When I examined him today, he looked well and was clearly in no apparent respiratory distress, pale, but no jaundice, cyanosis, or thyromegaly. No jugular venous distention. No limb edema. VITAL SIGNS: Her heart rate was 80, blood pressure was 133/74, temperature was 97.7, respiratory rate was 32, and oxygen saturation was 96% on 2 liters of oxygen. HEAD, EYES, EARS, NOSE AND THROAT: Normocephalic, atraumatic. NECK: Supple. HEART: Showed normal first and second sounds. No gallop, rub or murmur. CHEST: Clear to auscultation. No crepitation or rhonchi. ABDOMEN: Distended, soft, nontender. No guarding or rigidity. No organomegaly. Hernial orifice is intact. Bowel sounds normal. NEUROLOGIC: He is awake, alert, responding appropriately. Cranial nerves are intact. He moves all extremities without difficulty. He has marked swelling and limitation of movement of both of his knee joints. He has an indwelling catheter. His intake over the last 24 hours was 1760, output was 2300. LABORATORY DATA: His lab work as of this morning showed a serum sodium 141, potassium 3.2, chloride 104, bicarbonate was 36, anion gap of 1, BUN 21, creatinine 0.9, estimated GFR was 81 mL per minute, his glucose 122, and calcium was 8.7. ASSESSMENT: 1. [id number] diastolic congestive heart failure. 2. Persistent atrial fibrillation, rate controlled, on Coumadin. His INR is supratherapeutic. 3. Chronic kidney disease with stable serum creatinine. 4. Marked fluid overload, most likely multifactorial, probably dietary discretion and also the use of nonsteroidal anti-inflammatory medication. PLAN: My plan is to consult Cardiology and see whether we need to start him on a continuous Lasix drip at 5 mg per hour, replenish his potassium, and follow him closely. DICK FORBES MD DR: GRAHAM/rodolfo JOB#: [id number] / [id number]
[2017-10-08 00:01] VITALS: BP 109/75
[2017-10-08 05:30] VITALS: BP 108/60
[2017-10-08 06:06] LABS: BASO % 1 % (0-3); EOS # 0.1 x10^3/uL (0.0-0.7); EOS % 2 % (0-3); HEMATOCRIT 35.8 % (39.0-53.0); HEMOGLOBIN 12.2 g/dL (13.0-17.5); LYMPH # 0.9 x10^3/uL (1.0-4.8); LYMPH % 11 % (24-48); MEAN CORPUSCULAR HEMOGLOBIN 33 pg (25-35); MEAN CORPUSCULAR HGB CONC 34 g/dL (31-37); MEAN CORPUSCULAR VOLUME 96 fL (79-100); MONO % 13 % (0-9); NEUT % 74 % (31-73); PLATELET COUNT 157 x10^3/uL (140-400); RED BLOOD COUNT 3.74 x10^6/uL (4.30-5.70); RED CELL DISTRIBUTION WIDTH 15.6 % (11.5-14.5); WHITE BLOOD COUNT 8.1 x10^3/uL (4.0-11.0)
[2017-10-08 06:18] LABS: ALBUMIN 2.1 g/dL (3.4-5.0); ALBUMIN/GLOBULIN RATIO 0.6 (1.0-1.7); CALCIUM 8.2 mg/dL (8.5-10.1); CREATININE 0.8 mg/dL (0.7-1.3); GFR 92.8; MAGNESIUM 1.5 mg/dL (1.8-2.4); POTASSIUM 3.5 mmol/L (3.5-5.1); TOTAL BILIRUBIN 0.9 mg/dL (0.2-1.0); TOTAL PROTEIN 5.9 g/dL (6.4-8.2)
[2017-10-08] MEDS ORDERED: MAGNESIUM SULFATE 2GM 50 ML IV ONE (06:45)
[2017-10-08 08:00] VITALS: BP 99/56
[2017-10-08] MEDS: WARFARIN 1 MG TABLET. PO SCH (08:46)
[2017-10-08] MEDS: LACTOBACILLUS RHAMNOSUS GG 1 CAPSULE. PO SCH ×2 (08:46→21:05)
[2017-10-08] MEDS: POTASSIUM CHLORIDE 20 MEQ TABLET.ER. PO SCH ×3 (08:46→21:05)
[2017-10-08] MEDS: LIDOCAINE (700MG/PATCH) PATCH. TD SCH (08:47)
[2017-10-08] MEDS ORDERED: FUROSEMIDE 40 MG/4 ML VIAL IVP SCH (09:00)
--- NOTE | 2017-10-08 09:04 | PDOC ---
KRISTIE DAVIS APRN 10/08/17 0903: PROGRESS NOTES Diagnosis Problem Problems Medical Problems: (1) A-fib Status: Acute (2) Acute exacerbation of CHF (congestive heart failure) Status: Acute (3) Chronic renal insufficiency Status: Acute Assessment Problems Medical Problems: (1) A-fib Status: Acute (2) Acute exacerbation of CHF (congestive heart failure) Status: Acute (3) Chronic renal insufficiency Status: Acute 1. Acute on chronic diastolic heart failure - poor diuresis since yesterday am. Suggest albumin and lasix drip. 2. persistent afib - on warfarin and metoprolol 3. CKD - Cr remains in normal limits with GFR of 92. Problems: Subjective breathing improved. continues to have anasarca. poor urine output last 24 hours. no chest pain. Objective Vital Signs Date Time Temp Pulse Resp B/P (MAP) Pulse Ox O2 Delivery O2 Flow Rate FiO2 10/08/17 05:30 97.8 71 26 108/60 (76) 97 Nasal Cannula 2.0 Intake and Output 10/08/17 07:00 Intake Total 1920 ml Output Total 2100 ml Balance -180 ml Intake Oral 1920 ml Output Urine Total 2100 ml Abdomen: Normal bowel sounds, Soft Heart: Normal S1, Normal S2 Extremities: No cyanosis, Other (anasarca) General: Alert, Oriented X3, Cooperative Lungs: Other (basilar crackles) Neuro: Normal speech Psych/Mental Status: Mental status NL, Mood NL Review of Relevant I have reviewed the following items constantin (where applicable) has been applied. Labs Laboratory Tests Test 10/06/17 17:25 10/06/17 18:38 10/06/17 19:30 10/06/17 20:17 White Blood Count 10.0 x10^3/uL (4.0-11.0) Red Blood Count 4.14 x10^6/uL (4.30-5.70) Hemoglobin 13.3 g/dL (13.0-17.5) Hematocrit 39.4 % (39.0-53.0) Mean Corpuscular Volume 95 fL (79-100) Mean Corpuscular Hemoglobin 32 pg (25-35) Mean Corpuscular Hemoglobin Concent 34 g/dL (31-37) Red Cell Distribution Width 15.4 % (11.5-14.5) Platelet Count 168 x10^3/uL (140-400) Neutrophils (%) (Auto) 77 % (31-73) Lymphocytes (%) (Auto) 9 % (24-48) Monocytes (%) (Auto) 10 % (0-9) Eosinophils (%) (Auto) 4 % (0-3) Basophils (%) (Auto) 1 % (0-3) Neutrophils # (Auto) 7.7 x10^3uL (1.8-7.7) Lymphocytes # (Auto) 0.9 x10^3/uL (1.0-4.8) Monocytes # (Auto) 1.0 x10^3/uL (0.0-1.1) Eosinophils # (Auto) 0.4 x10^3/uL (0.0-0.7) Basophils # (Auto) 0.1 x10^3/uL (0.0-0.2) Prothrombin Time 38.7 SEC (9.4-11.4) Prothromb Time International Ratio 3.9 (0.9-1.1) Sodium Level 141 mmol/L (136-145) Potassium Level 3.7 mmol/L (3.5-5.1) Chloride Level 102 mmol/L (98-107) Carbon Dioxide Level 36 mmol/L (21-32) Anion Gap 3 (6-14) Blood Urea Nitrogen 23 mg/dL (8-26) Creatinine 0.8 mg/dL (0.7-1.3) Estimated GFR (Cockcroft-Gault) 92.8 BUN/Creatinine Ratio 29 (6-20) Glucose Level 80 mg/dL (70-99) Calcium Level 8.8 mg/dL (8.5-10.1) Total Bilirubin 0.9 mg/dL (0.2-1.0) Aspartate Amino Transf (AST/SGOT) 51 U/L (15-37) Alanine Aminotransferase (ALT/SGPT) 43 U/L (16-63) Alkaline Phosphatase 278 U/L (46-116) Creatine Kinase 52 U/L (39-308) Creatine Kinase MB (Mass) 2.0 ng/mL (0.0-3.6) Creatine Kinase MB Relative Index 3.8 % (0-4) Troponin I Quantitative 0.040 ng/mL (0-0.055) PF-Rjc-[id number]-Type Natriuretic Peptide 2010 pg/mL (0-449) Total Protein 6.9 g/dL (6.4-8.2) Albumin 2.6 g/dL (3.4-5.0) Albumin/Globulin Ratio 0.6 (1.0-1.7) Urine Collection Type U cath Urine Color Straw Urine Clarity Hazy Urine pH 6.5 Urine Specific [place] 1.015 Urine Protein Neg (NEG-TRACE) Urine Glucose (UA) Neg mg/dL (NEG) Urine Ketones (Stick) Neg mg/dL (NEG) Urine Blood Small (NEG) Urine Nitrite Neg (NEG) Urine Bilirubin Neg (NEG) Urine Urobilinogen Dipstick 0.2 mg/dL (0.2 mg/dL) Urine Leukocyte Esterase Large (NEG) Urine RBC 6-10 /HPF (0-2) Urine WBC 11-20 /HPF (0-4) Urine Squamous Epithelial Cells Few /LPF Urine Bacteria Mod /HPF (0-FEW) Urine Mucus Slight /LPF Nasal Screen MRSA (PCR) Negative (Negative) Glucose (Fingerstick) 73 mg/dL (70-99) Test 10/07/17 02:17 10/07/17 08:06 10/07/17 10:35 10/07/17 12:02 Glucose (Fingerstick) 102 mg/dL (70-99) 82 mg/dL (70-99) 83 mg/dL (70-99) Sodium Level 141 mmol/L (136-145) Potassium Level 3.2 mmol/L (3.5-5.1) Chloride Level 104 mmol/L (98-107) Carbon Dioxide Level 36 mmol/L (21-32) Anion Gap 1 (6-14) Blood Urea Nitrogen 21 mg/dL (8-26) Creatinine 0.9 mg/dL (0.7-1.3) Estimated GFR (Cockcroft-Gault) 81.0 Glucose Level 122 mg/dL (70-99) Calcium Level 8.5 mg/dL (8.5-10.1) Test 10/07/17 12:39 10/07/17 17:25 10/08/17 05:35 Prothrombin Time 31.2 SEC (9.4-11.4) 26.5 SEC (9.4-11.4) Prothromb Time International Ratio 3.1 (0.9-1.1) 2.6 (0.9-1.1) Glucose (Fingerstick) 104 mg/dL (70-99) White Blood Count 8.1 x10^3/uL (4.0-11.0) Red Blood Count 3.74 x10^6/uL (4.30-5.70) Hemoglobin 12.2 g/dL (13.0-17.5) Hematocrit 35.8 % (39.0-53.0) Mean Corpuscular Volume 96 fL (79-100) Mean Corpuscular Hemoglobin 33 pg (25-35) Mean Corpuscular Hemoglobin Concent 34 g/dL (31-37) Red Cell Distribution Width 15.6 % (11.5-14.5) Platelet Count 157 x10^3/uL (140-400) Neutrophils (%) (Auto) 74 % (31-73) Lymphocytes (%) (Auto) 11 % (24-48) Monocytes (%) (Auto) 13 % (0-9) Eosinophils (%) (Auto) 2 % (0-3) Basophils (%) (Auto) 1 % (0-3) Neutrophils # (Auto) 6.0 x10^3uL (1.8-7.7) Lymphocytes # (Auto) 0.9 x10^3/uL (1.0-4.8) Monocytes # (Auto) 1.0 x10^3/uL (0.0-1.1) Eosinophils # (Auto) 0.1 x10^3/uL (0.0-0.7) Basophils # (Auto) 0.0 x10^3/uL (0.0-0.2) Sodium Level 142 mmol/L (136-145) Potassium Level 3.5 mmol/L (3.5-5.1) Chloride Level 104 mmol/L (98-107) Carbon Dioxide Level 38 mmol/L (21-32) Anion Gap 0 (6-14) Blood Urea Nitrogen 20 mg/dL (8-26) Creatinine 0.8 mg/dL (0.7-1.3) Estimated GFR (Cockcroft-Gault) 92.8 BUN/Creatinine Ratio 25 (6-20) Glucose Level 96 mg/dL (70-99) Calcium Level 8.2 mg/dL (8.5-10.1) Magnesium Level 1.5 mg/dL (1.8-2.4) Total Bilirubin 0.9 mg/dL (0.2-1.0) Aspartate Amino Transf (AST/SGOT) 39 U/L (15-37) Alanine Aminotransferase (ALT/SGPT) 34 U/L (16-63) Alkaline Phosphatase 233 U/L (46-116) Total Protein 5.9 g/dL (6.4-8.2) Albumin 2.1 g/dL (3.4-5.0) Albumin/Globulin Ratio 0.6 (1.0-1.7) Medications Current Medications Furosemide (Lasix) 40 mg 1X ONCE IVP Last administered on 10/06/17 18:21; Start 10/06/17 at 18:15; Stop 10/06/17 at 18:16; Status DC Nitroglycerin (Nitro-Bid Oint) 0.25 inch Q6HRS TP Last administered on at 05:56; Start 10/07/17 at 00:00; Stop 10/07/17 at 13:40; Status DC Morphine Sulfate (Morphine 4mg Syringe) 2 mg PRN Q2HR PRN IV PAIN; Start at 19:30 Potassium Chloride (Klor-Con) 40 meq 1X ONCE PO Last administered on 10/07/17 13:03; Start 10/07/17 at 12:15; Stop 10/07/17 at 12:21; Status DC Furosemide (Lasix) 40 mg 1X ONCE IVP Last administered on 10/07/17at 13:12; Start 10/07/17 at 12:15; Stop 10/07/17 at 12:20; Status DC Aspirin (Aspirin Enteric Coated) 81 mg HS PO Last administered on 10/07/17at 21: 27; Start 10/07/17 at 21:00 Fenofibrate (Tricor) 145 mg HS PO Last administered on 10/07/17at 21:30; Start at 21:00 Tamsulosin HCl (Flomax) 0.4 mg HS PO Last administered on 10/07/17at 21:28; Start 10/07/17 at 21:00 Warfarin Sodium (Coumadin) 1.5 mg QODAY PO ; Start 10/09/17 at 09:00; Stop at 09:00; Status DC Warfarin Sodium (Coumadin) 2 mg QODAY PO ; Start 10/09/17 at 09:00; Stop 10/09/17 at 09:00; Status DC Losartan Potassium (Cozaar) 100 mg QHS PO Last administered on 10/07/17 21:28; Start 10/07/17 at 21:00 Metoprolol Succinate (Toprol Xl) 200 mg QHS PO Last administered on 10/07/17 21 :30; Start 10/07/17 at 21:00 Warfarin Sodium (Coumadin Per Pharmacy) 1 each PRN DAILY PRN MC SEE COMMENTS Last administered on 10/07/17 13:29; Start 10/07/17 at 12:15 Info (Anti-Coagulation Monitoring By Pharmacy) 1 each PRN DAILY PRN MC SEE COMMENTS; Start 10/07/17 at 12:15; Stop 10/07/17 at 12:22; Status DC Phenazopyridine HCl (Pyridium) 100 mg PRN TID PRN PO URINARY PAIN; Start at 13:00 Lidocaine (Lidoderm) 3 patch DAILY TD Last administered on 10/08/17 08:47; Start 10/07/17 at 14:00 Ceftriaxone Sodium 1 gm/ Sodium Chloride 50 ml @ 100 mls/hr Q24H IV ; Start 10/07/17 at 13:00; Stop 10/07/17 at 13:20; Status DC Potassium Chloride (Klor-Con) 20 meq TID PO Last administered on 10/08/17 08:46 ; Start 10/07/17 at 14:00 Ceftriaxone Sodium (Rocephin) 1 gm Q24H IVP Last administered on 10/07/17 14:01 ; Start 10/07/17 at 13:30 Furosemide (Lasix) 40 mg 1X ONCE IVP ; Start 10/07/17 at 13:30; Stop 10/07/17 at 13:31; Status DC Furosemide (Lasix) 40 mg DAILY IVP Last administered on 10/08/17 08:46; Start 10/08/17 at 09:00 Warfarin Sodium (Coumadin) 1.5 mg QODAY PO Last administered on 10/07/17 14:58 ; Start 10/07/17 at 13:30 Lactobacillus Rhamnosus (Culturelle) 1 cap BID PO Last administered on 5/4/ 18at 08:46; Start 10/07/17 at 21:00 Warfarin Sodium (Coumadin) 2 mg QODAY PO Last administered on 10/08/17at 08:46; Start 10/08/17 at 09:00 Lidocaine (Lidoderm) 3 patch DAILY TD ; Start 10/07/17 at 13:50; Status UNV Magnesium Sulfate 50 ml @ 25 mls/hr 1X ONCE IV Last administered on 10/08/17at 07:41; Start 10/08/17 at 06:45; Stop 10/08/17 at 08:44; Status DC Active Scripts Active Reported Triamcinolone Acetonide 15 Gm Cream..g. 1 Jhony TP DAILY apply to LE bilateral TP every day shift. Cleanse, apply cream, xeroform gauze. Then dry dressing, roll gauze. Compression dressing. Tamsulosin Hcl 0.4 Mg Cap.er.24h 1 Cap PO HS Tylenol (Acetaminophen) 325 Mg Tablet 2 Tab PO PRN Q6HRS Zoloft (Sertraline Hcl) 25 Mg Tablet 1 Tab PO HS Cozaar (Losartan Potassium) 100 Mg Tablet 100 Mg PO HS Coumadin (Warfarin Sodium) 1 Mg Tablet 1.5 Tab PO QODAY 1.5 MG Every Wed, Wed, , Wed Coumadin (Warfarin Sodium) 1 Mg Tablet 2 Mg PO QODAY 2mg due Wednesday, Wed, Wed Potassium Chloride 10 Meq Capsule.er 1 Cap PO DAILY LAST DOSE GIVEN: DATE: TODAY TIME: AM NEXT DOSE DUE: DATE: TOMORROW TIME: AM Vitamin E (Vitamin E Acetate) 400 Unit Capsule 400 Unit PO DAILY NEXT DOSE DUE: DATE: RESTART TODAY TIME: WHEN YOU GET HOME NEXT DOSE DUE: DATE: RESTART TODAY TIME: WHEN YOU GET HOME Fenofibrate (Fenofibrate Nanocrystallized) 145 Mg Tablet 1 Tab PO HS LAST DOSE GIVEN: DATE: YESTERDAY TIME: AT BEDTIME NEXT DOSE DUE: DATE: TODAY TIME: AT BEDTIME Calcium 500 + Vit D 200 Tablet (Calcium Carbonate/Vitamin D3) 1 Each Tablet 1 Each PO DAILY LAST DOSE GIVEN: DATE: TODAY TIME: AM NEXT DOSE DUE: DATE: TOMORROW TIME: AM Loratadine 10 Mg Tablet 1 Tab PO DAILY LAST DOSE GIVEN: DATE: TODAY TIME: AM NEXT DOSE DUE: DATE: TOMORROW TIME: AM Aspir 81 (Aspirin) 81 Mg Tablet. 81 Mg PO HS LAST DOSE GIVEN: DATE: TODAY TIME: AM NEXT DOSE DUE: DATE: TOMORROW TIME: AM Flax Seed Oil (Flaxseed Oil) 1,000 Mg Capsule 1,000 Mg PO DAILY NEXT DOSE DUE: DATE: RESTART TODAY TIME: WHEN YOU GET HOME NEXT DOSE DUE: DATE: RESTART TODAY TIME: WHEN YOU GET HOME Fish Oil Softgel ([place]-3 Fatty Acids/Fish Oil) 1 Each Capsule 2 Each PO DAILY LAST DOSE GIVEN: DATE: TODAY TIME: AM NEXT DOSE DUE: DATE: TODAY TIME: PM Furosemide 20 Mg Tablet 40 Mg PO DAILY LAST DOSE GIVEN: DATE: Today TIME: AM NEXT DOSE DUE: DATE: Tomorrow TIME: AM TIME: PM THEN TAKE 40 MG ONCE DAILY STARTING Wednesday Metoprolol Succinate ( Xl ) (Metoprolol Succinate) 200 Mg Tab.er.24h 200 Mg PO DAILY LAST DOSE GIVEN: DATE: YESTERDAY TIME: AT BEDTIME NEXT DOSE DUE: DATE: TODAY TIME: AT BEDTIME Vitals/I & O Vital Sign - Last 24 Hours 10/07/17 10/07/17 10/07/17 10/07/17 09:24 10:24 11:24 12:24 Pulse 90 90 84 89 Resp 30 28 31 30 B/P (MAP) 122/72 (89) 113/68 (83) 136/85 (102) 140/72 (94) Pulse Ox 95 96 99 95 O2 Delivery Nasal Cannula Nasal Cannula Nasal Cannula Nasal Cannula O2 Flow Rate 2.0 2.0 2.0 2.0 10/07/17 10/07/17 10/07/17 10/07/17 12:38 16:00 20:00 20:00 Temp 98.1 98.4 Pulse 95 103 Resp 30 24 B/P (MAP) 155/84 (107) 150/100 (117) Pulse Ox 92 95 O2 Delivery Nasal Cannula Nasal Cannula Nasal Cannula Nasal Cannula O2 Flow Rate 2.0 2.0 2.0 2.0 10/07/17 10/07/17 10/08/17 10/08/17 21:28 21:30 00:01 05:30 Temp 98.9 97.8 Pulse 89 103 85 71 Resp 24 26 B/P (MAP) 150/100 150/100 109/75 (86) 108/60 (76) Pulse Ox 95 97 O2 Delivery Nasal Cannula Nasal Cannula O2 Flow Rate 2.0 2.0 Intake and Output 10/07/17 10/07/17 10/08/17 15:00 23:00 07:00 Intake Total 220 ml 1700 ml Output Total 1850 ml 250 ml Balance 220 ml -150 ml -250 ml AL COFFEY MD 10/09/17 0709: PROGRESS NOTES Assessment Patient seen and examined 10/08/17 (late entry). Agree with OXYACETYLENE CUTTER's assessment and plan. Inadequate diuresis thus far Agree with intravenous Lasix drip and albumin infusions for better diuresis If patient still doesn't respond we will consider addition of metolazone Permanent atrial fibrillation rate controlled Problems: KRISTIE DAVIS APRN October 08, 2017 09:03 AL COFFEY MD October 09, 2017 07:09
[2017-10-08] MEDS ORDERED: ALBUMIN HUMAN 25% 50 ML IV ONE (10:45)
[2017-10-08] MEDS: cefTRIAXone IV Push 1 GM VIAL. IVP SCH (13:08)
--- NOTE | 2017-10-08 13:42 | RAD ---
CHEST AP ONLY History: PICC LINE PLACEMENT Comparison: October 06, 2017 Findings: Single view of the chest is submitted. There is now a right upper extremity PICC with the tip near the cavoatrial junction. There are low lung volumes. There is increased left base opacity, probable component of pleural fluid. There is also somewhat increased airspace opacity right lung base and probable small right pleural effusion. There is no pneumothorax. Pericardial cardiac silhouette is again enlarged. Central pulmonary vasculature appears somewhat less distinct. Prominence of mediastinal width is unchanged. Impression: 1. There is now a right upper extremity PICC with the tip near the caval atrial junction. 2. There is increased bibasilar airspace opacity, also suspected small bilateral pleural effusions. Constellation of findings may be due to component of left ventricular failure although infiltrates not excluded. Electronically signed by: Chivo Sherman MD (10/08/2017 1:39 PM) [email or web address]
[2017-10-08] MEDS: FUROSEMIDE INJ 100 MG in IV NORMAL SALINE 100ML 90 ML IV PRN (13:49)
[2017-10-08 16:05] VITALS: BP 119/69
[2017-10-08 19:43] VITALS: BP 124/62
[2017-10-08] MEDS: TAMSULOSIN 0.4 MG CAP.ER.24H. PO SCH (21:05)
[2017-10-08] MEDS: FENOFIBRATE NANOCRYSTALLIZED 145 MG TABLET PO SCH (21:05)
[2017-10-08] MEDS: METOPROLOL SUCC 24HR ER 50 MG TAB.ER.24H. PO SCH (21:05)
[2017-10-08] MEDS: ASPIRIN ENTERIC COATED 81 MG TABLET.DR. PO SCH (21:06)
[2017-10-08] MEDS: LOSARTAN 50 MG TABLET. PO SCH (21:06)
[2017-10-09 05:15] VITALS: BP 93/60
[2017-10-09 06:05] LABS: CALCIUM 8.4 mg/dL (8.5-10.1); CREATININE 0.8 mg/dL (0.7-1.3); GFR 92.8; MAGNESIUM 1.5 mg/dL (1.8-2.4); POTASSIUM 3.7 mmol/L (3.5-5.1)
[2017-10-09] MEDS: FUROSEMIDE INJ 100 MG in IV NORMAL SALINE 100ML 90 ML IV PRN (08:17)
[2017-10-09] MEDS: LACTOBACILLUS RHAMNOSUS GG 1 CAPSULE. PO SCH ×2 (08:30→20:38)
[2017-10-09] MEDS: WARFARIN 1 MG TABLET. PO SCH (08:31)
[2017-10-09] MEDS: POTASSIUM CHLORIDE 20 MEQ TABLET.ER. PO SCH ×3 (08:31→20:38)
[2017-10-09] MEDS: LIDOCAINE (700MG/PATCH) PATCH. TD SCH (08:32)
--- NOTE | 2017-10-09 08:50 | PN ---
DATE: 10/08/2017 SUBJECTIVE: The patient is resting, sitting on the edge of the bed comfortably, in no apparent distress. He denied any chest pain or shortness of breath as long as he is not moving. He is now on a Lasix drip at 5 mg per hour, together with ____ albumin. PHYSICAL EXAMINATION: GENERAL: When I examined him, he was slightly pale, but no jaundice or cyanosis. No lymphadenopathy, no thyromegaly. No jugular venous distention but generalized anasarca. VITAL SIGNS: His heart rate was 64, blood pressure 119/69, temperature was 97.8, respiratory rate was 24, and oxygen saturation was 97% on 2 liters of oxygen by nasal cannula. HEAD, EYES, EARS, NOSE AND THROAT: Showed normocephalic, atraumatic. NECK: Supple. HEART: Showed normal first and second heart sounds. No gallop, rub or murmur. CHEST: Clear to auscultation. No crepitation or rhonchi. ABDOMEN: Distended, soft, nontender. NEUROLOGIC: He is awake, alert, responding appropriately. Cranial nerves intact. He moves extremities without difficulty. Examination of the extremities showed no clubbing, cyanosis but generalized anasarca. His intake over the last 24 hours was 1920, output was 2100. LABORATORY DATA: His white cell count was 8000, hemoglobin 12, hematocrit 36, MCV 96, and platelet count 257,000. His prothrombin time was 26.5, INR of 2.6. His serum sodium was 142, potassium 3.5, chloride 104, bicarbonate 38, anion gap of 0, BUN of 20, creatinine 0.8, estimated GFR was 93 mL per minute. His glucose 96, calcium was 8.2, magnesium was 1.5. Total bilirubin, AST, ALT were normal. Alkaline phosphatase slightly elevated. His total protein was 5.9, albumin was 2.6. TSH was 4.268. ASSESSMENT: 1. Acute on chronic diastolic congestive heart failure, now on albumin and Lasix drip. 2. Persistent atrial fibrillation on Coumadin and metoprolol, rate controlled, well anticoagulated, chronic kidney disease. Creatinine remains within normal range within GFR of 92 mL per minute. PLAN: To continue with Lasix drip for now. If the response is not optimal, we might increase it to 10 mg. I am not sure about a trial of dobutamine or ____ and the cardiology team is on board obviously this decision is theirs. We will obviously keep an eye on his electrolytes, particularly potassium and magnesium as well as his prothrombin time. DICK FORBES MD DR: GRAHAM/rodolfo JOB#: [id number] / [id number]
[2017-10-09] MEDS ORDERED: WARFARIN 1 MG TABLET. PO SCH ×2 (09:00)
[2017-10-09] MEDS ORDERED: MAGNESIUM OXIDE 400 MG TABLET PO SCH (09:00)
[2017-10-09 10:44] VITALS: BP 104/61
[2017-10-09] MEDS: cefTRIAXone IV Push 1 GM VIAL. IVP SCH (13:07)
[2017-10-09] MEDS: MAGNESIUM OXIDE 400 MG TABLET PO SCH ×2 (14:33→20:39)
[2017-10-09 15:25] VITALS: BP 100/60
[2017-10-09 16:07] VITALS: BP 155/77
[2017-10-09 16:25] LABS: BASO # 0.1 x10^3/uL (0.0-0.2); BASO % 1 % (0-3); EOS # 0.3 x10^3/uL (0.0-0.7); EOS % 2 % (0-3); HEMATOCRIT 37.9 % (39.0-53.0); HEMOGLOBIN 12.6 g/dL (13.0-17.5); LYMPH # 1.2 x10^3/uL (1.0-4.8); LYMPH % 12 % (24-48); MEAN CORPUSCULAR HEMOGLOBIN 32 pg (25-35); MEAN CORPUSCULAR HGB CONC 33 g/dL (31-37); MEAN CORPUSCULAR VOLUME 96 fL (79-100); MONO # 1.2 x10^3/uL (0.0-1.1); MONO % 11 % (0-9); NEUT % 74 % (31-73); PLATELET COUNT 194 x10^3/uL (140-400); RED BLOOD COUNT 3.96 x10^6/uL (4.30-5.70); RED CELL DISTRIBUTION WIDTH 15.7 % (11.5-14.5); WHITE BLOOD COUNT 10.8 x10^3/uL (4.0-11.0)
[2017-10-09 16:37] LABS: ALBUMIN 2.2 g/dL (3.4-5.0); ALBUMIN/GLOBULIN RATIO 0.6 (1.0-1.7); CALCIUM 8.3 mg/dL (8.5-10.1); CREATININE 0.9 mg/dL (0.7-1.3); POTASSIUM 3.9 mmol/L (3.5-5.1); TOTAL BILIRUBIN 0.4 mg/dL (0.2-1.0); TOTAL PROTEIN 6.2 g/dL (6.4-8.2)
[2017-10-09] MEDS: BUMETANIDE 1 MG/4 ML VIAL. IV SCH (16:53)
[2017-10-09 19:54] VITALS: BP 113/71
[2017-10-09] MEDS: METOPROLOL SUCC 24HR ER 50 MG TAB.ER.24H. PO SCH (20:38)
[2017-10-09] MEDS: TAMSULOSIN 0.4 MG CAP.ER.24H. PO SCH (20:38)
[2017-10-09] MEDS: ASPIRIN ENTERIC COATED 81 MG TABLET.DR. PO SCH (20:38)
[2017-10-09] MEDS: LOSARTAN 50 MG TABLET. PO SCH (20:39)
[2017-10-09] MEDS: FENOFIBRATE NANOCRYSTALLIZED 145 MG TABLET PO SCH (20:39)
[2017-10-09 22:52] VITALS: BP 115/70
[2017-10-10 05:20] LABS: HEMATOCRIT 37.3 % (39.0-53.0); HEMOGLOBIN 12.5 g/dL (13.0-17.5); RED BLOOD COUNT 3.93 x10^6/uL (4.30-5.70); RED CELL DISTRIBUTION WIDTH 15.5 % (11.5-14.5); WHITE BLOOD COUNT 9.9 x10^3/uL (4.0-11.0)
[2017-10-10 05:31] LABS: ALBUMIN 2.2 g/dL (3.4-5.0); ALBUMIN/GLOBULIN RATIO 0.6 (1.0-1.7); CALCIUM 8.6 mg/dL (8.5-10.1); CREATININE 0.9 mg/dL (0.7-1.3); MAGNESIUM 1.8 mg/dL (1.8-2.4); TOTAL BILIRUBIN 0.6 mg/dL (0.2-1.0); TOTAL PROTEIN 6.1 g/dL (6.4-8.2)
[2017-10-10 05:40] VITALS: BP 123/79
[2017-10-10] MEDS: BUMETANIDE 1 MG/4 ML VIAL. IV SCH ×2 (09:05→14:00)
[2017-10-10] MEDS: POTASSIUM CHLORIDE 20 MEQ TABLET.ER. PO SCH ×3 (09:05→21:17)
[2017-10-10] MEDS: LACTOBACILLUS RHAMNOSUS GG 1 CAPSULE. PO SCH ×2 (09:05→21:17)
[2017-10-10] MEDS: MAGNESIUM OXIDE 400 MG TABLET PO SCH (09:05)
[2017-10-10] MEDS: WARFARIN 1 MG TABLET. PO SCH (09:06)
[2017-10-10] MEDS: LIDOCAINE (700MG/PATCH) PATCH. TD SCH (09:06)
--- NOTE | 2017-10-10 10:50 | PN ---
DATE: 10/09/2017 SUBJECTIVE: The patient is sitting comfortably in his chair in no apparent distress. He denied any chest pain or shortness of breath; however, he is frustrated that his urine output is not optimal despite Lasix drip. PHYSICAL EXAMINATION: GENERAL: When I examined him, he looked somewhat pale, but no jaundice, cyanosis, or thyromegaly. No jugular venous distension. No lower limb edema. VITAL SIGNS: His heart rate was 57, blood pressure was 104/61, temperature was 97.3, respiratory rate 20, and oxygen saturation was 97% on 2 liters of oxygen. HEAD, EYES, EARS, NOSE, AND THROAT: Showed normocephalic, atraumatic. NECK: Supple. HEART: Showed normal first and second heart sounds. No gallop, rub, or murmur. CHEST: Clear to auscultation. No crepitation or rhonchi. ABDOMEN: Distended, soft, nontender. NEUROLOGIC: He was awake, alert, responding appropriately. All cranial nerves intact. He moves extremities without difficulty, although he is mostly bedbound, chair bound. He has generalized anasarca with marked swelling of both lower extremities that extends all the way to the sacral area. His intake over the last 24 hours was 1600, output was 1625. LABORATORY DATA: Lab work as of this morning showed a serum sodium of 141, potassium 3.7, chloride 102, bicarbonate 36, anion gap of 3, BUN 22, creatinine 0.8, estimated GFR was 93 mL per minute. His glucose was 98, calcium was 8.4, magnesium was 1.5. His white cell count was 8000, hemoglobin 12, hematocrit 36, MCV 96, and platelet count of 157,000. ASSESSMENT: 1. [id number] diastolic congestive heart failure, now on albumin and Lasix drip. 2. Persistent atrial fibrillation, on Coumadin and metoprolol, rate controlled, well anticoagulated. 3. Chronic kidney disease. Creatinine remains within normal range. GFR is 93 mL per minute. 4. Severe protein calorie malnutrition. Albumin is only 2.1 g/dL. 5. Hypomagnesemia with serum potassium of 1.5. PLAN: To continue with the Lasix drip and replenish his magnesium. Dr. Cartagena said he will change his medication tomorrow as his urine output is not adequate and he has not really lost a lot of weight so far. DICK FORBES MD DR: GRAHAM/rodolfo JOB#: [id number] / [id number]
[2017-10-10 11:06] VITALS: BP 94/54
[2017-10-10] MEDS ORDERED: HYDROcodone/APAP 5/325MG 1 TAB TABLET PO PRN (11:15)
[2017-10-10] MEDS: ALBUMIN HUMAN 25% 50 ML IV SCH ×2 (11:19→21:45)
[2017-10-10] MEDS: cefTRIAXone IV Push 1 GM VIAL. IVP SCH (13:16)
[2017-10-10 14:42] VITALS: BP 95/55
[2017-10-10] MEDS: metOLazone 2.5 MG TABLET PO SCH (18:24)
[2017-10-10 19:28] VITALS: BP 103/66
[2017-10-10] MEDS: METOPROLOL SUCC 24HR ER 50 MG TAB.ER.24H. PO SCH (21:16)
[2017-10-10] MEDS: FENOFIBRATE NANOCRYSTALLIZED 145 MG TABLET PO SCH (21:17)
[2017-10-10] MEDS: TAMSULOSIN 0.4 MG CAP.ER.24H. PO SCH (21:17)
[2017-10-10] MEDS: ASPIRIN ENTERIC COATED 81 MG TABLET.DR. PO SCH (21:17)
[2017-10-10] MEDS: LOSARTAN 50 MG TABLET. PO SCH (21:18)
--- NOTE | 2017-10-11 04:38 | PN ---
DATE: 10/10/2017 SUBJECTIVE: The patient is sitting comfortably in his recliner in no apparent respiratory distress. He denied any complaint. His diuretics were switched to Bumex without really much improvement in his urine output; however, he be himself, does not have any complaint of chest pain or shortness of breath, orthopnea or paroxysmal nocturnal dyspnea, however, he continued to have generalized anasarca, likely due to low oncotic pressure due to hypoalbuminemia and third spacing. He is receiving anyone by 12.5 grams of albumin. OBJECTIVE: GENERAL: When I examined him this morning he looked pale, but no jaundice, cyanosis, or thyromegaly. No jugular venous distension. No lower limb edema. VITAL SIGNS: His heart rate was 97, blood pressure was 123/79, temperature was 97, respiratory rate was 18 and oxygen saturation was 98% on 2 liters of oxygen. HEAD, EYES, EARS, NOSE AND THROAT: Showed normocephalic, atraumatic. NECK: Supple. HEART: Showed normal first and second heart sounds with no gallop, rub or murmur. CHEST: Clear to auscultation. No crepitation or rhonchi. ABDOMEN: Distended, soft, nontender. No guarding or rigidity. No organomegaly. Hernial orifice intact. Bowel sounds normal. NEUROLOGIC: He is awake, alert, responding appropriately. Cranial nerves intact. He moves extremities without difficulty. He managed to walk with a walker to the shower. He has wounds that covered with dressing. His intake over the last 24 hours was 1600, output was 1650. LABORATORY WORK: Showed a white cell count 9900, hemoglobin 12.5, hematocrit 37.3, MCV 95 and platelet count of 190,000. His chemistry showed a serum sodium 141, potassium 4, chloride 102, bicarbonate 39, anion gap of 0, BUN 31, creatinine 0.9, estimated GFR was 81 mL per minute. His glucose was 95, calcium was 8.6, magnesium was 1.8. Total bilirubin, AST, ALT, alkaline phosphatase were normal. His total protein was 6.1, albumin was 2.2. ASSESSMENT: 1. [id number] diastolic congestive heart failure now, on albumin and Lasix drip. 2. Resistant atrial fibrillation, Coumadin and metoprolol, rate controlled, well anticoagulated. 3. Chronic kidney disease. Creatinine remains within normal range. GFR is 93 mL per minute. 4. Severe protein-calorie malnutrition, serum albumin is only 2.1 g/dL likely because of third spacing. 5. Hypomagnesemia, improved with magnesium this morning is 1.8. PLAN: My plan is to increase his albumin to twice a day. Continue with Bumex and decide on further management accordingly. DICK FORBES MD DR: GRAHAM/rodolfo JOB#: [id number] / [id number]
[2017-10-11 05:00] VITALS: BP 101/60
[2017-10-11 07:04] LABS: CALCIUM 8.6 mg/dL (8.5-10.1); CREATININE 0.9 mg/dL (0.7-1.3); POTASSIUM 4.1 mmol/L (3.5-5.1)
[2017-10-11] MEDS ORDERED: BUMETANIDE 1 MG/4 ML VIAL. IV SCH (09:00)
[2017-10-11] MEDS: LIDOCAINE (700MG/PATCH) PATCH. TD SCH (09:00)
[2017-10-11] MEDS: LACTOBACILLUS RHAMNOSUS GG 1 CAPSULE. PO SCH ×2 (09:17→20:56)
[2017-10-11] MEDS: metOLazone 2.5 MG TABLET PO SCH (09:18)
[2017-10-11] MEDS: POTASSIUM CHLORIDE 20 MEQ TABLET.ER. PO SCH ×3 (09:20→20:56)
[2017-10-11] MEDS: WARFARIN 1 MG TABLET. PO SCH (09:20)
[2017-10-11] MEDS: ALBUMIN HUMAN 25% 50 ML IV SCH ×2 (09:21→20:55)
--- NOTE | 2017-10-11 09:54 | PDOC ---
PROGRESS NOTES Diagnosis Problem Problems Medical Problems: (1) A-fib Status: Acute (2) Acute exacerbation of CHF (congestive heart failure) Status: Acute (3) Chronic renal insufficiency Status: Acute Assessment Problems Medical Problems: (1) A-fib Status: Acute (2) Acute exacerbation of CHF (congestive heart failure) Status: Acute (3) Chronic renal insufficiency Status: Acute 1. Acute on chronic diastolic heart failure - Continued poor diuresis despite addition of albumin. Changed to Bumex IV and added metolazone over the weekend with no significant change. Will increase metolazone dose this am and monitor accurate I /Os today. Increase bumex if no significant change. Consider renal eval if no improvement. 2. persistent afib - on warfarin and metoprolol 3. CKD - Cr remains in normal limits with GFR of 81. Problems: Subjective no chest pain, no dyspnea, no palpitations or lightheadedness. no change in edema. Objective Vital Signs Date Time Temp Pulse Resp B/P (MAP) Pulse Ox O2 Delivery O2 Flow Rate FiO2 10/11/17 05:00 97.5 56 20 101/60 (74) 90 Nasal Cannula 2.0 Intake and Output 10/11/17 07:00 Intake Total 1450 ml Output Total 950 ml Balance 500 ml Intake Oral 1340 ml IV Total 110 ml Output Urine Total 950 ml # Bowel Movements 1 Abdomen: Normal bowel sounds, Soft, No tenderness Heart: Normal S1, Normal S2 Extremities: No cyanosis, Other (+ anasarca unchanged) General: Alert, Oriented X3, Cooperative, No acute distress HEENT: Atraumatic, EOMI Lungs: Other (mildly decreased bases, no crackles, rhonchi, wheezing) Neuro: Normal speech, Strength at 5/5 X4 ext Psych/Mental Status: Mental status NL, Mood NL Review of Relevant I have reviewed the following items constantin (where applicable) has been applied. Labs Laboratory Tests Test 10/09/17 16:17 10/10/17 05:00 10/11/17 06:30 White Blood Count 10.8 x10^3/uL (4.0-11.0) 9.9 x10^3/uL (4.0-11.0) Red Blood Count 3.96 x10^6/uL (4.30-5.70) 3.93 x10^6/uL (4.30-5.70) Hemoglobin 12.6 g/dL (13.0-17.5) 12.5 g/dL (13.0-17.5) Hematocrit 37.9 % (39.0-53.0) 37.3 % (39.0-53.0) Mean Corpuscular Volume 96 fL (79-100) 95 fL (79-100) Mean Corpuscular Hemoglobin 32 pg (25-35) 32 pg (25-35) Mean Corpuscular Hemoglobin Concent 33 g/dL (31-37) 33 g/dL (31-37) Red Cell Distribution Width 15.7 % (11.5-14.5) 15.5 % (11.5-14.5) Platelet Count 194 x10^3/uL (140-400) 190 x10^3/uL (140-400) Neutrophils (%) (Auto) 74 % (31-73) Lymphocytes (%) (Auto) 12 % (24-48) Monocytes (%) (Auto) 11 % (0-9) Eosinophils (%) (Auto) 2 % (0-3) Basophils (%) (Auto) 1 % (0-3) Neutrophils # (Auto) 8.0 x10^3uL (1.8-7.7) Lymphocytes # (Auto) 1.2 x10^3/uL (1.0-4.8) Monocytes # (Auto) 1.2 x10^3/uL (0.0-1.1) Eosinophils # (Auto) 0.3 x10^3/uL (0.0-0.7) Basophils # (Auto) 0.1 x10^3/uL (0.0-0.2) Sodium Level 140 mmol/L (136-145) 141 mmol/L (136-145) 142 mmol/L (136-145) Potassium Level 3.9 mmol/L (3.5-5.1) 4.0 mmol/L (3.5-5.1) 4.1 mmol/L (3.5-5.1) Chloride Level 103 mmol/L (98-107) 102 mmol/L (98-107) 104 mmol/L (98-107) Carbon Dioxide Level 36 mmol/L (21-32) 39 mmol/L (21-32) 38 mmol/L (21-32) Anion Gap 1 (6-14) 0 (6-14) 0 (6-14) Blood Urea Nitrogen 29 mg/dL (8-26) 31 mg/dL (8-26) 34 mg/dL (8-26) Creatinine 0.9 mg/dL (0.7-1.3) 0.9 mg/dL (0.7-1.3) 0.9 mg/dL (0.7-1.3) Estimated GFR (Cockcroft-Gault) 81.0 81.0 81.0 BUN/Creatinine Ratio 32 (6-20) 34 (6-20) Glucose Level 96 mg/dL (70-99) 95 mg/dL (70-99) 89 mg/dL (70-99) Calcium Level 8.3 mg/dL (8.5-10.1) 8.6 mg/dL (8.5-10.1) 8.6 mg/dL (8.5-10.1) Total Bilirubin 0.4 mg/dL (0.2-1.0) 0.6 mg/dL (0.2-1.0) Aspartate Amino Transf (AST/SGOT) 40 U/L (15-37) 35 U/L (15-37) Alanine Aminotransferase (ALT/SGPT) 33 U/L (16-63) 31 U/L (16-63) Alkaline Phosphatase 251 U/L (46-116) 242 U/L (46-116) Total Protein 6.2 g/dL (6.4-8.2) 6.1 g/dL (6.4-8.2) Albumin 2.2 g/dL (3.4-5.0) 2.2 g/dL (3.4-5.0) Albumin/Globulin Ratio 0.6 (1.0-1.7) 0.6 (1.0-1.7) Prothrombin Time 26.9 SEC (9.4-11.4) 29.1 SEC (9.4-11.4) Prothromb Time International Ratio 2.7 (0.9-1.1) 2.9 (0.9-1.1) Magnesium Level 1.8 mg/dL (1.8-2.4) Microbiology 10/06/17 Urine Culture - Final, Complete 10/06/17 Urine Culture Result 1 (ROSALIO) - Final, Complete 10/06/17 Urine Culture Result 2 (ROSALIO) - Final, Complete 10/06/17 Antimicrobic Susceptibility - Final, Complete Medications Current Medications Furosemide (Lasix) 40 mg 1X ONCE IVP Last administered on 10/06/17at 18:21; Start 10/06/17 at 18:15; Stop 10/06/17 at 18:16; Status DC Nitroglycerin (Nitro-Bid Oint) 0.25 inch Q6HRS TP Last administered on at 05:56; Start 10/07/17 at 00:00; Stop 10/07/17 at 13:40; Status DC Morphine Sulfate (Morphine 4mg Syringe) 2 mg PRN Q2HR PRN IV PAIN; Start at 19:30 Potassium Chloride (Klor-Con) 40 meq 1X ONCE PO Last administered on 10/07/17at 13:03; Start 10/07/17 at 12:15; Stop 10/07/17 at 12:21; Status DC Furosemide (Lasix) 40 mg 1X ONCE IVP Last administered on 10/07/17at 13:12; Start 10/07/17 at 12:15; Stop 10/07/17 at 12:20; Status DC Aspirin (Aspirin Enteric Coated) 81 mg HS PO Last administered on 10/10/17at 21: 17; Start 10/07/17 at 21:00 Fenofibrate (Tricor) 145 mg HS PO Last administered on 10/10/17at 21:17; Start at 21:00 Tamsulosin HCl (Flomax) 0.4 mg HS PO Last administered on 10/10/17at 21:17; Start 10/07/17 at 21:00 Warfarin Sodium (Coumadin) 1.5 mg QODAY PO ; Start 10/09/17 at 09:00; Stop at 09:00; Status DC Warfarin Sodium (Coumadin) 2 mg QODAY PO ; Start 10/09/17 at 09:00; Stop 10/09/17 at 09:00; Status DC Losartan Potassium (Cozaar) 100 mg QHS PO Last administered on 10/10/17at 21:18; Start 10/07/17 at 21:00 Metoprolol Succinate (Toprol Xl) 200 mg QHS PO Last administered on 10/10/17 21 :16; Start 10/07/17 at 21:00 Warfarin Sodium (Coumadin Per Pharmacy) 1 each PRN DAILY PRN MC SEE COMMENTS Last administered on 10/09/17 13:46; Start 10/07/17 at 12:15 Info (Anti-Coagulation Monitoring By Pharmacy) 1 each PRN DAILY PRN MC SEE COMMENTS; Start 10/07/17 at 12:15; Stop 10/07/17 at 12:22; Status DC Phenazopyridine HCl (Pyridium) 100 mg PRN TID PRN PO URINARY PAIN; Start at 13:00 Lidocaine (Lidoderm) 3 patch DAILY TD Last administered on 10/11/17 09:00; Start 10/07/17 at 14:00 Ceftriaxone Sodium 1 gm/ Sodium Chloride 50 ml @ 100 mls/hr Q24H IV ; Start 10/07/17 at 13:00; Stop 10/07/17 at 13:20; Status DC Potassium Chloride (Klor-Con) 20 meq TID PO Last administered on 10/11/17 09:20 ; Start 10/07/17 at 14:00 Ceftriaxone Sodium (Rocephin) 1 gm Q24H IVP Last administered on 10/10/17 13:16 ; Start 10/07/17 at 13:30 Furosemide (Lasix) 40 mg 1X ONCE IVP ; Start 10/07/17 at 13:30; Stop 10/07/17 at 13:31; Status DC Furosemide (Lasix) 40 mg DAILY IVP Last administered on 10/08/17 08:46; Start 10/08/17 at 09:00; Stop 10/08/17 at 10:48; Status DC Warfarin Sodium (Coumadin) 1.5 mg QODAY PO Last administered on 10/11/17 09:20 ; Start 10/07/17 at 13:30 Lactobacillus Rhamnosus (Culturelle) 1 cap BID PO Last administered on 09:17; Start 10/07/17 at 21:00 Warfarin Sodium (Coumadin) 2 mg QODAY PO Last administered on 10/10/17 09:06; Start 10/08/17 at 09:00 Lidocaine (Lidoderm) 3 patch DAILY TD ; Start 10/07/17 at 13:50; Status UNV Magnesium Sulfate 50 ml @ 25 mls/hr 1X ONCE IV Last administered on 10/08/17at 07:41; Start 10/08/17 at 06:45; Stop 10/08/17 at 08:44; Status DC Albumin Human 50 ml @ 50 mls/hr 1X ONCE IV Last administered on 10/08/17at 10:58 ; Start 10/08/17 at 10:45; Stop 10/08/17 at 11:44; Status DC Furosemide 100 mg/ Sodium Chloride 100 ml @ 5 mls/hr CONT PRN IV SEE I/O RECORD Last administered on 10/09/17 08:17; Start 10/08/17 at 10:45; Stop at 16:40; Status DC Magnesium Oxide (Magnesium Oxide) 400 mg BID PO Last administered on 10/09/17at 08:31; Start 10/09/17 at 09:00; Stop 10/09/17 at 14:27; Status DC Magnesium Oxide (Magnesium Oxide) 400 mg TID PO Last administered on 10/10/17at 09:05; Start 10/09/17 at 14:30; Stop 10/10/17 at 09:01; Status DC Bumetanide (Bumex) 1 mg BID92 IV Last administered on 10/10/17at 14:00; Start 10/09/17 at 17:00; Stop 10/10/17 at 18:20; Status DC Acetaminophen/ Hydrocodone Bitart (Lortab 5/325) 1 tab PRN Q8HRS PRN PO PAIN Last administered on 10/10/17at 11:15; Start 10/10/17 at 11:15 Albumin Human 50 ml @ 50 mls/hr BID IV Last administered on 10/11/17at 09:21; Start 10/10/17 at 11:15 Bumetanide (Bumex) 2 mg BID92 IV Last administered on 10/11/17 09:18; Start 10/11/17 at 09:00 Metolazone (Zaroxolyn) 2.5 mg DAILY PO Last administered on 10/11/17at 09:18; Start 10/10/17 at 18:30 Active Scripts Active Reported Triamcinolone Acetonide 15 Gm Cream..g. 1 Jhony TP DAILY apply to LE bilateral TP every day shift. Cleanse, apply cream, xeroform gauze. Then dry dressing, roll gauze. Compression dressing. Tamsulosin Hcl 0.4 Mg Cap.er.24h 1 Cap PO HS Tylenol (Acetaminophen) 325 Mg Tablet 2 Tab PO PRN Q6HRS Zoloft (Sertraline Hcl) 25 Mg Tablet 1 Tab PO HS Cozaar (Losartan Potassium) 100 Mg Tablet 100 Mg PO HS Coumadin (Warfarin Sodium) 1 Mg Tablet 1.5 Tab PO QODAY 1.5 MG Every Wed, Wed, , Wed Coumadin (Warfarin Sodium) 1 Mg Tablet 2 Mg PO QODAY 2mg due Wednesday, Wed, Wed Potassium Chloride 10 Meq Capsule.er 1 Cap PO DAILY LAST DOSE GIVEN: DATE: TODAY TIME: AM NEXT DOSE DUE: DATE: TOMORROW TIME: AM Vitamin E (Vitamin E Acetate) 400 Unit Capsule 400 Unit PO DAILY NEXT DOSE DUE: DATE: RESTART TODAY TIME: WHEN YOU GET HOME NEXT DOSE DUE: DATE: RESTART TODAY TIME: WHEN YOU GET HOME Fenofibrate (Fenofibrate Nanocrystallized) 145 Mg Tablet 1 Tab PO HS LAST DOSE GIVEN: DATE: YESTER TIME: AT BEDTIME NEXT DOSE DUE: DATE: TODAY TIME: AT BEDTIME Calcium 500 + Vit D 200 Tablet (Calcium Carbonate/Vitamin D3) 1 Each Tablet 1 Each PO DAILY LAST DOSE GIVEN: DATE: TODAY TIME: AM NEXT DOSE DUE: DATE: TOMORR TIME: AM Loratadine 10 Mg Tablet 1 Tab PO DAILY LAST DOSE GIVEN: DATE: TIME: AM NEXT DOSE DUE: DATE: TOMORROW TIME: AM Aspir 81 (Aspirin) 81 Mg Tablet.dr 81 Mg PO HS LAST DOSE GIVEN: DATE: TODAY TIME: AM NEXT DOSE DUE: DATE: TOMORROW TIME: AM Flax Seed Oil (Flaxseed Oil) 1,000 Mg Capsule 1,000 Mg PO DAILY NEXT DOSE DUE: DATE: RESTART TODAY TIME: WHEN YOU GET HOME NEXT DOSE DUE: DATE: RESTART TODAY TIME: WHEN YOU GET HOME Fish Oil Softgel ([place]-3 Fatty Acids/Fish Oil) 1 Each Capsule 2 Each PO DAILY LAST DOSE GIVEN: DATE: TIME: AM NEXT DOSE DUE: DATE: TODAY TIME: PM Furosemide 20 Mg Tablet 40 Mg PO DAILY LAST DOSE GIVEN: DATE: Today TIME: AM NEXT DOSE DUE: DATE: Tomorrow TIME: AM TIME: PM THEN TAKE 40 MG ONCE DAILY STARTING Wednesday Metoprolol Succinate ( Xl ) (Metoprolol Succinate) 200 Mg Tab.er.24h 200 Mg PO DAILY LAST DOSE GIVEN: DATE: YESTERDAY TIME: AT BEDTIME NEXT DOSE DUE: DATE: TODAY TIME: AT BEDTIME Vitals/I & O Vital Sign - Last 24 Hours 10/10/17 10/10/17 10/10/17 10/10/17 11:06 11:15 12:20 14:42 Temp 97.5 97.5 Pulse 69 71 Resp 20 20 B/P (MAP) 94/54 (67) 95/55 (68) Pulse Ox 97 97 97 97 O2 Delivery Nasal Cannula Nasal Cannula Nasal Cannula Nasal Cannula O2 Flow Rate 2.0 2.0 2.0 2.0 10/10/17 10/10/17 10/10/17 10/10/17 19:28 20:30 21:16 21:18 Temp 97.0 Pulse 71 71 71 Resp 16 B/P (MAP) 103/66 (78) 103/66 103/66 Pulse Ox 98 O2 Delivery Nasal Cannula Nasal Cannula O2 Flow Rate 2.0 2.0 10/11/17 05:00 Temp 97.5 Pulse 56 Resp 20 B/P (MAP) 101/60 (74) Pulse Ox 90 O2 Delivery Nasal Cannula O2 Flow Rate 2.0 Intake and Output 10/10/17 10/10/17 10/11/17 15:00 23:00 07:00 Intake Total 360 ml 920 ml 170 ml Output Total 350 ml 300 ml 300 ml Balance 10 ml 620 ml -130 ml KRISTIE DAVIS [employer] October 11, 2017 09:54
[2017-10-11] MEDS ORDERED: metOLazone 2.5 MG TABLET PO ONE (10:00)
[2017-10-11 13:39] VITALS: BP 111/66
[2017-10-11] MEDS: BUMETANIDE 2.5 MG/10 ML VIAL. IV SCH (14:46)
[2017-10-11 19:15] VITALS: BP 102/62
[2017-10-11] MEDS: FENOFIBRATE NANOCRYSTALLIZED 145 MG TABLET PO SCH (20:55)
[2017-10-11] MEDS: TAMSULOSIN 0.4 MG CAP.ER.24H. PO SCH (20:56)
[2017-10-11] MEDS: ASPIRIN ENTERIC COATED 81 MG TABLET.DR. PO SCH (20:56)
[2017-10-11 21:00] VITALS: BP 101/48
[2017-10-11] MEDS: LOSARTAN 50 MG TABLET. PO SCH (21:00)
[2017-10-11] MEDS: METOPROLOL SUCC 24HR ER 50 MG TAB.ER.24H. PO SCH (21:00)
[2017-10-11 22:41] VITALS: BP 117/40
--- NOTE | 2017-10-12 02:06 | PN ---
DATE: 10/11/2017 SUBJECTIVE: The patient is sitting comfortably in his chair in no apparent distress. He denied any complaint except pain in both knee joints. No shortness of breath. No chest pain. No orthopnea or paroxysmal nocturnal dyspnea. His urine output all along has been poor. Now with the increase in Bumex, his urine output has dramatically increased. He has already had about 1000 mL that already emptied and he has another 400 mL in his urine bag. PHYSICAL EXAMINATION: GENERAL: When I saw him, he looked well and was clearly in no apparent respiratory distress, pale. No jaundice, cyanosis, or thyromegaly. No jugular venous distension. No lower limb edema. VITAL SIGNS: His heart rate was 56, blood pressure was 101/60, temperature was 97.5, respiratory rate was 20, and oxygen saturation was 90% on 2 liters of oxygen. HEAD, EYES, EARS, NOSE AND THROAT: Showed normocephalic, atraumatic. NECK: Supple. HEART: Showed normal first and second heart sounds with no gallop, rub or murmur. CHEST: Clear to auscultation. No crepitation or rhonchi. ABDOMEN: Slightly distended, soft, nontender. NEUROLOGIC: He is awake, alert, responding appropriately. All cranial nerves intact. He moves extremities without difficulty. He is able to walk with a walker. EXTREMITIES: Showed no clubbing, cyanosis. Marked bilateral lower limb edema, this slowly improving. His intake over the last 24 hours was 1450, output was 950. LABORATORY DATA: As of this morning showed a white cell count of 9900, hemoglobin 12.5, hematocrit 37, MCV 95 and platelet count of 190,000. His chemistry showed a serum sodium 142, potassium 4.1, chloride 104, bicarbonate 38, anion gap of 0, BUN 34, creatinine 0.9, estimated GFR was 81 mL per minute. His glucose was 89, calcium was 8.6. His total protein was 6.1, albumin 2.2. ASSESSMENT: 1. Acute on chronic diastolic congestive heart failure, now on albumin and Bumex 2 mg IV twice a day. 2. Resistant atrial fibrillation. He is on Coumadin, metoprolol tartrate, controlled, well anticoagulated. 3. Chronic kidney disease. However, creatinine remained within normal range. GFR is 93 mL per minute. 4. Severe protein calorie malnutrition, serum albumin is 2.1 g/dL likely because of third spacing. 5. Hypomagnesemia, improved with magnesium yesterday was 1.8. PLAN: To continue with Bumex, the human albumin. Continue to monitor his lab work, particularly his electrolytes. DICK FORBES MD DR: GRAHAM/rodolfo JOB#: [id number] / [id number]
[2017-10-12 06:20] VITALS: BP 119/67
--- NOTE | 2017-10-12 08:55 | PDOC ---
PROGRESS NOTES Diagnosis Problem Problems Medical Problems: (1) A-fib Status: Acute (2) Acute exacerbation of CHF (congestive heart failure) Status: Acute (3) Chronic renal insufficiency Status: Acute Assessment Problems Medical Problems: (1) A-fib Status: Acute (2) Acute exacerbation of CHF (congestive heart failure) Status: Acute (3) Chronic renal insufficiency Status: Acute 1. Acute on chronic diastolic heart failure - good diuresis last 24 hours with IV bumex and metolazone. Continue IV diuresis next 24 hours then re-evaluate 2. persistent afib - on warfarin and metoprolol 3. CKD - Cr remains WNL. Mild elevation in BUN. Problems: Subjective denies chest pain or dyspnea. feels like abdomen is less swollen but legs continue to be the same. no palpitations, lightheadedness Objective Vital Signs Date Time Temp Pulse Resp B/P (MAP) Pulse Ox O2 Delivery O2 Flow Rate FiO2 10/12/17 06:20 97.6 68 20 119/67 (84) 93 Nasal Cannula 2.0 Intake and Output 10/12/17 07:00 Intake Total 1660.93 ml Output Total 5800 ml Balance -4139.07 ml Intake Oral 1480 ml IV Total 180.93 ml Output Urine Total 5800 ml # Bowel Movements 1 Abdomen: Normal bowel sounds, Soft, Other (less edematous) Heart: Normal S1, Normal S2 Extremities: Other (unchanged edema to mid thigh) General: Alert, Oriented X3, Cooperative, No acute distress HEENT: Atraumatic, EOMI Lungs: Other (decreased bilaterally, no crackles, wheezes or ronchi) Neuro: Normal speech, Strength at 5/5 X4 ext Psych/Mental Status: Mental status NL, Mood NL Review of Relevant I have reviewed the following items constantin (where applicable) has been applied. Labs Laboratory Tests Test 10/11/17 06:30 10/12/17 06:05 Prothrombin Time 29.1 SEC (9.4-11.4) 26.3 SEC (9.4-11.4) Prothromb Time International Ratio 2.9 (0.9-1.1) 2.6 (0.9-1.1) Sodium Level 142 mmol/L (136-145) Potassium Level 4.1 mmol/L (3.5-5.1) Chloride Level 104 mmol/L (98-107) Carbon Dioxide Level 38 mmol/L (21-32) Anion Gap 0 (6-14) Blood Urea Nitrogen 34 mg/dL (8-26) Creatinine 0.9 mg/dL (0.7-1.3) Estimated GFR (Cockcroft-Gault) 81.0 Glucose Level 89 mg/dL (70-99) Calcium Level 8.6 mg/dL (8.5-10.1) Microbiology 10/06/17 Urine Culture - Final, Complete 10/06/17 Urine Culture Result 1 (ROSALIO) - Final, Complete 10/06/17 Urine Culture Result 2 (RSOALIO) - Final, Complete 10/06/17 Antimicrobic Susceptibility - Final, Complete Medications Current Medications Furosemide (Lasix) 40 mg 1X ONCE IVP Last administered on 10/06/17at 18:21; Start 10/06/17 at 18:15; Stop 10/06/17 at 18:16; Status DC Nitroglycerin (Nitro-Bid Oint) 0.25 inch Q6HRS TP Last administered on at 05:56; Start 10/07/17 at 00:00; Stop 10/07/17 at 13:40; Status DC Morphine Sulfate (Morphine 4mg Syringe) 2 mg PRN Q2HR PRN IV PAIN; Start at 19:30 Potassium Chloride (Klor-Con) 40 meq 1X ONCE PO Last administered on 10/07/17 13:03; Start 10/07/17 at 12:15; Stop 10/07/17 at 12:21; Status DC Furosemide (Lasix) 40 mg 1X ONCE IVP Last administered on 10/07/17at 13:12; Start 10/07/17 at 12:15; Stop 10/07/17 at 12:20; Status DC Aspirin (Aspirin Enteric Coated) 81 mg HS PO Last administered on 10/11/17 20: 56; Start 10/07/17 at 21:00 Fenofibrate (Tricor) 145 mg HS PO Last administered on 10/11/17at 20:55; Start at 21:00 Tamsulosin HCl (Flomax) 0.4 mg HS PO Last administered on 10/11/17at 20:56; Start 10/07/17 at 21:00 Warfarin Sodium (Coumadin) 1.5 mg QODAY PO ; Start 10/09/17 at 09:00; Stop at 09:00; Status DC Warfarin Sodium (Coumadin) 2 mg QODAY PO ; Start 10/09/17 at 09:00; Stop 10/09/17 at 09:00; Status DC Losartan Potassium (Cozaar) 100 mg QHS PO Last administered on 10/10/17at 21:18; Start 10/07/17 at 21:00 Metoprolol Succinate (Toprol Xl) 200 mg QHS PO Last administered on 10/10/17at 21 :16; Start 10/07/17 at 21:00 Warfarin Sodium (Coumadin Per Pharmacy) 1 each PRN DAILY PRN MC SEE COMMENTS Last administered on 10/11/17at 12:43; Start 10/07/17 at 12:15 Info (Anti-Coagulation Monitoring By Pharmacy) 1 each PRN DAILY PRN MC SEE COMMENTS; Start 10/07/17 at 12:15; Stop 10/07/17 at 12:22; Status DC Phenazopyridine HCl (Pyridium) 100 mg PRN TID PRN PO URINARY PAIN; Start at 13:00 Lidocaine (Lidoderm) 3 patch DAILY TD Last administered on 10/11/17at 09:00; Start 10/07/17 at 14:00 Ceftriaxone Sodium 1 gm/ Sodium Chloride 50 ml @ 100 mls/hr Q24H IV ; Start 10/07/17 at 13:00; Stop 10/07/17 at 13:20; Status DC Potassium Chloride (Klor-Con) 20 meq TID PO Last administered on 10/11/17at 20:56 ; Start 10/07/17 at 14:00 Ceftriaxone Sodium (Rocephin) 1 gm Q24H IVP Last administered on 10/10/17at 13:16 ; Start 10/07/17 at 13:30; Stop 10/11/17 at 13:14; Status DC Furosemide (Lasix) 40 mg 1X ONCE IVP ; Start 10/07/17 at 13:30; Stop 10/07/17 at 13:31; Status DC Furosemide (Lasix) 40 mg DAILY IVP Last administered on 10/08/17at 08:46; Start 10/08/17 at 09:00; Stop 10/08/17 at 10:48; Status DC Warfarin Sodium (Coumadin) 1.5 mg QODAY PO Last administered on 10/11/17 09:20 ; Start 10/07/17 at 13:30 Lactobacillus Rhamnosus (Culturelle) 1 cap BID PO Last administered on 20:56; Start 10/07/17 at 21:00 Warfarin Sodium (Coumadin) 2 mg QODAY PO Last administered on 10/10/17 09:06; Start 10/08/17 at 09:00 Lidocaine (Lidoderm) 3 patch DAILY TD ; Start 10/07/17 at 13:50; Status UNV Magnesium Sulfate 50 ml @ 25 mls/hr 1X ONCE IV Last administered on 10/08/17at 07:41; Start 10/08/17 at 06:45; Stop 10/08/17 at 08:44; Status DC Albumin Human 50 ml @ 50 mls/hr 1X ONCE IV Last administered on 10/08/17at 10:58 ; Start 10/08/17 at 10:45; Stop 10/08/17 at 11:44; Status DC Furosemide 100 mg/ Sodium Chloride 100 ml @ 5 mls/hr CONT PRN IV SEE I/O RECORD Last administered on 10/09/17 08:17; Start 10/08/17 at 10:45; Stop at 16:40; Status DC Magnesium Oxide (Magnesium Oxide) 400 mg BID PO Last administered on 10/09/17 08:31; Start 10/09/17 at 09:00; Stop 10/09/17 at 14:27; Status DC Magnesium Oxide (Magnesium Oxide) 400 mg TID PO Last administered on 10/10/17 09:05; Start 10/09/17 at 14:30; Stop 10/10/17 at 09:01; Status DC Bumetanide (Bumex) 1 mg BID92 IV Last administered on 10/10/17 14:00; Start 10/09/17 at 17:00; Stop 10/10/17 at 18:20; Status DC Acetaminophen/ Hydrocodone Bitart (Lortab 5/325) 1 tab PRN Q8HRS PRN PO PAIN Last administered on 10/10/17 11:15; Start 10/10/17 at 11:15 Albumin Human 50 ml @ 50 mls/hr BID IV Last administered on 5/7/18at 20:55; Start 10/10/17 at 11:15 Bumetanide (Bumex) 2 mg BID92 IV Last administered on 10/11/17at 09:18; Start 10/11/17 at 09:00; Stop 10/11/17 at 10:31; Status DC Metolazone (Zaroxolyn) 2.5 mg DAILY PO Last administered on 10/11/17at 09:18; Start 10/10/17 at 18:30; Stop 10/11/17 at 09:50; Status DC Metolazone (Zaroxolyn) 5 mg DAILY PO ; Start 10/12/17 at 09:00 Metolazone (Zaroxolyn) 2.5 mg 1X ONCE PO Last administered on 10/11/17at 10:05; Start 10/11/17 at 10:00; Stop 10/11/17 at 10:01; Status DC Bumetanide (Bumex) 2 mg BID92 IV Last administered on 10/11/17at 14:46; Start 10/11/17 at 14:00 Levofloxacin/ Dextrose 50 ml @ 50 mls/hr Q24H IV Last administered on 10/11/17at 14:46; Start 10/11/17 at 13:30 Active Scripts Active Reported Triamcinolone Acetonide 15 Gm Cream..g. 1 Jhony TP DAILY apply to LE bilateral TP every day shift. Cleanse, apply cream, xeroform gauze. Then dry dressing, roll gauze. Compression dressing. Tamsulosin Hcl 0.4 Mg Cap.er.24h 1 Cap PO HS Tylenol (Acetaminophen) 325 Mg Tablet 2 Tab PO PRN Q6HRS Zoloft (Sertraline Hcl) 25 Mg Tablet 1 Tab PO HS Cozaar (Losartan Potassium) 100 Mg Tablet 100 Mg PO HS Coumadin (Warfarin Sodium) 1 Mg Tablet 1.5 Tab PO QODAY 1.5 MG Every Wed, Wed, , Wed Coumadin (Warfarin Sodium) 1 Mg Tablet 2 Mg PO QODAY 2mg due Wednesday, Wed, Wed Potassium Chloride 10 Meq Capsule.er 1 Cap PO DAILY LAST DOSE GIVEN: DATE: TODAY TIME: AM NEXT DOSE DUE: DATE: TOMORROW TIME: AM Vitamin E (Vitamin E Acetate) 400 Unit Capsule 400 Unit PO DAILY NEXT DOSE DUE: DATE: RESTART TODAY TIME: WHEN YOU GET HOME NEXT DOSE DUE: DATE: RESTART TODAY TIME: WHEN YOU GET HOME Fenofibrate (Fenofibrate Nanocrystallized) 145 Mg Tablet 1 Tab PO HS LAST DOSE GIVEN: DATE: YESTERDAY TIME: AT BEDTIME NEXT DOSE DUE: DATE: TODAY TIME: AT BEDTIME Calcium 500 + Vit D 200 Tablet (Calcium Carbonate/Vitamin D3) 1 Each Tablet 1 Each PO DAILY LAST DOSE GIVEN: DATE: TODAY TIME: AM NEXT DOSE DUE: DATE: TOMORROW TIME: AM Loratadine 10 Mg Tablet 1 Tab PO DAILY LAST DOSE GIVEN: DATE: TODAY TIME: AM NEXT DOSE DUE: DATE: TOMORROW TIME: AM Aspir 81 (Aspirin) 81 Mg Tablet.dr 81 Mg PO HS LAST DOSE GIVEN: DATE: TODAY TIME: AM NEXT DOSE DUE: DATE: TOMORR TIME: AM Flax Seed Oil (Flaxseed Oil) 1,000 Mg Capsule 1,000 Mg PO DAILY NEXT DOSE DUE: DATE: RESTART TODAY TIME: WHEN YOU GET HOME NEXT DOSE DUE: DATE: RESTART TODAY TIME: WHEN YOU GET HOME Fish Oil Softgel ([place]-3 Fatty Acids/Fish Oil) 1 Each Capsule 2 Each PO DAILY LAST DOSE GIVEN: DATE: TODAY TIME: AM NEXT DOSE DUE: DATE: TODAY TIME: PM Furosemide 20 Mg Tablet 40 Mg PO DAILY LAST DOSE GIVEN: DATE: Today TIME: AM NEXT DOSE DUE: DATE: Tomorr TIME: AM TIME: PM THEN TAKE 40 MG ONCE DAILY STARTING Wednesday Metoprolol Succinate ( Xl ) (Metoprolol Succinate) 200 Mg Tab.er.24h 200 Mg PO DAILY LAST DOSE GIVEN: DATE: YESTERDAY TIME: AT BEDTIME NEXT DOSE DUE: DATE: TODAY TIME: AT BEDTIME Vitals/I & O Vital Sign - Last 24 Hours 10/11/17 10/11/17 10/11/17 10/11/17 13:39 19:15 19:15 21:00 Temp 97.6 97.6 Pulse 80 77 65 Resp 22 20 B/P (MAP) 111/66 (81) 102/62 (75) 101/48 Pulse Ox 92 94 O2 Delivery Nasal Cannula Nasal Cannula Nasal Cannula O2 Flow Rate 2.0 2.0 2.0 10/11/17 10/11/17 10/11/17 10/12/17 21:00 21:00 22:41 06:20 Temp 97.4 97.6 Pulse 65 65 69 68 Resp 20 B/P (MAP) 101/48 101/48 (65) 117/40 (65) 119/67 (84) Pulse Ox 93 93 O2 Delivery Nasal Cannula Nasal Cannula Nasal Cannula O2 Flow Rate 2.0 2.0 2.0 Intake and Output 10/11/17 10/11/17 10/12/17 15:00 23:00 07:00 Intake Total 1190 ml 445.93 ml 25 ml Output Total 2350 ml 2350 ml 1100 ml Balance -1160 ml -1904.07 ml -1075 ml KRISTIE DAVIS [employer] October 12, 2017 08:55
[2017-10-12] MEDS: LACTOBACILLUS RHAMNOSUS GG 1 CAPSULE. PO SCH ×2 (09:07→21:06)
[2017-10-12] MEDS: WARFARIN 1 MG TABLET. PO SCH (09:08)
[2017-10-12] MEDS: POTASSIUM CHLORIDE 20 MEQ TABLET.ER. PO SCH ×3 (09:08→21:07)
[2017-10-12] MEDS: metOLazone 5 MG TABLET PO SCH (09:09)
[2017-10-12] MEDS: LIDOCAINE (700MG/PATCH) PATCH. TD SCH (09:10)
[2017-10-12] MEDS: BUMETANIDE 2.5 MG/10 ML VIAL. IV SCH ×2 (09:10→14:11)
[2017-10-12 09:48] LABS: CALCIUM 9.1 mg/dL (8.5-10.1)
[2017-10-12 09:49] LABS: BLOOD UREA NITROGEN 35 mg/dL (8-26); CARBON DIOXIDE 42 mmol/L (21-32); CHLORIDE 104 mmol/L (98-107); CREATININE 0.9 mg/dL (0.7-1.3); GLUCOSE 92 mg/dL (70-99); POTASSIUM 3.5 mmol/L (3.5-5.1); SODIUM 144 mmol/L (136-145)
[2017-10-12] MEDS: ALBUMIN HUMAN 25% 50 ML IV SCH ×2 (10:18→21:07)
[2017-10-12 10:26] VITALS: BP 98/61
[2017-10-12 11:35] LABS: MAGNESIUM 1.8 mg/dL (1.8-2.4)
[2017-10-12 16:17] VITALS: BP 127/68
[2017-10-12 18:40] VITALS: BP 102/64
[2017-10-12] MEDS: LOSARTAN 50 MG TABLET. PO SCH (21:00)
[2017-10-12] MEDS: METOPROLOL SUCC 24HR ER 50 MG TAB.ER.24H. PO SCH (21:00)
[2017-10-12] MEDS: TAMSULOSIN 0.4 MG CAP.ER.24H. PO SCH (21:06)
[2017-10-12] MEDS: FENOFIBRATE NANOCRYSTALLIZED 145 MG TABLET PO SCH (21:06)
[2017-10-12] MEDS: ASPIRIN ENTERIC COATED 81 MG TABLET.DR. PO SCH (21:06)
[2017-10-12 21:20] VITALS: BP 111/67
[2017-10-12 22:57] VITALS: BP 118/68
[2017-10-13 06:25] VITALS: BP 124/65
[2017-10-13 06:48] LABS: CALCIUM 8.9 mg/dL (8.5-10.1); CREATININE 0.8 mg/dL (0.7-1.3); GFR 92.8; MAGNESIUM 1.5 mg/dL (1.8-2.4); POTASSIUM 3.2 mmol/L (3.5-5.1)
[2017-10-13] MEDS: ALBUMIN HUMAN 25% 50 ML IV SCH ×2 (08:46→21:34)
[2017-10-13] MEDS: metOLazone 5 MG TABLET PO SCH (08:47)
[2017-10-13] MEDS: LACTOBACILLUS RHAMNOSUS GG 1 CAPSULE. PO SCH ×2 (08:47→21:33)
[2017-10-13] MEDS: POTASSIUM CHLORIDE 20 MEQ TABLET.ER. PO SCH ×2 (08:47→21:33)
[2017-10-13] MEDS: WARFARIN 1 MG TABLET. PO SCH (08:49)
[2017-10-13] MEDS: BUMETANIDE 2.5 MG/10 ML VIAL. IV SCH ×2 (08:53→14:00)
[2017-10-13] MEDS: LIDOCAINE (700MG/PATCH) PATCH. TD SCH (08:53)
--- NOTE | 2017-10-13 09:27 | PDOC ---
PROGRESS NOTES Diagnosis Problem Problems Medical Problems: (1) A-fib Status: Acute (2) Acute exacerbation of CHF (congestive heart failure) Status: Acute (3) Chronic renal insufficiency Status: Acute Assessment Problems Medical Problems: (1) A-fib Status: Acute (2) Acute exacerbation of CHF (congestive heart failure) Status: Acute (3) Chronic renal insufficiency Status: Acute 1. Acute on chronic diastolic heart failure - Continued good diuresis IV bumex and metolazone however he continues to have significant edema. Continue IV diuresis. 2. persistent afib - rate controlled. on warfarin and metoprolol 3. CKD - Cr remains WNL. Mild elevation in BUN. 4. hypokalemia - replace now and increase daily dosing Problems: Subjective continues to be swollen otherwise states he is feeling fine. Objective Vital Signs Date Time Temp Pulse Resp B/P (MAP) Pulse Ox O2 Delivery O2 Flow Rate FiO2 10/13/17 06:25 97.6 81 18 124/65 (84) 96 Nasal Cannula 2.0 Intake and Output 10/13/17 07:00 Intake Total 1703.1 ml Output Total 5375 ml Balance -3671.9 ml Intake Oral 1530 ml IV Total 173.1 ml Output Urine Total 5375 ml # Bowel Movements 1 Abdomen: Normal bowel sounds, Soft Heart: Normal S1, Normal S2 Extremities: Other (no change in peripheral edema, +sacral edema) General: Alert, Oriented X3, Cooperative, No acute distress Lungs: Clear to auscultation Neuro: Normal speech, Strength at 5/5 X4 ext Psych/Mental Status: Mental status NL, Mood NL Review of Relevant I have reviewed the following items constantin (where applicable) has been applied. Labs Laboratory Tests Test 10/12/17 06:05 10/13/17 06:10 Prothrombin Time 26.3 SEC (9.4-11.4) 23.4 SEC (9.4-11.4) Prothromb Time International Ratio 2.6 (0.9-1.1) 2.3 (0.9-1.1) Sodium Level 144 mmol/L (136-145) 145 mmol/L (136-145) Potassium Level 3.5 mmol/L (3.5-5.1) 3.2 mmol/L (3.5-5.1) Chloride Level 104 mmol/L (98-107) 102 mmol/L (98-107) Carbon Dioxide Level 42 mmol/L (21-32) 43 mmol/L (21-32) Anion Gap (6-14) 0 (6-14) Blood Urea Nitrogen 35 mg/dL (8-26) 33 mg/dL (8-26) Creatinine 0.9 mg/dL (0.7-1.3) 0.8 mg/dL (0.7-1.3) Estimated GFR (Cockcroft-Gault) 81.0 92.8 Glucose Level 92 mg/dL (70-99) 84 mg/dL (70-99) Calcium Level 9.1 mg/dL (8.5-10.1) 8.9 mg/dL (8.5-10.1) Magnesium Level 1.8 mg/dL (1.8-2.4) 1.5 mg/dL (1.8-2.4) Microbiology 10/06/17 Urine Culture - Final, Complete 10/06/17 Urine Culture Result 1 (ROSALIO) - Final, Complete 10/06/17 Urine Culture Result 2 (ROSALIO) - Final, Complete 10/06/17 Antimicrobic Susceptibility - Final, Complete Medications Current Medications Furosemide (Lasix) 40 mg 1X ONCE IVP Last administered on 10/06/17at 18:21; Start 10/06/17 at 18:15; Stop 10/06/17 at 18:16; Status DC Nitroglycerin (Nitro-Bid Oint) 0.25 inch Q6HRS TP Last administered on at 05:56; Start 10/07/17 at 00:00; Stop 10/07/17 at 13:40; Status DC Morphine Sulfate (Morphine 4mg Syringe) 2 mg PRN Q2HR PRN IV PAIN; Start at 19:30 Potassium Chloride (Klor-Con) 40 meq 1X ONCE PO Last administered on 10/07/17at 13:03; Start 10/07/17 at 12:15; Stop 10/07/17 at 12:21; Status DC Furosemide (Lasix) 40 mg 1X ONCE IVP Last administered on 10/07/17at 13:12; Start 10/07/17 at 12:15; Stop 10/07/17 at 12:20; Status DC Aspirin (Aspirin Enteric Coated) 81 mg HS PO Last administered on 5/8/18at 21: 06; Start 10/07/17 at 21:00 Fenofibrate (Tricor) 145 mg HS PO Last administered on 10/12/17 21:06; Start at 21:00 Tamsulosin HCl (Flomax) 0.4 mg HS PO Last administered on 10/12/17 21:06; Start 10/07/17 at 21:00 Warfarin Sodium (Coumadin) 1.5 mg QODAY PO ; Start 10/09/17 at 09:00; Stop at 09:00; Status DC Warfarin Sodium (Coumadin) 2 mg QODAY PO ; Start 10/09/17 at 09:00; Stop 10/09/17 at 09:00; Status DC Losartan Potassium (Cozaar) 100 mg QHS PO Last administered on 10/10/17 21:18; Start 10/07/17 at 21:00 Metoprolol Succinate (Toprol Xl) 200 mg QHS PO Last administered on 10/10/17 21 :16; Start 10/07/17 at 21:00 Warfarin Sodium (Coumadin Per Pharmacy) 1 each PRN DAILY PRN MC SEE COMMENTS Last administered on 10/12/17 13:15; Start 10/07/17 at 12:15 Info (Anti-Coagulation Monitoring By Pharmacy) 1 each PRN DAILY PRN MC SEE COMMENTS; Start 10/07/17 at 12:15; Stop 10/07/17 at 12:22; Status DC Phenazopyridine HCl (Pyridium) 100 mg PRN TID PRN PO URINARY PAIN; Start at 13:00 Lidocaine (Lidoderm) 3 patch DAILY TD Last administered on 10/13/17at 08:53; Start 10/07/17 at 14:00 Ceftriaxone Sodium 1 gm/ Sodium Chloride 50 ml @ 100 mls/hr Q24H IV ; Start 10/07/17 at 13:00; Stop 10/07/17 at 13:20; Status DC Potassium Chloride (Klor-Con) 20 meq TID PO Last administered on 10/13/17at 08:47 ; Start 10/07/17 at 14:00 Ceftriaxone Sodium (Rocephin) 1 gm Q24H IVP Last administered on 10/10/17at 13:16 ; Start 10/07/17 at 13:30; Stop 10/11/17 at 13:14; Status DC Furosemide (Lasix) 40 mg 1X ONCE IVP ; Start 10/07/17 at 13:30; Stop 10/07/17 at 13:31; Status DC Furosemide (Lasix) 40 mg DAILY IVP Last administered on 10/08/17at 08:46; Start 10/08/17 at 09:00; Stop 10/08/17 at 10:48; Status DC Warfarin Sodium (Coumadin) 1.5 mg QODAY PO Last administered on 10/13/17at 08:49 ; Start 10/07/17 at 13:30 Lactobacillus Rhamnosus (Culturelle) 1 cap BID PO Last administered on 08:47; Start 10/07/17 at 21:00 Warfarin Sodium (Coumadin) 2 mg QODAY PO Last administered on 10/12/17at 09:08; Start 10/08/17 at 09:00 Lidocaine (Lidoderm) 3 patch DAILY TD ; Start 10/07/17 at 13:50; Status UNV Magnesium Sulfate 50 ml @ 25 mls/hr 1X ONCE IV Last administered on 10/08/17at 07:41; Start 10/08/17 at 06:45; Stop 10/08/17 at 08:44; Status DC Albumin Human 50 ml @ 50 mls/hr 1X ONCE IV Last administered on 10/08/17at 10:58 ; Start 10/08/17 at 10:45; Stop 10/08/17 at 11:44; Status DC Furosemide 100 mg/ Sodium Chloride 100 ml @ 5 mls/hr CONT PRN IV SEE I/O RECORD Last administered on 10/09/17at 08:17; Start 10/08/17 at 10:45; Stop at 16:40; Status DC Magnesium Oxide (Magnesium Oxide) 400 mg BID PO Last administered on 10/09/17at 08:31; Start 10/09/17 at 09:00; Stop 10/09/17 at 14:27; Status DC Magnesium Oxide (Magnesium Oxide) 400 mg TID PO Last administered on 10/10/17at 09:05; Start 10/09/17 at 14:30; Stop 10/10/17 at 09:01; Status DC Bumetanide (Bumex) 1 mg BID92 IV Last administered on 10/10/17at 14:00; Start 10/09/17 at 17:00; Stop 10/10/17 at 18:20; Status DC Acetaminophen/ Hydrocodone Bitart (Lortab 5/325) 1 tab PRN Q8HRS PRN PO PAIN Last administered on 10/10/17at 11:15; Start 10/10/17 at 11:15 Albumin Human 50 ml @ 50 mls/hr BID IV Last administered on 10/13/17at 08:46; Start 10/10/17 at 11:15 Bumetanide (Bumex) 2 mg BID92 IV Last administered on 10/11/17at 09:18; Start 10/11/17 at 09:00; Stop 10/11/17 at 10:31; Status DC Metolazone (Zaroxolyn) 2.5 mg DAILY PO Last administered on 10/11/17at 09:18; Start 10/10/17 at 18:30; Stop 10/11/17 at 09:50; Status DC Metolazone (Zaroxolyn) 5 mg DAILY PO Last administered on 10/13/17at 08:47; Start 10/12/17 at 09:00 Metolazone (Zaroxolyn) 2.5 mg 1X ONCE PO Last administered on 10/11/17at 10:05; Start 10/11/17 at 10:00; Stop 10/11/17 at 10:01; Status DC Bumetanide (Bumex) 2 mg BID92 IV Last administered on 10/13/17at 08:53; Start 10/11/17 at 14:00 Levofloxacin/ Dextrose 50 ml @ 50 mls/hr Q24H IV Last administered on 10/12/17at 14:10; Start 10/11/17 at 13:30 Active Scripts Active Reported Triamcinolone Acetonide 15 Gm Cream..g. 1 Jhony TP DAILY apply to LE bilateral TP every day shift. Cleanse, apply cream, xeroform gauze. Then dry dressing, roll gauze. Compression dressing. Tamsulosin Hcl 0.4 Mg Cap.er.24h 1 Cap PO HS Tylenol (Acetaminophen) 325 Mg Tablet 2 Tab PO PRN Q6HRS Zoloft (Sertraline Hcl) 25 Mg Tablet 1 Tab PO HS Cozaar (Losartan Potassium) 100 Mg Tablet 100 Mg PO HS Coumadin (Warfarin Sodium) 1 Mg Tablet 1.5 Tab PO QODAY 1.5 MG Every Wed, Wed, , Wed Coumadin (Warfarin Sodium) 1 Mg Tablet 2 Mg PO QODAY 2mg due Wednesday, Wed, Wed Potassium Chloride 10 Meq Capsule.er 1 Cap PO DAILY LAST DOSE GIVEN: DATE: TODAY TIME: AM NEXT DOSE DUE: DATE: TOMORROW TIME: AM Vitamin E (Vitamin E Acetate) 400 Unit Capsule 400 Unit PO DAILY NEXT DOSE DUE: DATE: RESTART TODAY TIME: WHEN YOU GET HOME NEXT DOSE DUE: DATE: RESTART TODAY TIME: WHEN YOU GET HOME Fenofibrate (Fenofibrate Nanocrystallized) 145 Mg Tablet 1 Tab PO HS LAST DOSE GIVEN: DATE: YESTER TIME: AT BEDTIME NEXT DOSE DUE: DATE: TODAY TIME: AT BEDTIME Calcium 500 + Vit D 200 Tablet (Calcium Carbonate/Vitamin D3) 1 Each Tablet 1 Each PO DAILY LAST DOSE GIVEN: DATE: TODAY TIME: AM NEXT DOSE DUE: DATE: TOMORROW TIME: AM Loratadine 10 Mg Tablet 1 Tab PO DAILY LAST DOSE GIVEN: DATE: TODAY TIME: AM NEXT DOSE DUE: DATE: TOMORROW TIME: AM Aspir 81 (Aspirin) 81 Mg Tablet.dr 81 Mg PO HS LAST DOSE GIVEN: DATE: TODAY TIME: AM NEXT DOSE DUE: DATE: TOMORROW TIME: AM Flax Seed Oil (Flaxseed Oil) 1,000 Mg Capsule 1,000 Mg PO DAILY NEXT DOSE DUE: DATE: RESTART TODAY TIME: WHEN YOU GET HOME NEXT DOSE DUE: DATE: RESTART TODAY TIME: WHEN YOU GET HOME Fish Oil Softgel (Bracey-3 Fatty Acids/Fish Oil) 1 Each Capsule 2 Each PO DAILY LAST DOSE GIVEN: DATE: TODAY TIME: AM NEXT DOSE DUE: DATE: TODAY TIME: PM Furosemide 20 Mg Tablet 40 Mg PO DAILY LAST DOSE GIVEN: DATE: Today TIME: AM NEXT DOSE DUE: DATE: Tomorrow TIME: AM TIME: PM THEN TAKE 40 MG ONCE DAILY STARTING Wednesday Metoprolol Succinate ( Xl ) (Metoprolol Succinate) 200 Mg Tab.er.24h 200 Mg PO DAILY LAST DOSE GIVEN: DATE: YESTER TIME: AT BEDTIME NEXT DOSE DUE: DATE: TODAY TIME: AT BEDTIME Vitals/I & O Vital Sign - Last 24 Hours 10/12/17 10/12/17 10/12/17 10/12/17 10:26 16:17 18:40 19:30 Temp 97.6 97.4 98.1 Pulse 77 76 102 Resp 20 24 20 B/P (MAP) 98/61 (73) 127/68 (87) 102/64 (77) Pulse Ox 97 97 94 O2 Delivery Nasal Cannula Nasal Cannula Nasal Cannula Nasal Cannula O2 Flow Rate 2.0 2.0 2.0 2.0 10/12/17 10/12/17 10/12/17 10/12/17 21:00 21:00 21:20 22:57 Temp 98.3 Pulse 77 77 77 76 Resp 20 20 B/P (MAP) 111/67 111/67 111/67 (82) 118/68 (85) Pulse Ox 96 99 O2 Delivery Nasal Cannula Nasal Cannula O2 Flow Rate 2.0 2.0 10/13/17 06:25 Temp 97.6 Pulse 81 Resp 18 B/P (MAP) 124/65 (84) Pulse Ox 96 O2 Delivery Nasal Cannula O2 Flow Rate 2.0 Intake and Output 10/12/17 10/12/17 10/13/17 15:00 23:00 07:00 Intake Total 760 ml 943.1 ml Output Total 1875 ml 2350 ml 1150 ml Balance -1115 ml -1406.9 ml -1150 ml 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
[2017-10-13 11:08] VITALS: BP 105/65
[2017-10-13] MEDS ORDERED: POTASSIUM CHLORIDE 20 MEQ TABLET.ER. PO ONE ×2 (11:15→13:00)
[2017-10-13] MEDS ORDERED: MINERAL OIL/PETROLATUM TOPICAL CREAM 113GM JAR. TP PRN (13:00)
[2017-10-13] MEDS ORDERED: MAGNESIUM SULFATE 2GM 50 ML IV ONE (13:00)
[2017-10-13 15:00] VITALS: BP 119/64
--- NOTE | 2017-10-13 19:16 | PN ---
DATE: 10/12/2017 SUBJECTIVE: The patient is sitting in his chair comfortably, in no apparent distress. He denied any chest pain or shortness of breath. He did respond very well yesterday. His total output was about 5800; however, he continued to have swollen the generalized anasarca extending all the way to his mid abdomen. He apparently was seen by his vinyl dipper, who recommended to continue the IV diuresis over the next 24-hour and eventually to be discharged home to continue on oral diuretics. PHYSICAL EXAMINATION: GENERAL: When I saw him this afternoon, he looked well and was clearly in no apparent respiratory distress, slightly pale, but no jaundice, cyanosis, or thyromegaly. No jugular distention, but generalized anasarca and edema extending all the way to the abdominal wall. VITAL SIGNS: His heart rate was 77, blood pressure was 98/61, temperature was 97.6, respiratory rate 20 and oxygen saturation was 97% on 2 liters of oxygen. HEAD, EYES, EARS, NOSE AND THROAT: Showed normocephalic, atraumatic. NECK: Supple. HEART: Showed normal first and second sounds. No gallop, rub or murmur. CHEST: Clear to auscultation. No crepitation or rhonchi. ABDOMEN: Distended, soft, nontender. NEUROLOGIC: He was awake, alert, responding appropriately. Cranial nerves are intact. He ambulates with a walker with assistance. His intake over the last 24 hours was 1660, output was 5800. LABORATORY DATA: As of this morning, his chemistry showed a serum sodium 144, potassium 3.5, chloride 104, bicarbonate 42, anion gap of 0. His BUN is 35, creatinine 0.9. Estimated GFR was 81 mL per minute, his glucose 92, calcium was 9.1, magnesium was 1.8. His prothrombin time was 26.3, INR of 2.6. ASSESSMENT: 1. [id number] diastolic congestive heart failure for which he is now on albumin, Bumex, and metolazone and responding very well. 2. Persistent atrial fibrillation, rate controlled, well anticoagulated, on Coumadin. 3. Chronic kidney disease; however, his creatinine remained stable, within normal range, although his BUN is rising. 4. Severe protein-calorie malnutrition. Serum albumin is only 2.1 gram ____ the hypoalbuminemia is likely the cause of third spacing. 5. Hypomagnesemia, improving. Serum magnesium is now 1.8 mg/dL. PLAN: The plan is to continue with the IV Bumex, metolazone, and albumin for another 24 hour and perhaps consider discharging him home tomorrow. DICK FORBES MD DR: GRAHAM/rodolfo JOB#: [id number] / [id number]
[2017-10-13 20:05] VITALS: BP 111/68
[2017-10-13] MEDS ORDERED: POTASSIUM CHLORIDE 20 MEQ TABLET.ER. PO SCH (21:00)
[2017-10-13] MEDS: LOSARTAN 50 MG TABLET. PO SCH (21:00)
[2017-10-13] MEDS: FENOFIBRATE NANOCRYSTALLIZED 145 MG TABLET PO SCH (21:33)
[2017-10-13] MEDS: TAMSULOSIN 0.4 MG CAP.ER.24H. PO SCH (21:34)
[2017-10-13] MEDS: ASPIRIN ENTERIC COATED 81 MG TABLET.DR. PO SCH (21:34)
[2017-10-13] MEDS: METOPROLOL SUCC 24HR ER 50 MG TAB.ER.24H. PO SCH (21:36)
[2017-10-13 23:00] VITALS: BP 112/66
--- NOTE | 2017-10-13 23:41 | PN ---
DATE: 10/13/2017 SUBJECTIVE: The patient is sitting comfortably in his chair in no apparent distress. He continues to be on IV Bumex and metolazone. His intake yesterday was 1700, output was 5375. His weight is down to 187 from 202. PHYSICAL EXAMINATION: GENERAL: When I examined him today, he looked well and was clearly in no apparent respiratory distress, pale, but no jaundice, cyanosis, or thyromegaly. No jugular venous distention, but bilateral lower limb edema. VITAL SIGNS: His heart rate was 87, blood pressure 105/65, temperature was 97.6, respiratory rate was 18 and oxygen saturation was 99% on 2 liters of oxygen. HEAD, EYES, EARS, NOSE AND THROAT: Showed he is normocephalic, atraumatic. NECK: Supple. HEART: Showed normal first and second sounds. No gallop, rub or murmur. CHEST: Clear to auscultation. No crepitation or rhonchi. ABDOMEN: Distended, soft, nontender. No guarding or rigidity. No organomegaly. Hernial orifices intact. Bowel sounds normal. NEUROLOGIC: He was awake, alert, responding appropriately. All cranial nerves intact. He moves extremities without difficulty, ambulates with a walker with standby assist. His intake was 1700, output was 5375. LABORATORY DATA: His lab work as of this morning showed his serum sodium was 145, potassium 3.2, chloride 102, bicarbonate 43, anion gap of 0. BUN 33, creatinine 0.8. Estimated GFR was 92.8 mL. His glucose was 84, calcium was 8.9, magnesium was 1.5. His prothrombin time was 23.4, INR of 2.3. ASSESSMENT: 1. Acute on chronic diastolic congestive heart failure, now on albumin, Bumex and metolazone. 2. Persistent atrial fibrillation. He is on Coumadin, metoprolol tartrate, his rate is well controlled and well anticoagulated. 3. Chronic kidney disease; however, creatinine remained within stable and GFR of 93 mL per minute. 4. Severe protein calorie malnutrition. Serum albumin is only 2.1 g/dL because of third spacing. 5. Hypomagnesemia. His magnesium is low this morning at 1.5. 6. Hypokalemia with serum potassium of 3.2. PLAN: Continue diuresing. I will replenish his potassium and magnesium and repeat his labs and hopefully discharge him home tomorrow. DICK FORBES MD DR: GRAHAM/rodolfo JOB#: [id number] / [id number]
[2017-10-14 04:35] VITALS: BP 112/67
[2017-10-14 08:11] LABS: CALCIUM 8.6 mg/dL (8.5-10.1); CREATININE 0.9 mg/dL (0.7-1.3); MAGNESIUM 1.7 mg/dL (1.8-2.4)
[2017-10-14] MEDS: LIDOCAINE (700MG/PATCH) PATCH. TD SCH (09:00)
[2017-10-14] MEDS: POTASSIUM CHLORIDE 20 MEQ TABLET.ER. PO SCH (09:14)
[2017-10-14] MEDS: LACTOBACILLUS RHAMNOSUS GG 1 CAPSULE. PO SCH (09:15)
[2017-10-14] MEDS: metOLazone 5 MG TABLET PO SCH (09:15)
[2017-10-14] MEDS: BUMETANIDE 2.5 MG/10 ML VIAL. IV SCH (09:16)
[2017-10-14] MEDS: ALBUMIN HUMAN 25% 50 ML IV SCH (09:17)
[2017-10-14] MEDS: WARFARIN 1 MG TABLET. PO SCH (09:22)
--- NOTE | 2017-10-14 10:00 | PDOC ---
PROGRESS NOTES Diagnosis Problem Problems Medical Problems: (1) A-fib Status: Acute (2) Acute exacerbation of CHF (congestive heart failure) Status: Acute (3) Chronic renal insufficiency Status: Acute Assessment Problems Medical Problems: (1) A-fib Status: Acute (2) Acute exacerbation of CHF (congestive heart failure) Status: Acute (3) Chronic renal insufficiency Status: Acute Continue IV bumex daily, metolazone daily, extra 40 meq kcl now and then 20 bid at home. BMP, Mg on Wednesday. Hospice to administer daily IV bumex. follow up with Dr Lebron Wed10/27/17 at 3:45 PM 1. Acute on chronic diastolic heart failure - Continued good diuresis IV bumex and metolazone. No respiratory distress. Recommend continued daily IV bumex by hospice for the next week, continue metolazone and check labs on Wednesday. 2. persistent afib - rate controlled. on warfarin and metoprolol 3. CKD - remains stable. repeat labs on Wednesday.. 4. hypokalemia - extra dose of potassium now then continue current BID dose at home. Lab on Wednesday. Follow up with Dr Lebron on Wed10/27/17 at 3:45 pm, [facility] - [place], [place], [address]. Subjective swelling still there but a little better, no dyspnea, no chest pain, no lightheadedness Objective Vital Signs Date Time Temp Pulse Resp B/P (MAP) Pulse Ox O2 Delivery O2 Flow Rate FiO2 10/14/17 04:35 97.5 64 18 112/67 (82) 96 Nasal Cannula 2.0 Intake and Output 10/14/17 07:00 Intake Total 1878 ml Output Total 6250 ml Balance -4372 ml Intake Oral 1670 ml IV Total 208 ml Output Urine Total 6250 ml Abdomen: Normal bowel sounds, Soft Heart: Normal S1, Normal S2, Other Extremities: Other (continued peripheral edema, unchanged in lower extremities , improved bilateral arms, continued sacral edema) General: Alert, Oriented X3, Cooperative, No acute distress HEENT: Atraumatic, EOMI, Mucous membr. moist/pink Lungs: Other (few left basilar crackles, otherwise clear) Neuro: Normal speech Psych/Mental Status: Mental status NL, Mood NL Review of Relevant I have reviewed the following items constantin (where applicable) has been applied. Labs Laboratory Tests Test 10/13/17 06:10 10/14/17 05:15 Prothrombin Time 23.4 SEC (9.4-11.4) 24.2 SEC (9.4-11.4) Prothromb Time International Ratio 2.3 (0.9-1.1) 2.4 (0.9-1.1) Sodium Level 145 mmol/L (136-145) 143 mmol/L (136-145) Potassium Level 3.2 mmol/L (3.5-5.1) 3.0 mmol/L (3.5-5.1) Chloride Level 102 mmol/L (98-107) 99 mmol/L (98-107) Carbon Dioxide Level 43 mmol/L (21-32) 50 mmol/L (21-32) Anion Gap 0 (6-14) -6 (6-14) Blood Urea Nitrogen 33 mg/dL (8-26) 32 mg/dL (8-26) Creatinine 0.8 mg/dL (0.7-1.3) 0.9 mg/dL (0.7-1.3) Estimated GFR (Cockcroft-Gault) 92.8 81.0 Glucose Level 84 mg/dL (70-99) 76 mg/dL (70-99) Calcium Level 8.9 mg/dL (8.5-10.1) 8.6 mg/dL (8.5-10.1) Magnesium Level 1.5 mg/dL (1.8-2.4) 1.7 mg/dL (1.8-2.4) Microbiology 10/06/17 Urine Culture - Final, Complete 10/06/17 Urine Culture Result 1 (ROSALIO) - Final, Complete 10/06/17 Urine Culture Result 2 (ROSALIO) - Final, Complete 10/06/17 Antimicrobic Susceptibility - Final, Complete Medications Current Medications Furosemide (Lasix) 40 mg 1X ONCE IVP Last administered on 10/06/17at 18:21; Start 10/06/17 at 18:15; Stop 10/06/17 at 18:16; Status DC Nitroglycerin (Nitro-Bid Oint) 0.25 inch Q6HRS TP Last administered on at 05:56; Start 10/07/17 at 00:00; Stop 10/07/17 at 13:40; Status DC Morphine Sulfate (Morphine 4mg Syringe) 2 mg PRN Q2HR PRN IV PAIN; Start at 19:30 Potassium Chloride (Klor-Con) 40 meq 1X ONCE PO Last administered on 10/07/17at 13:03; Start 10/07/17 at 12:15; Stop 10/07/17 at 12:21; Status DC Furosemide (Lasix) 40 mg 1X ONCE IVP Last administered on 10/07/17at 13:12; Start 10/07/17 at 12:15; Stop 10/07/17 at 12:20; Status DC Aspirin (Aspirin Enteric Coated) 81 mg HS PO Last administered on 10/13/17 21: 34; Start 10/07/17 at 21:00 Fenofibrate (Tricor) 145 mg HS PO Last administered on 10/13/17 21:33; Start at 21:00 Tamsulosin HCl (Flomax) 0.4 mg HS PO Last administered on 10/13/17at 21:34; Start 10/07/17 at 21:00 Warfarin Sodium (Coumadin) 1.5 mg QODAY PO ; Start 10/09/17 at 09:00; Stop at 09:00; Status DC Warfarin Sodium (Coumadin) 2 mg QODAY PO ; Start 10/09/17 at 09:00; Stop 10/09/17 at 09:00; Status DC Losartan Potassium (Cozaar) 100 mg QHS PO Last administered on 10/10/17 21:18; Start 10/07/17 at 21:00 Metoprolol Succinate (Toprol Xl) 200 mg QHS PO Last administered on 10/13/17at 21 :36; Start 10/07/17 at 21:00 Warfarin Sodium (Coumadin Per Pharmacy) 1 each PRN DAILY PRN MC SEE COMMENTS Last administered on 10/13/17at 12:54; Start 10/07/17 at 12:15 Info (Anti-Coagulation Monitoring By Pharmacy) 1 each PRN DAILY PRN MC SEE COMMENTS; Start 10/07/17 at 12:15; Stop 10/07/17 at 12:22; Status DC Phenazopyridine HCl (Pyridium) 100 mg PRN TID PRN PO URINARY PAIN; Start at 13:00 Lidocaine (Lidoderm) 3 patch DAILY TD Last administered on 10/13/17at 08:53; Start 10/07/17 at 14:00 Ceftriaxone Sodium 1 gm/ Sodium Chloride 50 ml @ 100 mls/hr Q24H IV ; Start 10/07/17 at 13:00; Stop 10/07/17 at 13:20; Status DC Potassium Chloride (Klor-Con) 20 meq TID PO Last administered on 10/13/17at 08:47 ; Start 10/07/17 at 14:00; Stop 10/13/17 at 11:03; Status DC Ceftriaxone Sodium (Rocephin) 1 gm Q24H IVP Last administered on 10/10/17at 13:16 ; Start 10/07/17 at 13:30; Stop 10/11/17 at 13:14; Status DC Furosemide (Lasix) 40 mg 1X ONCE IVP ; Start 10/07/17 at 13:30; Stop 10/07/17 at 13:31; Status DC Furosemide (Lasix) 40 mg DAILY IVP Last administered on 10/08/17at 08:46; Start 10/08/17 at 09:00; Stop 10/08/17 at 10:48; Status DC Warfarin Sodium (Coumadin) 1.5 mg QODAY PO Last administered on 10/13/17at 08:49 ; Start 10/07/17 at 13:30 Lactobacillus Rhamnosus (Culturelle) 1 cap BID PO Last administered on at 09:15; Start 10/07/17 at 21:00 Warfarin Sodium (Coumadin) 2 mg QODAY PO Last administered on 10/14/17at 09:22; Start 10/08/17 at 09:00 Lidocaine (Lidoderm) 3 patch DAILY TD ; Start 10/07/17 at 13:50; Status UNV Magnesium Sulfate 50 ml @ 25 mls/hr 1X ONCE IV Last administered on 10/08/17at 07:41; Start 10/08/17 at 06:45; Stop 10/08/17 at 08:44; Status DC Albumin Human 50 ml @ 50 mls/hr 1X ONCE IV Last administered on 10/08/17at 10:58 ; Start 10/08/17 at 10:45; Stop 10/08/17 at 11:44; Status DC Furosemide 100 mg/ Sodium Chloride 100 ml @ 5 mls/hr CONT PRN IV SEE I/O RECORD Last administered on 10/09/17 08:17; Start 10/08/17 at 10:45; Stop at 16:40; Status DC Magnesium Oxide (Magnesium Oxide) 400 mg BID PO Last administered on 10/09/17 08:31; Start 10/09/17 at 09:00; Stop 10/09/17 at 14:27; Status DC Magnesium Oxide (Magnesium Oxide) 400 mg TID PO Last administered on 10/10/17at 09:05; Start 10/09/17 at 14:30; Stop 10/10/17 at 09:01; Status DC Bumetanide (Bumex) 1 mg BID92 IV Last administered on 10/10/17at 14:00; Start 10/09/17 at 17:00; Stop 10/10/17 at 18:20; Status DC Acetaminophen/ Hydrocodone Bitart (Lortab 5/325) 1 tab PRN Q8HRS PRN PO PAIN Last administered on 10/10/17 11:15; Start 10/10/17 at 11:15 Albumin Human 50 ml @ 50 mls/hr BID IV Last administered on 10/14/17 09:17; Start 10/10/17 at 11:15 Bumetanide (Bumex) 2 mg BID92 IV Last administered on 10/11/17 09:18; Start 10/11/17 at 09:00; Stop 10/11/17 at 10:31; Status DC Metolazone (Zaroxolyn) 2.5 mg DAILY PO Last administered on 10/11/17 09:18; Start 10/10/17 at 18:30; Stop 10/11/17 at 09:50; Status DC Metolazone (Zaroxolyn) 5 mg DAILY PO Last administered on 10/14/17 09:15; Start 10/12/17 at 09:00 Metolazone (Zaroxolyn) 2.5 mg 1X ONCE PO Last administered on 10/11/17at 10:05; Start 10/11/17 at 10:00; Stop 10/11/17 at 10:01; Status DC Bumetanide (Bumex) 2 mg BID92 IV Last administered on 10/14/17at 09:16; Start at 14:00 Levofloxacin/ Dextrose 50 ml @ 50 mls/hr Q24H IV Last administered on 10/13/17at 13:30; Start 10/11/17 at 13:30; Stop 10/14/17 at 09:48; Status DC Potassium Chloride (Klor-Con) 20 meq BID PO Last administered on 10/14/17at 09: 14; Start 10/13/17 at 21:00 Potassium Chloride (Klor-Con) 20 meq 1X ONCE PO Last administered on 10/13/17at 11:32; Start 10/13/17 at 11:15; Stop 10/13/17 at 11:18; Status DC Multi-Ingred Cream/Lotion/Oil/ Oint (Hydrocerin) 1 jhony PRN DAILY PRN TP DRY SKIN / SCALING; Start 10/13/17 at 13:00 Potassium Chloride (Klor-Con) 20 meq BID PO ; Start 10/13/17 at 21:00; Stop at 21:00; Status DC Potassium Chloride (Klor-Con) 40 meq 1X ONCE PO ; Start 10/13/17 at 13:00; Stop 10/13/17 at 13:04; Status DC Magnesium Sulfate 50 ml @ 25 mls/hr 1X ONCE IV Last administered on 10/13/17at 13:00; Start 10/13/17 at 13:00; Stop 10/13/17 at 14:59; Status DC Levofloxacin (Levaquin) 250 mg DAILY06 PO ; Start 10/14/17 at 11:00 Active Scripts Active Reported Triamcinolone Acetonide 15 Gm Cream..g. 1 Jhony TP DAILY apply to LE bilateral TP every day shift. Cleanse, apply cream, xeroform gauze. Then dry dressing, roll gauze. Compression dressing. Tamsulosin Hcl 0.4 Mg Cap.er.24h 1 Cap PO HS Tylenol (Acetaminophen) 325 Mg Tablet 2 Tab PO PRN Q6HRS Zoloft (Sertraline Hcl) 25 Mg Tablet 1 Tab PO HS Cozaar (Losartan Potassium) 100 Mg Tablet 100 Mg PO HS Coumadin (Warfarin Sodium) 1 Mg Tablet 1.5 Tab PO QODAY 1.5 MG Every Wed, Wed, , Wed Coumadin (Warfarin Sodium) 1 Mg Tablet 2 Mg PO QODAY 2mg due Wednesday, Wed Potassium Chloride 10 Meq Capsule.er 1 Cap PO DAILY LAST DOSE GIVEN: DATE: TODAY TIME: AM NEXT DOSE DUE: DATE: TOMORROW TIME: AM Vitamin E (Vitamin E Acetate) 400 Unit Capsule 400 Unit PO DAILY NEXT DOSE DUE: DATE: RESTART TODAY TIME: WHEN YOU GET HOME NEXT DOSE DUE: DATE: RESTART TODAY TIME: WHEN YOU GET HOME Fenofibrate (Fenofibrate Nanocrystallized) 145 Mg Tablet 1 Tab PO HS LAST DOSE GIVEN: DATE: YESTERDAY TIME: AT BEDTIME NEXT DOSE DUE: DATE: TODAY TIME: AT BEDTIME Calcium 500 + Vit D 200 Tablet (Calcium Carbonate/Vitamin D3) 1 Each Tablet 1 Each PO DAILY LAST DOSE GIVEN: DATE: TODAY TIME: AM NEXT DOSE DUE: DATE: TOMORROW TIME: AM Loratadine 10 Mg Tablet 1 Tab PO DAILY LAST DOSE GIVEN: DATE: TODAY TIME: AM NEXT DOSE DUE: DATE: TOMORROW TIME: AM Aspir 81 (Aspirin) 81 Mg Tablet.dr 81 Mg PO HS LAST DOSE GIVEN: DATE: TODAY TIME: AM NEXT DOSE DUE: DATE: TOMORROW TIME: AM Flax Seed Oil (Flaxseed Oil) 1,000 Mg Capsule 1,000 Mg PO DAILY NEXT DOSE DUE: DATE: RESTART TODAY TIME: WHEN YOU GET HOME NEXT DOSE DUE: DATE: RESTART TODAY TIME: WHEN YOU GET HOME Fish Oil Softgel (Verdon-3 Fatty Acids/Fish Oil) 1 Each Capsule 2 Each PO DAILY LAST DOSE GIVEN: DATE: TIME: AM NEXT DOSE DUE: DATE: TODAY TIME: PM Furosemide 20 Mg Tablet 40 Mg PO DAILY LAST DOSE GIVEN: DATE: Today TIME: AM NEXT DOSE DUE: DATE: Tomorr TIME: AM TIME: PM THEN TAKE 40 MG ONCE DAILY STARTING Wednesday Metoprolol Succinate ( Xl ) (Metoprolol Succinate) 200 Mg Tab.er.24h 200 Mg PO DAILY LAST DOSE GIVEN: DATE: YESTER TIME: AT BEDTIME NEXT DOSE DUE: DATE: TODAY TIME: AT BEDTIME Vitals/I & O Vital Sign - Last 24 Hours 10/13/17 10/13/17 10/13/17 10/13/17 11:08 15:00 19:40 20:05 Temp 97.6 98.2 97.4 Pulse 87 54 77 Resp 18 B/P (MAP) 105/65 (78) 119/64 (82) 111/68 (82) Pulse Ox 99 96 97 O2 Delivery Nasal Cannula Nasal Cannula Nasal Cannula Nasal Cannula O2 Flow Rate 2.0 2.0 2.0 2.0 10/13/17 10/13/17 10/14/17 21:36 23:00 04:35 Temp 98.2 97.5 Pulse 77 70 64 Resp 18 18 B/P (MAP) 111/68 112/66 (81) 112/67 (82) Pulse Ox 96 96 O2 Delivery Nasal Cannula Nasal Cannula O2 Flow Rate 2.0 2.0 Intake and Output 10/13/17 10/13/17 10/14/17 15:00 23:00 07:00 Intake Total 697 ml 1081 ml 100 ml Output Total 1400 ml 3100 ml 1750 ml Balance -703 ml -2019 ml -1650 ml KRISTIE DAVIS [employer] October 14, 2017 10:00
[2017-10-14] MEDS ORDERED: levoFLOXacin 250 MG TABLET PO SCH (11:00)
[2017-10-14] MEDS ORDERED: POTASSIUM CHLORIDE 20 MEQ TABLET.ER. PO ONE (12:00)
--- NOTE | 2017-10-14 15:25 | DS ---
DATE OF DISCHARGE: 10/14/2017 HISTORY OF PRESENT ILLNESS: The patient is an 82-year-old male patient who was admitted on 10/07/2017 as a direct admit from the Cardiology office as he gained about 40 pounds. However, the patient himself denied any shortness of breath at rest, but stated that he is very short of breath on exertion. He also complained of pain in his knees and shoulders and apparently has been using ibuprofen and was probably the reason why he is retaining a lot of fluid; however, he denied any chest pain and basically was admitted for treatment of his fluid overload. He was started initially on IV Lasix without much improvement. He was started on IV Lasix drip, eventually he was switched to Bumex as well as metolazone together with the salt-poor human albumin and he did actually very well. His weight came down steadily from 202 on admission, down to 179. As of today, has a weight loss of almost 24 pounds. PHYSICAL EXAMINATION: GENERAL: When I examined him this morning, he looked well and was clearly in no apparent respiratory distress, was pale, but no jaundice or cyanosis. No lymphadenopathy, no thyromegaly. No jugular venous distention, but mild bilateral lower limb edema. VITAL SIGNS: His heart rate was 64, blood pressure was 112/67, temperature was 97.5, respiratory rate was 18 and oxygen saturation was 96% on 2 liters of oxygen. HEAD, EYES, EARS, NOSE AND THROAT: Normocephalic, atraumatic. NECK: Supple. HEART: Showed normal first and second sounds. No gallop, rub or murmur. CHEST: Clear to auscultation. No crepitation or rhonchi. ABDOMEN: Distended, soft, nontender. NEUROLOGIC: He is awake, alert, responding appropriately. Cranial nerves intact. He moves extremities without difficulty. He ambulates with a walker with minimal assist. He continued to have bilateral lower limb edema. His intake over the last 24 hours was 1878, output was 6250. His weight this morning was 179 pounds. LABORATORY DATA: Showed a white cell count of 9900, hemoglobin 12.5, hematocrit 37.3, MCV 95 and platelet count of 190,000. His chemistry this morning showed a serum sodium 143, potassium 3, chloride 99, bicarbonate 50, anion gap of zero, BUN of 32, creatinine 0.9, estimated GFR was 81 mL per minute. His glucose was 76, calcium was 8.6, magnesium was 1.7. His prothrombin time as of this morning was 24.2. INR of 2.4. DISCHARGE MEDICATIONS: He will be discharged home hospice to continue on the following medications: Tylenol 650 mg every 6 hours as needed, aspirin 81 mg once a day, calcium carbonate with vitamin D one tablet twice a day, fenofibrate 145 mg once a day, flaxseed oil 1000 mg daily, furosemide 40 mg once a day, loratadine 10 mg once a day, losartan potassium for Cozaar 100 mg at bedtime, metoprolol succinate 200 mg daily, omega 3 fatty acid 2 capsules daily, potassium chloride 10 mEq once a day, sertraline for Zoloft 25 mg daily, Flomax 0.4 mg at bedtime, triamcinolone acetonide 15 grams applied topically, vitamin E 400 units daily, warfarin sodium 1-1.5 mg alternating. FINAL DISCHARGE DIAGNOSES: 1. Acute on chronic diastolic congestive heart failure. 2. Chronic atrial fibrillation, rate controlled, well anticoagulated. 3. Chronic renal failure. 4. Severe protein calorie malnutrition with serum albumin is only 2.1 g/dL. 5. Hypomagnesemia, slightly improved at 1.7. 6. Hypokalemia with serum potassium of 3. The patient will replenish his potassium. He will be discharged home with hospice. DICK FORBES MD DR: GRAHAM/rodolfo JOB#: [id number] / [id number]
== END 2017-10-14 13:10 | disposition hospice, home (50) | DRG 291 ==
LOC: ER 16:16 → ICU 19:22 → 1 SOUTH 10-09 07:06
PROVIDERS: ADMIT Internal Medicine; ATTEND Internal Medicine
PROC: 02HV33Z Insertion of Infusion Device into Superior Vena Cava, Percutaneous Approach (ICD-10-PCS; principal; 2017-10-08)
PROC: B548ZZA Ultrasonography of Superior Vena Cava, Guidance (ICD-10-PCS; 2017-10-08)
DX: I13.0 Hypertensive heart and chronic kidney disease with heart failure and stage 1 through stage 4 chronic kidney disease, or unspecified chronic kidney disease (principal); E43 Unspecified severe protein-calorie malnutrition; E11.22 Type 2 diabetes mellitus with diabetic chronic kidney disease; D68.59 Other primary thrombophilia; I48.1 Persistent atrial fibrillation; E83.42 Hypomagnesemia; I48.2 Chronic atrial fibrillation; I50.33 Acute on chronic diastolic (congestive) heart failure; T83.511A Infection and inflammatory reaction due to indwelling urethral catheter, initial encounter; N39.0 Urinary tract infection, site not specified; E78.00 Pure hypercholesterolemia, unspecified; Y84.6 Urinary catheterization as the cause of abnormal reaction of the patient, or of later complication, without mention of misadventure at the time of the procedure; E78.5 Hyperlipidemia, unspecified; I25.10 Atherosclerotic heart disease of native coronary artery without angina pectoris; M17.0 Bilateral primary osteoarthritis of knee; M19.012 Primary osteoarthritis, left shoulder; M19.011 Primary osteoarthritis, right shoulder; N18.9 Chronic kidney disease, unspecified; E87.6 Hypokalemia; Z88.8 Allergy status to other drugs, medicaments and biological substances; Z68.27 Body mass index [BMI] 27.0-27.9, adult; Z79.01 Long term (current) use of anticoagulants; Z91.048 Other nonmedicinal substance allergy status; Y92.89 Other specified places as the place of occurrence of the external cause
CPT/HCPCS: 36415; 36569; 71045; 80048; 80053; 81001; 82553; 82947; 83735; 83880; 84443; 84484; 85025; 85027; 85610; 87086; 87186; 87641; 93005; 96374; J0696; J1940; J1956; J3475; J3490; P9046; 99285-25